=== PATIENT | male | born 1940 | race Caucasian/White ===

== ENCOUNTER → 2018-03-14 14:41 | Outpatient (CLI) | payer MEDICARE, OTHER, SELFPAY ==
[2018-03-14 15:49] LABS: Appearance Urine UA SL CLOUDY; Bilirubin Urine UA NEGATIVE (NEGATIVE); Color Urine UA YELLOW; Glucose Urine UA NEGATIVE (Normal); Ketones Urine UA NEGATIVE (NEGATIVE); Leukocyte Esterase Urine UA 3+ (NEGATIVE); Nitrite Urine UA POSITIVE (Negative); Occult Blood Urine UA TRACE-LYSED (Negative); Protein Urine UA NEGATIVE (Negative); Urobilinogen Urine UA 0.2 E.U./dL (0.2)
[2018-03-14 16:04] LABS: Bacteria Urine Many (>30); Culture Indicated Urine Specimen Cultured; RBC Urine 1-5/HPF (0-5/HPF); Squamous Epithelial Cell Urine 0-1 /HPF; WBC Urine 30-100/HPF (0-5/HPF)
== END ==
PROVIDERS: Family Provider Family Medicine; PCP Family Medicine; Visit Provider Family Medicine
DX: M54.9 Dorsalgia, unspecified (principal); R30.0 Dysuria
CPT/HCPCS: 81003; 81015; 87086

== ENCOUNTER → 2018-08-14 10:43 | Outpatient (CLI) | payer MEDICARE, OTHER, SELFPAY ==
[2018-08-14 11:36] LABS: Hematocrit 41.7 % (41-53); Hemoglobin 13.8 g/dL (13.5-17.5); Mean Corpuscular HGB Conc 33.1 % (30-36); Mean Corpuscular Hemoglobin 30.1 PG (26-34); Mean Corpuscular Volume 91.1 fL (80-100); Platelet Count 223 X10^3/uL (150-400); Red Blood Cell Count 4.58 X10^6/uL (4.5-5.9); Red Cell Distribution Width 13.6 % (11.6-14.8)
[2018-08-14 11:37] LABS: Appearance Urine UA SL CLOUDY; Bilirubin Urine UA NEGATIVE (NEGATIVE); Color Urine UA YELLOW; Glucose Urine UA NEGATIVE (Negative); Ketones Urine UA NEGATIVE (NEGATIVE); Leukocyte Esterase Urine UA 3+ (NEGATIVE); Nitrite Urine UA POSITIVE (Negative); Occult Blood Urine UA TRACE-INTACT (Negative); Protein Urine UA NEGATIVE (Negative); Urobilinogen Urine UA 0.2 E.U./dL (0.2); pH Urine UA 6.5 (4.5-8.0)
[2018-08-14 11:50] LABS: Alanine Aminotransferase 19 IU/L (21-72); Albumin 4.6 g/dL (3.5-5.0); Albumin Globulin Ratio 1.3 (1.0-2.8); Alkaline Phosphatase 89 U/L (38-126); Aspartate Aminotransferase 17 IU/L (17-59); Bilirubin Total 0.6 mg/dL (0.2-1.3); Blood Urea Nitrogen 11 mg/dL (9-20); Calcium 9.5 mg/dL (8.4-10.2); Carbon Dioxide 26 mmol/L (22-32); Chloride 101 mmol/L (98-107); Cholesterol 230 mg/dL (140-199); Estimated Glomerular Filt Rate > 60.0 mL/min (>60); Globulin 3.6 g/dL (1.7-4.1); Glucose 97 mg/dL (80-110); HDL Cholesterol 53 mg/dL (40-60); HEMOLYSIS < 15 (0-50); LDL Cholesterol Calculated 158 mg/dL (<100); Potassium 5.1 mmol/L (3.4-5.1); Sodium 137 mmol/L (137-145); Total Protein 8.2 g/dL (6.3-8.2); Triglycerides 96 mg/dL (35-150)
[2018-08-14 11:51] LABS: RBC Urine 0-1/HPF (0-5/HPF)
[2018-08-14 11:52] LABS: Amorphous Sediment Urine 2+; Bacteria Urine Moderate (10-30); Culture Indicated Urine Specimen Cultured; Squamous Epithelial Cell Urine 0-1 /HPF; WBC Urine 30-100/HPF (0-5/HPF)
[2018-08-14 12:19] LABS: Prostate Specific Antigen Scrn 1.72 ng/mL (0.1-4.0)
[2018-08-14 12:34] LABS: Vitamin D 25 Hydroxy (D3) 40.5 ng/mL (30.0-100.0)
== END ==
PROVIDERS: PCP Family Medicine; Visit Provider Family Medicine
DX: Z00.00 Encounter for general adult medical examination without abnormal findings (principal); E55.9 Vitamin D deficiency, unspecified; Z51.81 Encounter for therapeutic drug level monitoring; Z13.9 Encounter for screening, unspecified; Z12.5 Encounter for screening for malignant neoplasm of prostate
CPT/HCPCS: 36415; 80053; 80061; 81001; 82306; 85027; 87086; G0103

== ENCOUNTER → 2018-10-23 17:05 | Outpatient (CLI) | payer MEDICARE, OTHER, SELFPAY | PROVIDERS: Family Provider Family Medicine; PCP Family Medicine; Visit Provider Family Medicine | DX: R30.0 Dysuria (principal); R35.0 Frequency of micturition | CPT/HCPCS: 87086 ==

== ENCOUNTER → 2020-06-16 11:13 | Outpatient (CLI) | payer MEDICARE, OTHER, SELFPAY ==
[2020-06-16 12:13] LABS: Add Manual Diff / Slide Review NO; Basophils Absolute Auto 100 /uL (0-100); Basophils Percent Auto 1.2 % (0-2); Eosinophils Absolute Auto 200 /uL (0-450); Eosinophils Percent Auto 3.6 % (2-4); Hematocrit 40.5 % (41-53); Hemoglobin 13.7 g/dL (13.5-17.5); Lymphocytes Absolute Auto 1400 /uL (1100-4500); Lymphocytes Percent Auto 21.5 % (25-40); Mean Corpuscular HGB Conc 33.9 % (30-36); Mean Corpuscular Hemoglobin 30.4 PG (26-34); Mean Corpuscular Volume 89.9 fL (80-100); Monocytes Absolute Auto 600 /uL (0-900); Monocytes Percent Auto 9.5 % (3-14); Neutrophils Absolute Auto 4000 /uL (1500-7000); Neutrophils Percent Auto 64.2 % (50-75); Platelet Count 224 X10^3/uL (150-400); Red Cell Distribution Width 14.2 % (11.6-14.8); White Blood Cell Count 6.3 X10^3/uL (4.5-11.0)
[2020-06-16 12:47] LABS: Alanine Aminotransferase 13 IU/L (<50); Albumin 4.4 g/dL (3.5-5.0); Albumin Globulin Ratio 1.5 (1.0-2.8); Alkaline Phosphatase 93 U/L (38-126); Aspartate Aminotransferase 22 IU/L (17-59); BUN Creatinine Ratio 14.6 (6-22); Bilirubin Total 0.5 mg/dL (0.2-1.3); Blood Urea Nitrogen 13 mg/dL (9-20); Calcium 9.8 mg/dL (8.4-10.2); Carbon Dioxide 27 mmol/L (22-32); Chloride 98 mmol/L (98-107); Estimated Glomerular Filt Rate > 60.0 mL/min (>60); Globulin 2.9 g/dL (1.7-4.1); Glucose 97 mg/dL (80-110); HEMOLYSIS < 15 (0-50); Potassium 4.9 mmol/L (3.4-5.1); Sodium 130 mmol/L (137-145); Total Protein 7.3 g/dL (6.3-8.2)
[2020-06-16 13:04] LABS: Appearance Urine UA SL CLOUDY; Bilirubin Urine UA NEGATIVE (NEGATIVE); Color Urine UA YELLOW; Glucose Urine UA NEGATIVE (Negative); Ketones Urine UA NEGATIVE (NEGATIVE); Leukocyte Esterase Urine UA 3+ (NEGATIVE); Nitrite Urine UA POSITIVE (Negative); Occult Blood Urine UA 1+ (Negative); Protein Urine UA NEGATIVE (Negative); Urobilinogen Urine UA 0.2 E.U./dL (0.2); pH Urine UA 6.5 (4.5-8.0)
[2020-06-16 13:14] LABS: Amorphous Sediment Urine 1+; Bacteria Urine Moderate (10-30); Culture Indicated Urine Specimen Cultured; Mucus Urine 1+ (Negative); RBC Urine 1-5/HPF (0-5/HPF); Renal Epithelial Cells Urine 0-1/HPF (0-1/HPF); Squamous Epithelial Cell Urine 1-5 /HPF (0-5/HPF); WBC Urine 30-100/HPF (0-5/HPF)
[2020-06-16 13:17] LABS: TSH w/ Reflex to FT4 1.54 uIU/mL (0.47-4.68)
[2020-06-16 13:18] LABS: Prostate Specific Antigen Scrn 2.98 ng/mL (0.1-4.0)
== END ==
PROVIDERS: Family Provider Family Medicine; PCP Family Medicine; Referring Provider Family Medicine; Visit Provider Family Medicine
DX: Z00.00 Encounter for general adult medical examination without abnormal findings (principal); N40.0 Benign prostatic hyperplasia without lower urinary tract symptoms
CPT/HCPCS: 36415; 80053; 81001; 84153; 84443; 85025; 87086; G0103

== ENCOUNTER → 2020-07-02 11:10 | Outpatient (CLI) | payer MEDICARE, OTHER, SELFPAY ==
--- NOTE | 2020-07-02 11:11 | DI.US.S_ITS ---
PROCEDURE: US SOFT TISSUE HEAD AND NECK INDICATIONS: Cystic mass behind left ear TECHNIQUE: Real-time scanning was performed of the neck region of interest, with image documentation. COMPARISON: [facility], CT, HEAD WITHOUT CONTRAST, 01/07/2017, 12:35. FINDINGS: A cystic mass is identified posterior to the left ear inferiorly, comprised of a hypoechoic fluid-filled structure containing internal debris and septations with internal vascularity involving the septations and overall size 2.4 x 1.9 x 3.7 cm. Anterior and inferior to the right ear a complex predominantly solid mass also is seen with internal vascularity and overall measuring 2.5 x 1.1 x 2.9 cm. IMPRESSION: Bilateral complex masses are present adjacent to each year, measuring up to 3.7 cm on the left and 2.5 cm on the right. Recommend contrast-enhanced facial CT or MR scanning for further characterization. MR scanning would be preferred if possible. Neoplastic process would be suspected based on the imaging findings alone, bilaterally. Dictated by: Tristian Wells M.D. on 07/02/2020 at 13:01 Approved by: Tristian Wells M.D. on 07/02/2020 at 13:05
== END ==
PROVIDERS: Family Provider Family Medicine; PCP Family Medicine; Referring Provider Family Medicine; Visit Provider Family Medicine
DX: R22.1 Localized swelling, mass and lump, neck (principal)
CPT/HCPCS: 76536

== ENCOUNTER → 2020-07-30 11:30 | Outpatient (CLI) | payer MEDICARE, OTHER, SELFPAY ==
--- NOTE | 2020-07-30 11:31 | DI.MRI.S_ITS ---
PROCEDURE: MR ORBITS FACE NECK WO/W CON INDICATIONS: Assess bilateral masses inferior posterior ears TECHNIQUE: Sagittal/axial/coronal T1 spin echo and STIR. After the administration of contrast, axial/coronal/sagittal T1 fast spin echo with fat saturation through the neck. COMPARISON: None. FINDINGS: Image quality: Excellent. Lymph nodes: No enlarged nodes are seen throughout the neck. There is a cluster of small shotty, non pathologically enlarged lymph nodes inferior to the left parotid gland mass. Vessels: Visualized vasculature appears normal, with mony flow voids and enhancement. Neck spaces: The oropharynx, nasopharynx and pharynx are unremarkable, without mucosal lesions seen. Vocal cords, false vocal cords, pyriform sinuses, epiglottis, vallecula, and tongue base all appear normal. Extramucosal spaces of the neck also appear unremarkable. Glands: There are bilateral parotid gland region masses. The left parotid mass is multilobulated and likely cystic with increased T1 signal, measuring 2.4 by 1.9 x 2.4 cm. It does not enhance. The right parotid mass is relatively isointense to the parotid with very minimal peripheral enhancement. It is quite superficial. It measures perhaps 2.5 x 1.6 x 2.2 cm. It is immediately beneath the skin marker. The submandibular glands are unremarkable. Thyroid gland is unremarkable. Miscellaneous: Visualized brain and orbits appear normal. Lung apices appear clear. Superficial soft tissues appear normal. Visualized sinuses and mastoids appear clear. Bones: Marrow has normal overall signal. IMPRESSION: 1. 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 The left parotid gland mass is likely cystic. 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 Comment: Recommend ENT consultation. Dictated by: Juan Diego Welch M.D. on 07/30/2020 at 14:19 Approved by: Juan Diego Welch M.D. on 07/30/2020 at 14:26
== END ==
PROVIDERS: Family Provider Family Medicine; PCP Family Medicine; Referring Provider Family Medicine; Visit Provider Family Medicine
DX: H93.8X3 Other specified disorders of ear, bilateral (principal); R22.1 Localized swelling, mass and lump, neck
CPT/HCPCS: 70543

== ENCOUNTER → 2020-08-18 14:16 | Outpatient (CLI) | payer MEDICARE, OTHER, SELFPAY ==
[2020-08-19 16:27] LABS: Fecal Immunochemical Test Negative (Negative)
== END ==
PROVIDERS: Family Provider Family Medicine; PCP Family Medicine; Referring Provider Family Medicine; Visit Provider Family Medicine
DX: Z12.11 Encounter for screening for malignant neoplasm of colon (principal)
CPT/HCPCS: 82274

== ENCOUNTER 2020-10-20 12:15 | Outpatient (RCR) | payer MEDICARE, OTHER, SELFPAY ==
--- NOTE | 2020-10-06 16:01 | PT.OIE ---
Current Diagnoses Unsteadiness on feet (10/06/20) Past Medical History (Last Updated 06/16/20 @ 12:05 by Hany Mayberry DO) BPH (benign prostatic hyperplasia) Erectile dysfunction Gait instability Neck mass Toenail fungus Uses walker Well adult exam Past Surgical History (Last Updated 10/03/19 @ 20:31 by Chelsie De Luna) Anesthesia History of cataract removal with insertion of prosthetic lens Visit Care Team Role Provider Type Hany Mayberry DO Attending Provider Physician Family Provider Primary Care Provider Referring Provider Specialty: [facility] Address: [address] [place] [address] Email: [email or web address] Initial Evaluation PT-OP-A Visit Information Start: 09/25/20 08:01 Freq: Status: Active Protocol: Document 10/06/20 13:46 MB (Rec: 10/06/20 14:05 MB [id number]) Out-Patient Physical Therapy Visit Information Visit Information Visit Type Initial Evaluation Visit Note Medicare Pt arrives with Glo, family member Visit Start Time 13:46 Visit Stop Time 14:30 Total Visit Minutes 44 Visit Number 1 Precautions Precautions Central appearing mobility, cannot stand or walk without assist PT-OP-B Current Condition Start: 09/25/20 08:01 Freq: Status: Active Protocol: Document 10/06/20 13:46 MB (Rec: 10/06/20 14:05 MB [id number]) Current Condition History of Current Condition Onset Date 10 years Current Complaints Leg weakness History of Current Condition Pt reports that he was on statins for 5 years and his legs got weak. His doctor told him that he could get off of them and his weakness stayed the same. 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 Pt fell 6 months ago over a mat in the bathroom. He could not get up. He reports he bruised his left ribs. Mike has two houses. He has one in [place]. 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 Mike has a life line, uses a rollator, walk-in bath, raised commode. Pt has been using the walker about 5 years . PMH: falls, left sided rib pain 4/10, medial thigh pain, smoking, arthritis, occ dizziness with sharp turns when walking and no dizziness in bed. Pt reports that he is sedentary in general. Treatment Goals Patient/Caregiver Goals To be able to walk again without a wheelchair or walker PT-OP-C Subjective Start: 09/25/20 08:01 Freq: Status: Active Protocol: Document 10/06/20 13:46 MB (Rec: 10/06/20 14:05 MB [id number]) OP-PT Subjective Patient Comments Patient Comments See history of current condition Patient Questionnaires Lower Extremity Functional Scale LEFS Score 17 LEFS Impairment 60 to 79% Impaired (Score 17- 31) PT-OP-D Balance Start: 09/25/20 08:01 Freq: Status: Active Protocol: Document 10/06/20 13:46 MB (Rec: 10/06/20 16:01 MB [id number]) OP-PT Balance Assessment Sitting Balance Static Sitting Balance Ability Fair Dynamic Sitting Balance Ability Fair Sitting Balance Comments UE support for dynamic sitting including LAQ for MMT, posterior lean into w/c Standing Balance Static Standing Balance Ability Poor Dynamic Standing Balance Ability Poor Standing Balance Comments Pt cannot stand upright without use of rollator or forearm assist from PT and he is very uncomfortable with standing without rollator. He has bounce-type response through legs with standing up, ataxic movement and inability to support his weight through his legs. Mod A to stand without AD and CGA for standing with rollator Balance Tests Other Other Balance Tests Performed Unable to tolerate any balance testing Thomas Fall Scale Copyright Permission PT-OP-G Mobility & Gait Start: 09/25/20 08:01 Freq: Status: Active Protocol: Document 10/06/20 13:46 MB (Rec: 10/06/20 16:01 MB [id number]) OP Mobility Evaluation Transfers Sit to Stand Cues to lock w/c and to push up from the w/c. Pte tends to stand up using rollator that is unlocked and then unsafely back in w/c, not stepping back with rollator and not square to seat. CGA and cues Wheelchair Management Assessment Details Pt requires assistance to manage wheelchair as he is weak through arms to push it-- max A to dependent OP Gait Assessment Gait Gait Assistance Required: Contact Guard Assist,1 Person Assist Distance (Feet) 40 Able to Maintain Weight Bearing Status Yes During Gait Assistive Devices Assistive Device Gait Belt,4 Wheeled Walker Orthotic/Prosthetic Devices or Brace: No Gait Deviations General Gait Pattern Ataxic,Decreased Stride Length ,Decreased Feet Clearance, Flexed Trunk,Step-to Gait Factors Limiting Gait Function Factors Limiting Gait Function Abnormal Tonal Influences, Decreased Activity Tolerance, Decreased Strength,Difficulty Following Directions, Incoordination,Poor Balance, Poor Safety Awareness Comments Gait Comments Pt's gait is ataxic and appears to have a tonal/clonus type bounce through his hips and knees that appears to be central in nature--trouble with legs accepting weight when he gets to his feet Stair Climbing Evaluation Comments Stair Climbing Comments Unable to do steps PT-OP-H Neuro Start: 10/06/20 15:41 Freq: Status: Active Protocol: Document 10/06/20 13:46 MB (Rec: 10/06/20 16:01 MB [id number]) Sensation Evaluation Gross Sensation Gross Sensation WNL Comments Summary Comments Pt presents with reduced proprioception left great toe. Right great toe is intact. He reports occ pain through his inner B thighs and unsure if this is sensation description. Coordination Evaluation Upper Extremity Tests Left Pronation/Supination Test Severe Impairment Right Pronation/Supination Test Minimal Impairment Lower Extremity Tests Left Foot Tapping Test Moderate Impairment Right Foot Tapping Test Minimal Impairment Comments Coordination Comments For foot tapping, pt tapping over opposite foot to the floor PT-OP-K Range of Motion Start: 09/25/20 08:01 Freq: Status: Active Protocol: Document 10/06/20 13:46 MB (Rec: 10/06/20 16:01 MB [id number]) TMJ Range of Motion Comments Comments Smile is equal and normal B Shoulder Goniometric Range of Motion Shoulder Bilateral Shoulder ROM WFL Yes Testing Position Sitting Comments Shoulder flexion in sitting assessed Knee Goniometric Range of Motion Knee Bilateral Knee ROM WFL Yes Patient Position Sitting Comments Extension is normal in sitting , movement is dysmetric, ataxic B Ankle and Foot Goniometric Range of Motion Ankle and Foot ROM Limitations Comments Limited B DF and PF, no clonus detected with rapid passive DF PT-OP-M Strength Start: 09/25/20 08:01 Freq: Status: Active Protocol: Document 10/06/20 13:46 MB (Rec: 10/06/20 16:01 MB [id number]) Shoulder Strength Shoulder Manual Muscle Testing Left Flexion 3+ Fair+ Right Flexion 4 Good Knee Strength Knee Manual Muscle Testing Left Extension (L3) 3+ Fair+ Right Extension (L3) 4 Good Ankle/Foot Strength Ankle and Foot Manual Muscle Testing Bilateral Comments Pt does not follow commands well for ankle MMT or great toe MMT, weaker on the left PT-OP-T Assessment and Plan Start: 09/25/20 08:01 Freq: Status: Active Protocol: Document 10/06/20 13:46 MB (Rec: 10/06/20 16:01 MB [id number]) Physical Therapy Assessment Rehab Potential Rehabilitation Potential Fair Evaluation Complexity Number of Personal Factors/Comorbidities 3 or More Number of Body Systems Impaired 3 Clinical Presentation at Evaluation Evolving Impairments Impairments Activity Tolerance,Balance, Coordination,Functional Activities,Functional Mobility ,Gait,Sensation,Strength, Transfers Other Impairments Personal factors include poor historian, smoking, home alone and trouble getting transportation. Body systems include cardiopulmonary, neurological and orthopedic. His clinical presentation is evolving. Other Concerns Fall Risk Yes Goals 3 Care Home Goal (LTG) Pt will perform HEP with I including safe transfers, pre- gait and strengthening exercises to improve I and balance by 12/08/20. LTG Duration 8 weeks 2 Care Home Goal (LTG) Pt will perform WNLs on Tinetti balance test to decrease fall risk by 12/08/20. LTG Duration 8 weeks 1 Care Home Goal (LTG) Pt will perform sit to stand transfers with I and proper hand positioning and distance from chair and AD to decrease fall risk with transfers by 05/21. LTG Duration 8 weeks Assessment Summary Assessment Pt is an 80 y/o male presenting with reports of long onset of LE weakness that he thought might be due to statin use in the past. He denies cardiopulmonary and central processes, spinal and other injuries. Pt presents with trouble with weight acceptance through B LEs and his presentation is bounce- like, dysmetric and ataxic. His gait has a similar pattern . Rapid supination and pronation is dyskinetic left upper extremity and he has greater weakness on his left side compared to this right in both his UEs and LEs. He has reduced proprioception left great toe. Overall, PT is concerned about an underlying central process and recommends return to Dr. Mayberry for further work-up and possible neurology consult. PT can continue to see pt for safety, transfer and gait training to help decrease fall risk and improve function. Physical Therapy Plan Frequency and Duration Frequency of Treatment 2x/Week Duration of Treatment 8 weeks Plan of Care Start Date 10/06/20 Plan of Care End Date 12/08/20 Therapeutic Interventions Therapeutic Interventions Balance Training,Canalithic Repositioning,Coordination Training,Gait Training,Home Exercise Program,Manual Therapy,Neuromuscular Re- education,Patient/Caregiver Education,Self-Care/Home Management,Soft Tissue Mobilization,Taping, Therapeutic Activities, Therapeutic Exercises, Vestibular Rehabilitation, Wheelchair Management Modalities Cold Pack/Ice Massage,Hot Packs Other Referrals/Consults Referrals/Consults Recommended Return to Dr. Mayberry for possible spine and brain diagnostics and neurology consult. Next Visit Focus/Plan Next Note Type Treatment Note Next Visit Plan Initiate recumbent stepper and safe sit to stand training
--- NOTE | 2020-10-06 16:01 | PT.OPPOC ---
Addendum entered and electronically signed by Ela Magana PT 10/13/20 15:29: Resend to Dr. Mayberry Original Note: Physical, Occupational & Speech Therapy At [facility] Current Diagnoses Unsteadiness on feet (10/06/20) Visit Care Team Role Provider Type Hany Mayberry DO Attending Provider Physician Family Provider Primary Care Provider Referring Provider Specialty: Family Practice Address: [address] [place] [address], [facility] Email: [email or web address] PT-OP-T Assessment and Plan Start: 09/25/20 08:01 Freq: Status: Active Protocol: Document 10/06/20 13:46 MB (Rec: 10/06/20 16:01 MB [id number]) Physical Therapy Assessment Rehab Potential Rehabilitation Potential Fair Evaluation Complexity Number of Personal Factors/Comorbidities 3 or More Number of Body Systems Impaired 3 Clinical Presentation at Evaluation Evolving Impairments Impairments Activity Tolerance,Balance, Coordination,Functional Activities,Functional Mobility ,Gait,Sensation,Strength, Transfers Other Impairments Personal factors include poor historian, smoking, home alone and trouble getting transportation. Body systems include cardiopulmonary, neurological and orthopedic. His clinical presentation is evolving. Other Concerns Fall Risk Yes Goals 3 Seed Buyer Goal (LTG) Pt will perform HEP with I including safe transfers, pre- gait and strengthening exercises to improve I and balance by 12/08/20. LTG Duration 8 weeks 2 Seed Buyer Goal (LTG) Pt will perform WNLs on Tinetti balance test to decrease fall risk by 12/08/20. LTG Duration 8 weeks 1 Fpc Goal (LTG) Pt will perform sit to stand transfers with I and proper hand positioning and distance from chair and AD to decrease fall risk with transfers by 05/21. LTG Duration 8 weeks Assessment Summary Assessment Pt is an 80 y/o male presenting with reports of long onset of LE weakness that he thought might be due to statin use in the past. He denies cardiopulmonary and central processes, spinal and other injuries. Pt presents with trouble with weight acceptance through B LEs and his presentation is bounce- like, dysmetric and ataxic. His gait has a similar pattern . Rapid supination and pronation is dyskinetic left upper extremity and he has greater weakness on his left side compared to this right in both his UEs and LEs. He has reduced proprioception left great toe. Overall, PT is concerned about an underlying central process and recommends return to Dr. Mayberry for further work-up and possible neurology consult. PT can continue to see pt for safety, transfer and gait training to help decrease fall risk and improve function. Physical Therapy Plan Frequency and Duration Frequency of Treatment 2x/Week Duration of Treatment 8 weeks Plan of Care Start Date 10/06/20 Plan of Care End Date 12/08/20 Therapeutic Interventions Therapeutic Interventions Balance Training,Canalithic Repositioning,Coordination Training,Gait Training,Home Exercise Program,Manual Therapy,Neuromuscular Re- education,Patient/Caregiver Education,Self-Care/Home Management,Soft Tissue Mobilization,Taping, Therapeutic Activities, Therapeutic Exercises, Vestibular Rehabilitation, Wheelchair Management Modalities Cold Pack/Ice Massage,Hot Packs Other Referrals/Consults Referrals/Consults Recommended Return to Dr. Mayberry for possible spine and brain diagnostics and neurology consult. Next Visit Focus/Plan Next Note Type Treatment Note Next Visit Plan Initiate recumbent stepper and safe sit to stand training Plan of Care Dates Plan of Care Start Date 10/06/20 Plan of Care End Date 12/08/20 Electronically Signed by: Ela Magana PT 10/06/20 [id number] Please Sign and Return: I have reviewed this Plan of Care and certify that the skilled therapy services above are required to meet the patient?s needs. Physician Signature Date Printed Name and Credentials Clinical Instructor Signature Printed Name and Credentials
--- NOTE | 2020-10-13 15:29 | PT.OTN ---
Current Diagnoses Unsteadiness on feet (10/13/20) Weakness (10/13/20) Physical Therapy Treatment Note PT-OP-A Visit Information Start: 09/25/20 08:01 Freq: Status: Active Protocol: Document 10/13/20 13:46 MB (Rec: 10/13/20 14:29 MB [id number]) Out-Patient Physical Therapy Visit Information Visit Information Visit Type Treatment Note Visit Note Medicare Pt's , Glo, comes with him Visit Start Time 13:46 Visit Stop Time 14:30 Total Visit Minutes 44 Visit Number 2 Precautions Precautions Central appearing mobility, cannot stand or walk without assist PT-OP-B Current Condition Start: 09/25/20 08:01 Freq: Status: Active Protocol: Document 10/06/20 13:46 MB (Rec: 10/06/20 14:05 MB [id number]) Current Condition History of Current Condition Onset Date 10 years Current Complaints Leg weakness History of Current Condition Pt reports that he was on statins for 5 years and his legs got weak. His doctor told him that he could get off of them and his weakness stayed the same. 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 Pt fell 6 months ago over a mat in the bathroom. He could not get up. He reports he bruised his left ribs. Pt has two houses. He has one in [place]. 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 Pt has a life line, uses a rollator, walk-in bath, raised commode. Pt has been using the walker about 5 years . PMH: falls, left sided rib pain 4/10, medial thigh pain, smoking, arthritis, occ dizziness with sharp turns when walking and no dizziness in bed. Pt reports that he is sedentary in general. Treatment Goals Patient/Caregiver Goals To be able to walk again without a wheelchair or walker PT-OP-C Subjective Start: 09/25/20 08:01 Freq: Status: Active Protocol: Document 10/13/20 13:46 MB (Rec: 10/13/20 14:29 MB [id number]) OP-PT Subjective Patient Comments Patient Comments Pt denies falls since evaluation. Pt and partner, Glo, state that they have not heard anything from the doctor's office. PT-OP-D Balance Start: 09/25/20 08:01 Freq: Status: Active Protocol: Document 10/06/20 13:46 MB (Rec: 10/06/20 16:01 MB [id number]) OP-PT Balance Assessment Sitting Balance Static Sitting Balance Ability Fair Dynamic Sitting Balance Ability Fair Sitting Balance Comments UE support for dynamic sitting including LAQ for MMT, posterior lean into w/c Standing Balance Static Standing Balance Ability Poor Dynamic Standing Balance Ability Poor Standing Balance Comments Pt cannot stand upright without use of rollator or forearm assist from PT and he is very uncomfortable with standing without rollator. He has bounce-type response through legs with standing up, ataxic movement and inability to support his weight through his legs. Mod A to stand without AD and CGA for standing with rollator Balance Tests Other Other Balance Tests Performed Unable to tolerate any balance testing Thomas Fall Scale Copyright Permission PT-OP-G Mobility & Gait Start: 09/25/20 08:01 Freq: Status: Active Protocol: Document 10/06/20 13:46 MB (Rec: 10/06/20 16:01 MB [id number]) OP Mobility Evaluation Transfers Sit to Stand Cues to lock w/c and to push up from the w/c. Pte tends to stand up using rollator that is unlocked and then unsafely back in w/c, not stepping back with rollator and not square to seat. CGA and cues Wheelchair Management Assessment Details Pt requires assistance to manage wheelchair as he is weak through arms to push it-- max A to dependent OP Gait Assessment Gait Gait Assistance Required: Contact Guard Assist,1 Person Assist Distance (Feet) 40 Able to Maintain Weight Bearing Status Yes During Gait Assistive Devices Assistive Device Gait Belt,4 Wheeled Walker Orthotic/Prosthetic Devices or Brace: No Gait Deviations General Gait Pattern Ataxic,Decreased Stride Length ,Decreased Feet Clearance, Flexed Trunk,Step-to Gait Factors Limiting Gait Function Factors Limiting Gait Function Abnormal Tonal Influences, Decreased Activity Tolerance, Decreased Strength,Difficulty Following Directions, Incoordination,Poor Balance, Poor Safety Awareness Comments Gait Comments Pt's gait is ataxic and appears to have a tonal/clonus type bounce through his hips and knees that appears to be central in nature--trouble with legs accepting weight when he gets to his feet Stair Climbing Evaluation Comments Stair Climbing Comments Unable to do steps PT-OP-H Neuro Start: 10/06/20 15:41 Freq: Status: Active Protocol: Document 10/06/20 13:46 MB (Rec: 10/06/20 16:01 MB [id number]) Sensation Evaluation Gross Sensation Gross Sensation WNL Comments Summary Comments Pt presents with reduced proprioception left great toe. Right great toe is intact. He reports occ pain through his inner B thighs and unsure if this is sensation description. Coordination Evaluation Upper Extremity Tests Left Pronation/Supination Test Severe Impairment Right Pronation/Supination Test Minimal Impairment Lower Extremity Tests Left Foot Tapping Test Moderate Impairment Right Foot Tapping Test Minimal Impairment Comments Coordination Comments For foot tapping, pt tapping over opposite foot to the floor PT-OP-K Range of Motion Start: 09/25/20 08:01 Freq: Status: Active Protocol: Document 10/06/20 13:46 MB (Rec: 10/06/20 16:01 MB [id number]) TMJ Range of Motion Comments Comments Smile is equal and normal B Shoulder Goniometric Range of Motion Shoulder Bilateral Shoulder ROM WFL Yes Testing Position Sitting Comments Shoulder flexion in sitting assessed Knee Goniometric Range of Motion Knee Bilateral Knee ROM WFL Yes Patient Position Sitting Comments Extension is normal in sitting , movement is dysmetric, ataxic B Ankle and Foot Goniometric Range of Motion Ankle and Foot ROM Limitations Comments Limited B DF and PF, no clonus detected with rapid passive DF PT-OP-M Strength Start: 09/25/20 08:01 Freq: Status: Active Protocol: Document 10/06/20 13:46 MB (Rec: 10/06/20 16:01 MB [id number]) Shoulder Strength Shoulder Manual Muscle Testing Left Flexion 3+ Fair+ Right Flexion 4 Good Knee Strength Knee Manual Muscle Testing Left Extension (L3) 3+ Fair+ Right Extension (L3) 4 Good Ankle/Foot Strength Ankle and Foot Manual Muscle Testing Bilateral Comments Pt does not follow commands well for ankle MMT or great toe MMT, weaker on the left PT-OP-Q Treatments Start: 09/25/20 08:01 Freq: Status: Active Protocol: Document 10/13/20 13:46 MB (Rec: 10/13/20 14:29 MB [id number]) Cardio Equipment Recumbent Bicycle Duration (Minutes) 8 Resistance 4 Seat Position 10 Other Sats 99% and HR 94 BPM Therapeutic Activity Therapeutic Activity Sit to stand transfers Comments Pt is very unsafe, reaches forward for whatever is in front of him--unlocked w/c, rollator, machine and then pivots around. Multiple trials sit to stand with cues to back up, touch seat with legs, reach back for and push up from chair for safety. Used w/ c, rollator and RW. Stand pivot transfers as well. Pt holds onto locked rollator, reaches for the back, turns around and then sits, rollator moves and he plops down, uneven in seat. Cues, CGA and PT makes sure equipment is set up well. Dysmetric movement, slow, decreased safety awareness. Multiple transfer trials, at least 10 Gait Training Gait Activity Gait with walker Comments Pt does not bring in rollator and comes in with [facility] w/c. Ed in proper gait training with RW right height 5'9 grossly, and pt has ataxic gait with step-to pattern left and then right foot, bouncing weakness through his legs with stepping , slow gait. 30' with rolling walker and pt presents with worsening dysmetria with gait and unsteadiness. CGA. Several small gait trials with rollator and pt with foot drop and tends to keep right foot out of walker and occ runs over right foot with rollator with right turning. 25'x2 and 5'x4. PT-OP-T Assessment and Plan Start: 09/25/20 08:01 Freq: Status: Active Protocol: Document 10/13/20 13:46 MB (Rec: 10/13/20 14:29 MB [id number]) Physical Therapy Assessment Rehab Potential Rehabilitation Potential Fair Evaluation Complexity Number of Personal Factors/Comorbidities 3 or More Number of Body Systems Impaired 3 Clinical Presentation at Evaluation Evolving Impairments Impairments Activity Tolerance,Balance, Coordination,Functional Activities,Functional Mobility ,Gait,Sensation,Strength, Transfers Other Impairments Personal factors include poor historian, smoking, home alone and trouble getting transportation. Body systems include cardiopulmonary, neurological and orthopedic. His clinical presentation is evolving. Other Concerns Fall Risk Yes Goals 3 Watch Hairspring Assembler Goal (LTG) Pt will perform HEP with I including safe transfers, pre- gait and strengthening exercises to improve I and balance by 12/08/20. LTG Duration 8 weeks 2 Watch Hairspring Assembler Goal (LTG) Pt will perform WNLs on Tinetti balance test to decrease fall risk by 12/08/20. LTG Duration 8 weeks 1 Assisted Goal (LTG) Pt will perform sit to stand transfers with I and proper hand positioning and distance from chair and AD to decrease fall risk with transfers by 05/21. LTG Duration 8 weeks Assessment Summary Assessment PT left message on Dr. Mayberry's VM today about recommendation for pt to follow-up with him and pt's significant other, Glo, goes to his office during PT visit to follow-up about getting another appointment with him. PT con't to be concerned about a central process such as old stroke or spinal issue (possible cervical spine). Initiated exercise today and pt fatigues quickly. Initiated transfer and gait training. Pt requires several rest breaks with recumbent stepper and transfer and gait trials. Physical Therapy Plan Frequency and Duration Frequency of Treatment 2x/Week Duration of Treatment 8 weeks Plan of Care Start Date 10/06/20 Plan of Care End Date 12/08/20 Therapeutic Interventions Therapeutic Interventions Balance Training,Canalithic Repositioning,Coordination Training,Gait Training,Home Exercise Program,Manual Therapy,Neuromuscular Re- education,Patient/Caregiver Education,Self-Care/Home Management,Soft Tissue Mobilization,Taping, Therapeutic Activities, Therapeutic Exercises, Vestibular Rehabilitation, Wheelchair Management Modalities Cold Pack/Ice Massage,Hot Packs Other Referrals/Consults Referrals/Consults Recommended Return to Dr. Mayberry for possible spine and brain diagnostics and neurology consult. Next Visit Focus/Plan Next Note Type Treatment Note Next Visit Plan Progress functional exercises, gait training, stepper
--- NOTE | 2020-10-16 14:37 | PT.OTN ---
Current Diagnoses Unsteadiness on feet (10/16/20) Weakness (10/16/20) Physical Therapy Treatment Note PT-OP-A Visit Information Start: 09/25/20 08:01 Freq: Status: Active Protocol: Document 10/16/20 13:48 MB (Rec: 10/16/20 14:37 MB [id number]) Out-Patient Physical Therapy Visit Information Visit Information Visit Type Treatment Note Visit Note Medicare Glo attends appointment Visit Start Time 13:48 Visit Stop Time 14:15 Total Visit Minutes 42 Visit Number 3 Precautions Precautions Central appearing mobility, cannot stand or walk without assist PT-OP-B Current Condition Start: 09/25/20 08:01 Freq: Status: Active Protocol: Document 10/06/20 13:46 MB (Rec: 10/06/20 14:05 MB [id number]) Current Condition History of Current Condition Onset Date 10 years Current Complaints Leg weakness History of Current Condition Pt reports that he was on statins for 5 years and his legs got weak. His doctor told him that he could get off of them and his weakness stayed the same. 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 Pt fell 6 months ago over a mat in the bathroom. He could not get up. He reports he bruised his left ribs. Pt has two houses. He has one in [place]. 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 Pt has a life line, uses a rollator, walk-in bath, raised commode. Pt has been using the walker about 5 years . PMH: falls, left sided rib pain 4/10, medial thigh pain, smoking, arthritis, occ dizziness with sharp turns when walking and no dizziness in bed. Pt reports that he is sedentary in general. Treatment Goals Patient/Caregiver Goals To be able to walk again without a wheelchair or walker PT-OP-C Subjective Start: 09/25/20 08:01 Freq: Status: Active Protocol: Document 10/16/20 13:48 MB (Rec: 10/16/20 14:37 MB [id number]) OP-PT Subjective Patient Comments Patient Comments Pt and Glo state that they have appointment with Dr. Mayberry on 10/21/20. PT-OP-D Balance Start: 09/25/20 08:01 Freq: Status: Active Protocol: Document 10/06/20 13:46 MB (Rec: 10/06/20 16:01 MB [id number]) OP-PT Balance Assessment Sitting Balance Static Sitting Balance Ability Fair Dynamic Sitting Balance Ability Fair Sitting Balance Comments UE support for dynamic sitting including LAQ for MMT, posterior lean into w/c Standing Balance Static Standing Balance Ability Poor Dynamic Standing Balance Ability Poor Standing Balance Comments Pt cannot stand upright without use of rollator or forearm assist from PT and he is very uncomfortable with standing without rollator. He has bounce-type response through legs with standing up, ataxic movement and inability to support his weight through his legs. Mod A to stand without AD and CGA for standing with rollator Balance Tests Other Other Balance Tests Performed Unable to tolerate any balance testing Thomas Fall Scale Copyright Permission PT-OP-G Mobility & Gait Start: 09/25/20 08:01 Freq: Status: Active Protocol: Document 10/06/20 13:46 MB (Rec: 10/06/20 16:01 MB [id number]) OP Mobility Evaluation Transfers Sit to Stand Cues to lock w/c and to push up from the w/c. Pte tends to stand up using rollator that is unlocked and then unsafely back in w/c, not stepping back with rollator and not square to seat. CGA and cues Wheelchair Management Assessment Details Pt requires assistance to manage wheelchair as he is weak through arms to push it-- max A to dependent OP Gait Assessment Gait Gait Assistance Required: Contact Guard Assist,1 Person Assist Distance (Feet) 40 Able to Maintain Weight Bearing Status Yes During Gait Assistive Devices Assistive Device Gait Belt,4 Wheeled Walker Orthotic/Prosthetic Devices or Brace: No Gait Deviations General Gait Pattern Ataxic,Decreased Stride Length ,Decreased Feet Clearance, Flexed Trunk,Step-to Gait Factors Limiting Gait Function Factors Limiting Gait Function Abnormal Tonal Influences, Decreased Activity Tolerance, Decreased Strength,Difficulty Following Directions, Incoordination,Poor Balance, Poor Safety Awareness Comments Gait Comments Pt's gait is ataxic and appears to have a tonal/clonus type bounce through his hips and knees that appears to be central in nature--trouble with legs accepting weight when he gets to his feet Stair Climbing Evaluation Comments Stair Climbing Comments Unable to do steps PT-OP-H Neuro Start: 10/06/20 15:41 Freq: Status: Active Protocol: Document 10/06/20 13:46 MB (Rec: 10/06/20 16:01 MB [id number]) Sensation Evaluation Gross Sensation Gross Sensation WNL Comments Summary Comments Pt presents with reduced proprioception left great toe. Right great toe is intact. He reports occ pain through his inner B thighs and unsure if this is sensation description. Coordination Evaluation Upper Extremity Tests Left Pronation/Supination Test Severe Impairment Right Pronation/Supination Test Minimal Impairment Lower Extremity Tests Left Foot Tapping Test Moderate Impairment Right Foot Tapping Test Minimal Impairment Comments Coordination Comments For foot tapping, pt tapping over opposite foot to the floor PT-OP-K Range of Motion Start: 09/25/20 08:01 Freq: Status: Active Protocol: Document 10/06/20 13:46 MB (Rec: 10/06/20 16:01 MB [id number]) TMJ Range of Motion Comments Comments Smile is equal and normal B Shoulder Goniometric Range of Motion Shoulder Bilateral Shoulder ROM WFL Yes Testing Position Sitting Comments Shoulder flexion in sitting assessed Knee Goniometric Range of Motion Knee Bilateral Knee ROM WFL Yes Patient Position Sitting Comments Extension is normal in sitting , movement is dysmetric, ataxic B Ankle and Foot Goniometric Range of Motion Ankle and Foot ROM Limitations Comments Limited B DF and PF, no clonus detected with rapid passive DF PT-OP-M Strength Start: 09/25/20 08:01 Freq: Status: Active Protocol: Document 10/06/20 13:46 MB (Rec: 10/06/20 16:01 MB [id number]) Shoulder Strength Shoulder Manual Muscle Testing Left Flexion 3+ Fair+ Right Flexion 4 Good Knee Strength Knee Manual Muscle Testing Left Extension (L3) 3+ Fair+ Right Extension (L3) 4 Good Ankle/Foot Strength Ankle and Foot Manual Muscle Testing Bilateral Comments Pt does not follow commands well for ankle MMT or great toe MMT, weaker on the left PT-OP-Q Treatments Start: 09/25/20 08:01 Freq: Status: Active Protocol: Document 10/16/20 13:48 MB (Rec: 10/16/20 14:37 MB [id number]) Cardio Equipment Recumbent Bicycle Duration (Minutes) 10 Resistance 4 Seat Position 10 Other 5', 2.5', 1', 1.5' rests d/t leg weakness Therapeutic Activity Therapeutic Activity Sit to stand transfers Comments Cues for hand placement on chair to push up, rollator locked, reach back for chair to sit. 6 reps. Pt occ holds onto walker Pt is unsafe with moving from standing at rollator to sitting on it--he does lock it and then reaches around frame and then his right knee twists when he moves to sitting on it and does not end of square on it. Cues for transferring to PT clinic chairs and machine, cues to back up to it. Gait Training Gait Activity Gait with walker Comments Many gait trials with rollator and he presents with ataxic/ bouncing-type gait with trouble with weight acceptance on legs when the spinal cord is loaded. Heavy UE use on rollator and on // bars with gait. Gait several trials with rollator and then in // bars with B UE support and stepping over mini hurdles, made harder when put unstable foams between them. 6 reps of hurdles and pt limits just using right hand and tends to use both PT-OP-T Assessment and Plan Start: 09/25/20 08:01 Freq: Status: Active Protocol: Document 10/16/20 13:48 MB (Rec: 10/16/20 14:37 MB [id number]) Physical Therapy Assessment Rehab Potential Rehabilitation Potential Fair Evaluation Complexity Number of Personal Factors/Comorbidities 3 or More Number of Body Systems Impaired 3 Clinical Presentation at Evaluation Evolving Impairments Impairments Activity Tolerance,Balance, Coordination,Functional Activities,Functional Mobility ,Gait,Sensation,Strength, Transfers Other Impairments Personal factors include poor historian, smoking, home alone and trouble getting transportation. Body systems include cardiopulmonary, neurological and orthopedic. His clinical presentation is evolving. Other Concerns Fall Risk Yes Goals 3 Senior Living Goal (LTG) Pt will perform HEP with I including safe transfers, pre- gait and strengthening exercises to improve I and balance by 12/08/20. LTG Duration 8 weeks 2 Senior Living Goal (LTG) Pt will perform WNLs on Tinetti balance test to decrease fall risk by 12/08/20. LTG Duration 8 weeks 1 Senior Living Goal (LTG) Pt will perform sit to stand transfers with I and proper hand positioning and distance from chair and AD to decrease fall risk with transfers by 05/21. LTG Duration 8 weeks Assessment Summary Assessment Progressed gait exercises today and pt is better with transfers but con't to have some transfers with decreased safety of hand placement and movement of legs. Pt will benefit from ongoing gait training, resisted exercises, consider exercises for home. Physical Therapy Plan Frequency and Duration Frequency of Treatment 2x/Week Duration of Treatment 8 weeks Plan of Care Start Date 10/06/20 Plan of Care End Date 12/08/20 Therapeutic Interventions Therapeutic Interventions Balance Training,Canalithic Repositioning,Coordination Training,Gait Training,Home Exercise Program,Manual Therapy,Neuromuscular Re- education,Patient/Caregiver Education,Self-Care/Home Management,Soft Tissue Mobilization,Taping, Therapeutic Activities, Therapeutic Exercises, Vestibular Rehabilitation, Wheelchair Management Modalities Cold Pack/Ice Massage,Hot Packs Other Referrals/Consults Referrals/Consults Recommended Return to Dr. Mayberry for possible spine and brain diagnostics and neurology consult. Next Visit Focus/Plan Next Note Type Treatment Note Next Visit Plan Con't sit to stands, consider leg press shuttle, further gait and balance training in / / bars, consider 6MWT when ready.
--- NOTE | 2020-10-20 13:15 | PT.OTN ---
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 Visit Start Time 12:20 Visit Stop Time 13:15 Total Visit Minutes 55 Visit Number 4 Number of COOKY MACHINE OPERATOR Visits 5 PT-OP-B Current Condition Start: 09/25/20 08:01 Freq: Status: Active Protocol: Document 10/06/20 13:46 MB (Rec: 10/06/20 14:05 MB [id number]) Current Condition History of Current Condition Onset Date 10 years Current Complaints Leg weakness History of Current Condition Pt reports that he was on statins for 5 years and his legs got weak. His doctor told him that he could get off of them and his weakness stayed the same. 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 Pt fell 6 months ago over a mat in the bathroom. He could not get up. He reports he bruised his left ribs. Pt has two houses. He has one in [place]. 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 Pt has a life line, uses a rollator, walk-in bath, raised commode. Pt has been using the walker about 5 years . PMH: falls, left sided rib pain 4/10, medial thigh pain, smoking, arthritis, occ dizziness with sharp turns when walking and no dizziness in bed. Pt reports that he is sedentary in general. Treatment Goals Patient/Caregiver Goals To be able to walk again without a wheelchair or walker PT-OP-C Subjective Start: 09/25/20 08:01 Freq: Status: Active Protocol: Document 10/20/20 12:20 SP (Rec: 10/20/20 13:46 SP [id number]) OP-PT Subjective Patient Comments Patient Comments Pt and Glo state that they have appointment with Dr. Mayberry on 10/21/20. Pt stated he is hoping to find reasons for decreased balance on L side. PT-OP-D Balance Start: 09/25/20 08:01 Freq: Status: Active Protocol: Document 10/06/20 13:46 MB (Rec: 10/06/20 16:01 MB [id number]) OP-PT Balance Assessment Sitting Balance Static Sitting Balance Ability Fair Dynamic Sitting Balance Ability Fair Sitting Balance Comments UE support for dynamic sitting including LAQ for MMT, posterior lean into w/c Standing Balance Static Standing Balance Ability Poor Dynamic Standing Balance Ability Poor Standing Balance Comments Pt cannot stand upright without use of rollator or forearm assist from PT and he is very uncomfortable with standing without rollator. He has bounce-type response through legs with standing up, ataxic movement and inability to support his weight through his legs. Mod A to stand without AD and CGA for standing with rollator Balance Tests Other Other Balance Tests Performed Unable to tolerate any balance testing Thomas Fall Scale Copyright Permission PT-OP-G Mobility & Gait Start: 09/25/20 08:01 Freq: Status: Active Protocol: Document 10/06/20 13:46 MB (Rec: 10/06/20 16:01 MB [id number]) OP Mobility Evaluation Transfers Sit to Stand Cues to lock w/c and to push up from the w/c. Pte tends to stand up using rollator that is unlocked and then unsafely back in w/c, not stepping back with rollator and not square to seat. CGA and cues Wheelchair Management Assessment Details Pt requires assistance to manage wheelchair as he is weak through arms to push it-- max A to dependent OP Gait Assessment Gait Gait Assistance Required: Contact Guard Assist,1 Person Assist Distance (Feet) 40 Able to Maintain Weight Bearing Status Yes During Gait Assistive Devices Assistive Device Gait Belt,4 Wheeled Walker Orthotic/Prosthetic Devices or Brace: No Gait Deviations General Gait Pattern Ataxic,Decreased Stride Length ,Decreased Feet Clearance, Flexed Trunk,Step-to Gait Factors Limiting Gait Function Factors Limiting Gait Function Abnormal Tonal Influences, Decreased Activity Tolerance, Decreased Strength,Difficulty Following Directions, Incoordination,Poor Balance, Poor Safety Awareness Comments Gait Comments Pt's gait is ataxic and appears to have a tonal/clonus type bounce through his hips and knees that appears to be central in nature--trouble with legs accepting weight when he gets to his feet Stair Climbing Evaluation Comments Stair Climbing Comments Unable to do steps PT-OP-H Neuro Start: 10/06/20 15:41 Freq: Status: Active Protocol: Document 10/06/20 13:46 MB (Rec: 10/06/20 16:01 MB [id number]) Sensation Evaluation Gross Sensation Gross Sensation WNL Comments Summary Comments Pt presents with reduced proprioception left great toe. Right great toe is intact. He reports occ pain through his inner B thighs and unsure if this is sensation description. Coordination Evaluation Upper Extremity Tests Left Pronation/Supination Test Severe Impairment Right Pronation/Supination Test Minimal Impairment Lower Extremity Tests Left Foot Tapping Test Moderate Impairment Right Foot Tapping Test Minimal Impairment Comments Coordination Comments For foot tapping, pt tapping over opposite foot to the floor PT-OP-K Range of Motion Start: 09/25/20 08:01 Freq: Status: Active Protocol: Document 10/06/20 13:46 MB (Rec: 10/06/20 16:01 MB [id number]) TMJ Range of Motion Comments Comments Smile is equal and normal B Shoulder Goniometric Range of Motion Shoulder Bilateral Shoulder ROM WFL Yes Testing Position Sitting Comments Shoulder flexion in sitting assessed Knee Goniometric Range of Motion Knee Bilateral Knee ROM WFL Yes Patient Position Sitting Comments Extension is normal in sitting , movement is dysmetric, ataxic B Ankle and Foot Goniometric Range of Motion Ankle and Foot ROM Limitations Comments Limited B DF and PF, no clonus detected with rapid passive DF PT-OP-M Strength Start: 09/25/20 08:01 Freq: Status: Active Protocol: Document 10/06/20 13:46 MB (Rec: 10/06/20 16:01 MB [id number]) Shoulder Strength Shoulder Manual Muscle Testing Left Flexion 3+ Fair+ Right Flexion 4 Good Knee Strength Knee Manual Muscle Testing Left Extension (L3) 3+ Fair+ Right Extension (L3) 4 Good Ankle/Foot Strength Ankle and Foot Manual Muscle Testing Bilateral Comments Pt does not follow commands well for ankle MMT or great toe MMT, weaker on the left PT-OP-Q Treatments Start: 09/25/20 08:01 Freq: Status: Active Protocol: Document 10/20/20 12:20 SP (Rec: 10/20/20 13:46 SP [id number]) Cardio Equipment Recumbent Bicycle Duration (Minutes) 6 Resistance 8 Seat Position 7 Other 6' 99-100% on RA, HR 110 113bpm Therapeutic Activity Therapeutic Activity Sit to stand transfers Comments Good safety locking 4WW carryover, Multiple reps facing outside //bar from 4WW seat, then sit<> stand from raised table 22 (assimulated bed/ workstation set up) Cues for hand placement on 4WW/ table push up reach back and was able to progress to hands on lap/holding front coat with cuing scoot front, feet back under him then hip hinge forward, noted decrease posterior LE support after multiple reps. Pt had good recall to mechanics and pt and were suprised how easy it is to get up, was using to much of UE to help get up and doing to fast for reps, better and more stable today's strategies. Gait Training Gait Activity Gait with walker Device Used 4WW Level of Assistance SBA Surface level Distance/Duration 20 ', 60', 40' Treatment Focus posture, body close to 4WW, posture Comments Gait across gym and he presents with ataxic/bouncing- type gait with trouble with weight acceptance on legs when the spinal cord is loaded, forward posture Moderate BUE WB on 4WW, little improvement post sit<> stand hip hinge activity w/ decreased UE support mechanics required. Educated awareness of quad/ glut facilitation during stance phase while other LE swing phase to heel strike. PT-OP-T Assessment and Plan Start: 09/25/20 08:01 Freq: Status: Active Protocol: Document 10/20/20 12:20 SP (Rec: 10/20/20 13:46 SP [id number]) Physical Therapy Assessment Goals 3 Custodial Goal (LTG) Pt will perform HEP with I including safe transfers, pre- gait and strengthening exercises to improve I and balance by 12/08/20. 10/20/20: HEP sit<> stand from 4WW/raised table 22 UE as needed for safety/hip hinge strategies. LTG Duration 8 weeks 2 Custodial Goal (LTG) Pt will perform WNLs on Tinetti balance test to decrease fall risk by 12/08/20. LTG Duration 8 weeks 1 Budget Engineer Goal (LTG) Pt will perform sit to stand transfers with I and proper hand positioning and distance from chair and AD to decrease fall risk with transfers by 05/21. LTG Duration 8 weeks Assessment Summary Assessment Pt improved with hip hinge sit<>stands decreased UE support required but surfaces in front there for support as needed during tx. Pt improved in posture and decreased UE WB on 4WW end of tx but only walked 40 ft last distance due to LE tiring from time spent sit<>stands set ups. Physical Therapy Plan Frequency and Duration Frequency of Treatment 2x/Week Duration of Treatment 8 weeks Plan of Care Start Date 10/06/20 Plan of Care End Date 12/08/20 Therapeutic Interventions Therapeutic Interventions Balance Training,Canalithic Repositioning,Coordination Training,Gait Training,Home Exercise Program,Manual Therapy,Neuromuscular Re- education,Patient/Caregiver Education,Self-Care/Home Management,Soft Tissue Mobilization,Taping, Therapeutic Activities, Therapeutic Exercises, Vestibular Rehabilitation, Wheelchair Management Modalities Cold Pack/Ice Massage,Hot Packs Other Referrals/Consults Referrals/Consults Recommended Return to Dr. Mayberry for possible spine and brain diagnostics and neurology consult 10/21/20. Next Visit Focus/Plan Next Note Type Treatment Note Next Visit Plan Assess response to recombent bike, gait, sit<>stands during last tx. Next tx: reassess mechanics sit to stands decr UE support/ hip hinge, consider leg press shuttle, further gait and balance training in // bars, consider 6MWT when ready.
--- NOTE | 2020-10-27 12:21 | PT-OP ANOTE ---
Pt cancelled today's appt due to intestinal issues. No more appts scheduled. Sent message to schedulers to call and schedule more appts 2x/wk x4 weeks.
--- NOTE | 2020-11-11 09:38 | PT.OPDS ---
Current Diagnoses Unsteadiness on feet (10/20/20) Weakness (10/20/20) Visit Care Team Role Provider Type Hany Mayberry DO Attending Provider Physician Family Provider Primary Care Provider Referring Provider Specialty: Family Practice Address: [address] [place] [address], [facility] Email: [email or web address] Visit Number Visit Number 4 Discharge Summary PT-OP-B Current Condition Start: 09/25/20 08:01 Freq: Status: Active Protocol: Document 10/06/20 13:46 MB (Rec: 10/06/20 14:05 MB [id number]) Current Condition History of Current Condition Onset Date 10 years Current Complaints Leg weakness History of Current Condition Pt reports that he was on statins for 5 years and his legs got weak. His doctor told him that he could get off of them and his weakness stayed the same. 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 Pt fell 6 months ago over a mat in the bathroom. He could not get up. He reports he bruised his left ribs. Pt has two houses. He has one in [place]. 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 Pt has a life line, uses a rollator, walk-in bath, raised commode. Pt has been using the walker about 5 years . PMH: falls, left sided rib pain 4/10, medial thigh pain, smoking, arthritis, occ dizziness with sharp turns when walking and no dizziness in bed. Pt reports that he is sedentary in general. Treatment Goals Patient/Caregiver Goals To be able to walk again without a wheelchair or walker PT-OP-C Subjective Start: 09/25/20 08:01 Freq: Status: Active Protocol: Document 10/20/20 12:20 SP (Rec: 10/20/20 13:46 SP [id number]) OP-PT Subjective Patient Comments Patient Comments Pt and Glo state that they have appointment with Dr. Mayberry on 10/21/20. Pt stated he is hoping to find reasons for decreased balance on L side. PT-OP-D Balance Start: 09/25/20 08:01 Freq: Status: Active Protocol: Document 10/06/20 13:46 MB (Rec: 10/06/20 16:01 MB [id number]) OP-PT Balance Assessment Sitting Balance Static Sitting Balance Ability Fair Dynamic Sitting Balance Ability Fair Sitting Balance Comments UE support for dynamic sitting including LAQ for MMT, posterior lean into w/c Standing Balance Static Standing Balance Ability Poor Dynamic Standing Balance Ability Poor Standing Balance Comments Pt cannot stand upright without use of rollator or forearm assist from PT and he is very uncomfortable with standing without rollator. He has bounce-type response through legs with standing up, ataxic movement and inability to support his weight through his legs. Mod A to stand without AD and CGA for standing with rollator Balance Tests Other Other Balance Tests Performed Unable to tolerate any balance testing Thomas Fall Scale Copyright Permission PT-OP-G Mobility & Gait Start: 09/25/20 08:01 Freq: Status: Active Protocol: Document 10/06/20 13:46 MB (Rec: 10/06/20 16:01 MB [id number]) OP Mobility Evaluation Transfers Sit to Stand Cues to lock w/c and to push up from the w/c. Pte tends to stand up using rollator that is unlocked and then unsafely back in w/c, not stepping back with rollator and not square to seat. CGA and cues Wheelchair Management Assessment Details Pt requires assistance to manage wheelchair as he is weak through arms to push it-- max A to dependent OP Gait Assessment Gait Gait Assistance Required: Contact Guard Assist,1 Person Assist Distance (Feet) 40 Able to Maintain Weight Bearing Status Yes During Gait Assistive Devices Assistive Device Gait Belt,4 Wheeled Walker Orthotic/Prosthetic Devices or Brace: No Gait Deviations General Gait Pattern Ataxic,Decreased Stride Length ,Decreased Feet Clearance, Flexed Trunk,Step-to Gait Factors Limiting Gait Function Factors Limiting Gait Function Abnormal Tonal Influences, Decreased Activity Tolerance, Decreased Strength,Difficulty Following Directions, Incoordination,Poor Balance, Poor Safety Awareness Comments Gait Comments Pt's gait is ataxic and appears to have a tonal/clonus type bounce through his hips and knees that appears to be central in nature--trouble with legs accepting weight when he gets to his feet Stair Climbing Evaluation Comments Stair Climbing Comments Unable to do steps PT-OP-H Neuro Start: 10/06/20 15:41 Freq: Status: Active Protocol: Document 10/06/20 13:46 MB (Rec: 10/06/20 16:01 MB [id number]) Sensation Evaluation Gross Sensation Gross Sensation WNL Comments Summary Comments Pt presents with reduced proprioception left great toe. Right great toe is intact. He reports occ pain through his inner B thighs and unsure if this is sensation description. Coordination Evaluation Upper Extremity Tests Left Pronation/Supination Test Severe Impairment Right Pronation/Supination Test Minimal Impairment Lower Extremity Tests Left Foot Tapping Test Moderate Impairment Right Foot Tapping Test Minimal Impairment Comments Coordination Comments For foot tapping, pt tapping over opposite foot to the floor PT-OP-K Range of Motion Start: 09/25/20 08:01 Freq: Status: Active Protocol: Document 10/06/20 13:46 MB (Rec: 10/06/20 16:01 MB [id number]) TMJ Range of Motion Comments Comments Smile is equal and normal B Shoulder Goniometric Range of Motion Shoulder Bilateral Shoulder ROM WFL Yes Testing Position Sitting Comments Shoulder flexion in sitting assessed Knee Goniometric Range of Motion Knee Bilateral Knee ROM WFL Yes Patient Position Sitting Comments Extension is normal in sitting , movement is dysmetric, ataxic B Ankle and Foot Goniometric Range of Motion Ankle and Foot ROM Limitations Comments Limited B DF and PF, no clonus detected with rapid passive DF PT-OP-M Strength Start: 09/25/20 08:01 Freq: Status: Active Protocol: Document 10/06/20 13:46 MB (Rec: 10/06/20 16:01 MB [id number]) Shoulder Strength Shoulder Manual Muscle Testing Left Flexion 3+ Fair+ Right Flexion 4 Good Knee Strength Knee Manual Muscle Testing Left Extension (L3) 3+ Fair+ Right Extension (L3) 4 Good Ankle/Foot Strength Ankle and Foot Manual Muscle Testing Bilateral Comments Pt does not follow commands well for ankle MMT or great toe MMT, weaker on the left PT-OP-T Assessment and Plan Start: 09/25/20 08:01 Freq: Status: Active Protocol: Document 11/11/20 09:34 MB (Rec: 11/11/20 09:37 MB [id number]) Physical Therapy Plan Discharge Physical Therapy Discharge Reasons No Longer Attending PT Discharge Comments Pt had cancelled appointments d/t head CT and pending possible neurological work-up. PT did review head CT results and Dr. Mayberry's note. If the head CT results do not correlate with pt's functional presentation of ataxia and weakness, recommend neurology consult and possible further diagnostics of his brain and cervical spine. Will d/c PT at this time and spoke with pt and asked him to ask provider for another PT referral once his medical presentation is fully worked-up.
== END 2020-11-11 11:34 | disposition home or self-care (01) ==
LOC: PHYS 12:15
PROVIDERS: Family Provider Family Medicine; PCP Family Medicine; Referring Provider Family Medicine; Visit Provider Family Medicine
DX: R26.81 Unsteadiness on feet (principal); R53.1 Weakness
CPT/HCPCS: 97110; 97116; 97162; 97530

== ENCOUNTER → 2020-11-05 12:51 | Outpatient (CLI) | payer MEDICARE, OTHER, SELFPAY ==
--- NOTE | 2020-11-05 12:54 | DI.CT.S_ITS ---
PROCEDURE: CT HEAD/BRAIN WO/W CON INDICATIONS: Persistent ataxia, balance disorder TECHNIQUE: 4.5 mm thick angled axial sections acquired from the foramen magnum to the vertex both before and after the administration of intravenous contrast, with coronal and sagittal reformats. For radiation dose reduction, the following was used: automated exposure control, adjustment of mA and/or kV according to patient size. COMPARISON: [facility], MR, MR ORBITS FACE NECK WO/W CON, 07/30/2020, 12:15. [facility], CT, HEAD WITHOUT CONTRAST, 01/07/2017, 12:35. FINDINGS: Image quality: Excellent. CSF spaces: Basal cisterns are patent. No extra-axial fluid collections. Ventricles are symmetric in size and shape. Brain: No midline shift. No intracranial bleeds or masses. No abnormal intracranial enhancement. There is cerebral volume loss for age. There is periventricular white matter chronic small vessel ischemic change. There is intracranial internal carotid artery atherosclerosis. Skull and face: Calvarium and visualized facial bones appear intact, without suspicious lesions. Sinuses: Visualized sinuses and mastoids are clear. IMPRESSION: No masses or abnormal enhancement can be seen. Note is made of age-appropriate brain parenchymal volume loss and chronic small vessel ischemic changes. Dictated by: Edgar Jessica M.D. on 11/05/2020 at 13:08 Approved by: Edgar Jessica M.D. on 11/05/2020 at 13:10
[2020-11-05 13:42] LABS: BUN Creatinine Ratio 12.7 (6-22); Blood Urea Nitrogen 13 mg/dL (9-20); Calcium 9.4 mg/dL (8.4-10.2); Carbon Dioxide 31 mmol/L (22-32); Chloride 100 mmol/L (98-107); Estimated Glomerular Filt Rate > 60.0 mL/min (>60); Glucose 79 mg/dL (80-110); HEMOLYSIS < 15 (0-50); Potassium 3.5 mmol/L (3.4-5.1); Sodium 135 mmol/L (137-145)
== END ==
PROVIDERS: Family Provider Family Medicine; PCP Family Medicine; Referring Provider Family Medicine; Visit Provider Family Medicine
DX: R26.81 Unsteadiness on feet (principal); E87.1 Hypo-osmolality and hyponatremia
CPT/HCPCS: 36415; 70470; 80048

== ENCOUNTER 2021-07-06 13:17 | Emergency (ER) | payer MEDICARE, OTHER, SELFPAY ==
[2021-07-06] VITALS (17 sets, daily range): BP systolic 146–178; BP diastolic 68–99; PULSE 72–94; RESP 18; TEMP 36.6; O2SAT 93–99; BMI 22.4
--- NOTE | 2021-07-06 16:24 | DI.RAD.S_ITS ---
PROCEDURE: XR FOOT LT MIN 3V INDICATIONS: ?Cellulitis, ?fx TECHNIQUE: Three views of the foot were acquired. COMPARISON: None. FINDINGS: Bones: No fractures or dislocations. Mild subcortical cystic changes and irregularity are present at the tibiotalar articulation. No suspicious bony lesions. Soft tissues: No tibiotalar joint effusion. Achilles tendon appears normal. IMPRESSION: 1. No visible fracture. 2. Mild ankle joint degenerative change. Dictated by: Raya Hannon M.D. on 07/06/2021 at 16:54 Approved by: Raya Hannon M.D. on 07/06/2021 at 16:56
--- NOTE | 2021-07-06 16:24 | ED_ITS ---
HPI - Skin/Abscess/Foreign Bdy <Jorge L Uribe PA-C - Last Filed: 07/06/21 20:57> General Chief complaint: Skin/Abscess/Foreign Body Stated complaint: Severe pain/swelling in left foot Time Seen by Provider: 07/06/21 14:58 Source: patient and family Mode of arrival: Wheelchair Limitations: no limitations History of Present Illness HPI narrative: 80-year-old male with past medical history BPH presents to the ED with 3 days of left foot pain. Patient states that the left foot is exquisitely painful with even the slightest touch. Patient endorses swelling, warmth, erythema around the site that appears to be spreading proximally above his ankle. Patient denies fever, chills, chest pain, shortness of breath, cough, nausea, vomiting, abdominal pain, dysuria, syncope. Patient endorses feeling weak. Patient states that the scratches on his foot and leg are from his cat scratching him. Denies discharge. Patient also states that he fell a few days ago, is unsure if he hurt his foot during the fall. Related Data Previous Rx's Medication Instructions Recorded Disabled parking permit #1 ea 12/27/17 diclofenac sodium 1 % topical gel 2 g TOPICAL QID #100 g 06/16/20 (Voltaren Arthritis Pain) tamsulosin 0.4 mg capsule (Flomax) 0.8 mg PO DAILY #180 cap 10/02/20 sildenafil (pulm.hypertension) 20 20 mg PO DAILY PRN #50 tab 12/16/20 mg tablet finasteride 5 mg tablet See Rx Instructions .ROUTE 06/19/21 .COMPLEX #30 tab sulfamethoxazole 800 1 tab PO BID #10 tab 07/06/21 mg-trimethoprim 160 mg tablet (Bactrim DS) oxazepam 15 mg capsule See Rx Instructions .ROUTE 07/08/21 .COMPLEX #90 cap Allergies Allergy/AdvReac Type Severity Reaction Status Date / Time codeine AdvReac Mild ABD Verified 07/06/21 13:26 PAIN/GI UPSET Review of Systems <Jorge L Uribe PA-C - Last Filed: 07/06/21 20:57> Review of Systems ROS Unobtainable: All systems reviewed & are unremarkable except as noted in HPI and below Constitutional Constitutional: Denies chills, Denies fatigue, Denies fever(s), Denies frequent falls, Denies lethargy and Reports weakness Eyes Eyes: Denies change in vision, Denies eye discharge, Denies irritation and Denies loss of vision ENT Ears, Nose, Mouth, and Throat: Denies change in voice, Denies dizziness, Denies neck pain, Denies sore throat and Denies throat swelling Cardiovascular Cardiovascular: Denies chest pain, Denies irregular heart rhythm, Denies lightheadedness, Denies palpitations, Denies dyspnea, Denies dyspnea on exertion and Denies orthopnea Respiratory Respiratory: Denies cough, Denies dyspnea, Denies dyspnea on exertion and Denies wheezing Gastrointestinal Gastrointestinal: Denies abdominal pain, Denies change in bowel habits, Denies diarrhea, Denies nausea and Denies vomiting Genitourinary Genitourinary: Denies hematuria, Denies flank pain, Denies urinary incontinence and Denies urinary urgency Musculoskeletal Musculoskeletal: Denies back pain, Denies muscle weakness, Denies neck pain, Denies numbness and Denies tingling Integumentary/Breasts Skin/Breast: Denies pruritus, Denies erythema, Denies rash and Denies wounds Comments: Left foot pain, redness, swelling Neurologic Neurologic: Denies behavioral changes, Denies confusion, Denies dizziness, Denies frequent falls, Denies loss of vision, Denies numbness, Denies tingling and Reports weakness Psychiatric Psychiatric: Denies anxiety, Denies behavioral changes, Denies confusion, Denies depression, Denies homicidal ideation and Denies suicidal ideation Endocrine Endocrine: Denies fatigue, Denies flushing and Denies palpitations Hematologic/Lymphatic Hematologic/Lymphatic: Denies easy bruising Allergic/Immunologic Allergic/Immunologic: Denies urticaria, Denies throat swelling and Denies wheezing Patient History <Jorge L Uribe PA-C - Last Filed: 07/06/21 20:57> Medical History BPH (benign prostatic hyperplasia) Erectile dysfunction Gait instability Hyponatremia Neck mass Toenail fungus Uses walker Well adult exam Surgical History Anesthesia History of cataract removal with insertion of prosthetic lens Social History Smoking Status: Current every day smoker Smoking Status: Current every day smoker alcohol intake frequency: 0-2 drinks per day Substance Use Type: does not use Exam <Jorge L Uribe PA-C - Last Filed: 07/06/21 20:57> Initial Vital Signs Initial Vital Signs: Vital Signs Temperature 97.9 F 07/06/21 13:26 Pulse Rate 79 07/06/21 13:26 Respiratory Rate 18 07/06/21 13:26 Blood Pressure 146/68 H 07/06/21 13:26 Pulse Oximetry 99 07/06/21 13:26 Const General: cooperative, healthy appearing and comfortable [facility] Head: normal to inspection Eyes General: appearance normal, both eyes and all related structures Neck Neck: normal visual inspection Chest Chest: normal inspection of the chest Resp Effort & Inspection: normal respiratory effort Auscultation: clear to auscultation bilaterally Cardio Rate: regular rate Rhythm: regular rhythm Skin Other: Several scratches visualized on left lower leg. One scratch on the lateral left foot is the most painful to palpation with erythema, warmth, swelling. Erythema spreading to above the left ankle. Neuro General: patient alert, patient awake and patient oriented x3 Extrem Left lower extremity: normal capillary refill and lower leg Details: erythema, tenderness, localized swelling, abrasion and warmth Psych Appearance: grossly normal <Lena Hart MD - Last Filed: 07/11/21 23:55> Initial Vital Signs Initial Vital Signs: Vital Signs Temperature 97.9 F 07/06/21 13:26 Pulse Rate 79 07/06/21 13:26 Respiratory Rate 18 07/06/21 13:26 Blood Pressure 146/68 H 07/06/21 13:26 Pulse Oximetry 99 07/06/21 13:26 Course <Jorge L Uribe PA-C - Last Filed: 07/06/21 20:57> Course Course Narrative: Labs within normal limits. X-rays negative for fracture/dislocation. Patient's symptoms consistent with cellulitis. Will cover with cephalexin, Bactrim, azithromycin to cover for staph, strep, Bartonella henselae, given patient had cat scratches. Discussed ED return precautions with patient, discharged home. Patient verbalized understanding. Marked borders of erythema with a surgical pen. Orders Ordered: Discontinued Medications Cephalexin HCl (Cephalexin 250 Mg Capsule) 500 mg PO NOW ONE Stop: 07/06/21 17:50 Last Admin: 07/06/21 18:05 Dose: 500 mg Documented by: THERON Azithromycin 500 mg/ Dextrose 250 mls @ 250 mls/hr IV NOW ONE Stop: 07/06/21 17:52 Last Infusion: 07/06/21 20:06 Dose: 0 mls/hr Documented by: Admin: 07/06/21 18:05 Dose: 250 mls/hr Documented by: THERON Ketorolac Tromethamine (Ketorolac 30 Mg/Ml Vial) 15 mg IV NOW ONE Stop: 07/06/21 16:27 Last Admin: 07/06/21 16:55 Dose: 15 mg Documented by: THERON Trimethoprim/Sulfamethoxazole (Trimeth/Sulfa 160/800 (Ds) Tablet) 1 tab PO NOW ONE Stop: 07/06/21 17:50 Last Admin: 07/06/21 18:05 Dose: 1 tab Documented by: THERON Vital Signs Vital signs: Vital Signs - 8 hr 07/06/21 13:26 07/06/21 14:23 07/06/21 14:30 Temperature 97.9 F Pulse Rate 79 75 72 Respiratory Rate 18 Blood Pressure 146/68 H 177/77 H 158/87 H Pulse Oximetry 99 99 97 07/06/21 15:00 07/06/21 15:30 07/06/21 16:00 Temperature Pulse Rate 77 77 80 Respiratory Rate Blood Pressure 154/71 H 157/71 H 169/95 H Pulse Oximetry 94 94 95 07/06/21 16:29 07/06/21 16:30 07/06/21 16:31 Temperature Pulse Rate 94 H 92 H Respiratory Rate Blood Pressure 164/99 H Pulse Oximetry 94 93 07/06/21 17:00 07/06/21 17:30 07/06/21 17:31 Temperature Pulse Rate 78 78 81 Respiratory Rate Blood Pressure 166/70 H 171/77 H Pulse Oximetry 96 96 96 07/06/21 18:00 07/06/21 18:30 07/06/21 19:00 Temperature Pulse Rate 79 80 81 Respiratory Rate Blood Pressure 178/81 H 172/78 H 163/81 H Pulse Oximetry 95 95 94 07/06/21 19:30 07/06/21 20:00 Temperature Pulse Rate 78 77 Respiratory Rate Blood Pressure 157/80 H 160/72 H Pulse Oximetry 94 93 <Lena L Laursen, MD - Last Filed: 07/11/21 23:55> Orders Ordered: Discontinued Medications Cephalexin HCl (Cephalexin 250 Mg Capsule) 500 mg PO NOW ONE Stop: 07/06/21 17:50 Last Admin: 07/06/21 18:05 Dose: 500 mg Documented by: THERON Azithromycin 500 mg/ Dextrose 250 mls @ 250 mls/hr IV NOW ONE Stop: 07/06/21 17:52 Last Infusion: 07/06/21 20:06 Dose: 0 mls/hr Documented by: Admin: 07/06/21 18:05 Dose: 250 mls/hr Documented by: THERON Ketorolac Tromethamine (Ketorolac 30 Mg/Ml Vial) 15 mg IV NOW ONE Stop: 07/06/21 16:27 Last Admin: 07/06/21 16:55 Dose: 15 mg Documented by: THERON Trimethoprim/Sulfamethoxazole (Trimeth/Sulfa 160/800 (Ds) Tablet) 1 tab PO NOW ONE Stop: 07/06/21 17:50 Last Admin: 07/06/21 18:05 Dose: 1 tab Documented by: THERON Vital Signs Vital signs: Vital Signs - 8 hr 07/06/21 13:26 07/06/21 14:23 07/06/21 14:30 Temperature 97.9 F Pulse Rate 79 75 72 Respiratory Rate 18 Blood Pressure 146/68 H 177/77 H 158/87 H Pulse Oximetry 99 99 97 07/06/21 15:00 07/06/21 15:30 07/06/21 16:00 Temperature Pulse Rate 77 77 80 Respiratory Rate Blood Pressure 154/71 H 157/71 H 169/95 H Pulse Oximetry 94 94 95 07/06/21 16:29 07/06/21 16:30 07/06/21 16:31 Temperature Pulse Rate 94 H 92 H Respiratory Rate Blood Pressure 164/99 H Pulse Oximetry 94 93 07/06/21 17:00 07/06/21 17:30 07/06/21 17:31 Temperature Pulse Rate 78 78 81 Respiratory Rate Blood Pressure 166/70 H 171/77 H Pulse Oximetry 96 96 96 07/06/21 18:00 07/06/21 18:30 07/06/21 19:00 Temperature Pulse Rate 79 80 81 Respiratory Rate Blood Pressure 178/81 H 172/78 H 163/81 H Pulse Oximetry 95 95 94 07/06/21 19:30 07/06/21 20:00 Temperature Pulse Rate 78 77 Respiratory Rate Blood Pressure 157/80 H 160/72 H Pulse Oximetry 94 93 MDM - Skin/Abscess/Foreign Bdy <Jorge L Uribe PA-C - Last Filed: 07/06/21 20:57> Lab Data Result diagrams: 07/06/21 16:50 07/06/21 16:50 Labs: Lab Results 07/06/21 07/06/21 07/06/21 Range/Units 16:50 16:50 16:50 WBC 8.2 (4.5-11.0) X10^3/uL RBC 3.89 L (4.5-5.9) X10^6/uL Hgb 12.0 L (13.5-17.5) g/dL Hct 34.1 L (41-53) % MCV 87.6 (80-100) fL MCH 30.9 (26-34) PG MCHC 35.3 (30-36) % RDW 13.4 (11.6-14.8) % Plt Count 222 (150-400) X10^3/uL Neut % (Auto) 70.6 (50-75) % Lymph % (Auto) 15.6 L (25-40) % Potter % (Auto) 10.2 (3-14) % Eos % (Auto) 2.8 (2-4) % Baso % (Auto) 0.8 (0-2) % Neut # (Auto) 5800 (4089-8522) /uL Lymph # (Auto) 1300 (7583-3127) /uL Potter # (Auto) 800 (0-900) /uL Eos # (Auto) 200 (0-450) /uL Baso # (Auto) 100 (0-100) /uL ESR (0-15) MM/HR Sodium 124 L (137-145) mmol/L Potassium 4.5 (3.4-5.1) mmol/L Chloride 92 L (98-107) mmol/L Carbon Dioxide 27 (22-32) mmol/L BUN 13 (9-20) mg/dL Creatinine 1.18 (0.66-1.25) mg/dL Estimated GFR 59.4 L (>60) mL/min BUN/Creatinine Ratio 11.0 (6-22) Glucose 104 (80-110) mg/dL Lactate 0.8 (0.7-2.1) mmol/L Calcium 9.4 (8.4-10.2) mg/dL Total Bilirubin 0.5 (0.2-1.3) mg/dL AST 41 (17-59) IU/L ALT 18 (<50) IU/L Alkaline Phosphatase 94 (38-126) U/L C-Reactive Protein (<1.0) mg/dL Total Protein 7.1 (6.3-8.2) g/dL Albumin 4.0 (3.5-5.0) g/dL Globulin 3.1 (1.7-4.1) g/dL Albumin/Globulin Ratio 1.3 (1.0-2.8) 07/06/21 07/06/21 Range/Units 16:50 16:50 WBC (4.5-11.0) X10^3/uL RBC (4.5-5.9) X10^6/uL Hgb (13.5-17.5) g/dL Hct (41-53) % MCV (80-100) fL MCH (26-34) PG MCHC (30-36) % RDW (11.6-14.8) % Plt Count (150-400) X10^3/uL Neut % (Auto) (50-75) % Lymph % (Auto) (25-40) % Potter % (Auto) (3-14) % Eos % (Auto) (2-4) % Baso % (Auto) (0-2) % Neut # (Auto) (9702-7741) /uL Lymph # (Auto) (8121-6448) /uL Potter # (Auto) (0-900) /uL Eos # (Auto) (0-450) /uL Baso # (Auto) (0-100) /uL ESR 40 H (0-15) MM/HR Sodium (137-145) mmol/L Potassium (3.4-5.1) mmol/L Chloride (98-107) mmol/L Carbon Dioxide (22-32) mmol/L BUN (9-20) mg/dL Creatinine (0.66-1.25) mg/dL Estimated GFR (>60) mL/min BUN/Creatinine Ratio (6-22) Glucose (80-110) mg/dL Lactate (0.7-2.1) mmol/L Calcium (8.4-10.2) mg/dL Total Bilirubin (0.2-1.3) mg/dL AST (17-59) IU/L ALT (<50) IU/L Alkaline Phosphatase (38-126) U/L C-Reactive Protein 5.2 H (<1.0) mg/dL Total Protein (6.3-8.2) g/dL Albumin (3.5-5.0) g/dL Globulin (1.7-4.1) g/dL Albumin/Globulin Ratio (1.0-2.8) MDM Narrative Medical decision making narrative: 80-year-old male with past medical history BPH presents to the ED with 3 days of left foot pain. Patient states that the left foot is exquisitely painful with e perry the slightest touch. Concern for cellulitis versus fracture/dislocation versus osteomyelitis versus sepsis versus bacteremia. Will order labs, lactate, ESR, CRP, x-rays. Will treat the pain with Toradol. Will reassess. <Lena Hart MD - Last Filed: 07/11/21 23:55> Lab Data Labs: Lab Results 07/06/21 07/06/21 07/06/21 Range/Units 16:50 16:50 16:50 WBC 8.2 (4.5-11.0) X10^3/uL RBC 3.89 L (4.5-5.9) X10^6/uL Hgb 12.0 L (13.5-17.5) g/dL Hct 34.1 L (41-53) % MCV 87.6 (80-100) fL MCH 30.9 (26-34) PG MCHC 35.3 (30-36) % RDW 13.4 (11.6-14.8) % Plt Count 222 (150-400) X10^3/uL Neut % (Auto) 70.6 (50-75) % Lymph % (Auto) 15.6 L (25-40) % Potter % (Auto) 10.2 (3-14) % Eos % (Auto) 2.8 (2-4) % Baso % (Auto) 0.8 (0-2) % Neut # (Auto) 5800 (0163-4638) /uL Lymph # (Auto) 1300 (2137-5556) /uL Potter # (Auto) 800 (0-900) /uL Eos # (Auto) 200 (0-450) /uL Baso # (Auto) 100 (0-100) /uL ESR (0-15) MM/HR Sodium 124 L (137-145) mmol/L Potassium 4.5 (3.4-5.1) mmol/L Chloride 92 L (98-107) mmol/L Carbon Dioxide 27 (22-32) mmol/L BUN 13 (9-20) mg/dL Creatinine 1.18 (0.66-1.25) mg/dL Estimated GFR 59.4 L (>60) mL/min BUN/Creatinine Ratio 11.0 (6-22) Glucose 104 (80-110) mg/dL Lactate 0.8 (0.7-2.1) mmol/L Calcium 9.4 (8.4-10.2) mg/dL Total Bilirubin 0.5 (0.2-1.3) mg/dL AST 41 (17-59) IU/L ALT 18 (<50) IU/L Alkaline Phosphatase 94 (38-126) U/L C-Reactive Protein (<1.0) mg/dL Total Protein 7.1 (6.3-8.2) g/dL Albumin 4.0 (3.5-5.0) g/dL Globulin 3.1 (1.7-4.1) g/dL Albumin/Globulin Ratio 1.3 (1.0-2.8) 07/06/21 07/06/21 Range/Units 16:50 16:50 WBC (4.5-11.0) X10^3/uL RBC (4.5-5.9) X10^6/uL Hgb (13.5-17.5) g/dL Hct (41-53) % MCV (80-100) fL MCH (26-34) PG MCHC (30-36) % RDW (11.6-14.8) % Plt Count (150-400) X10^3/uL Neut % (Auto) (50-75) % Lymph % (Auto) (25-40) % Potter % (Auto) (3-14) % Eos % (Auto) (2-4) % Baso % (Auto) (0-2) % Neut # (Auto) (6943-2158) /uL Lymph # (Auto) (8102-2019) /uL Potter # (Auto) (0-900) /uL Eos # (Auto) (0-450) /uL Baso # (Auto) (0-100) /uL ESR 40 H (0-15) MM/HR Sodium (137-145) mmol/L Potassium (3.4-5.1) mmol/L Chloride (98-107) mmol/L Carbon Dioxide (22-32) mmol/L BUN (9-20) mg/dL Creatinine (0.66-1.25) mg/dL Estimated GFR (>60) mL/min BUN/Creatinine Ratio (6-22) Glucose (80-110) mg/dL Lactate (0.7-2.1) mmol/L Calcium (8.4-10.2) mg/dL Total Bilirubin (0.2-1.3) mg/dL AST (17-59) IU/L ALT (<50) IU/L Alkaline Phosphatase (38-126) U/L C-Reactive Protein 5.2 H (<1.0) mg/dL Total Protein (6.3-8.2) g/dL Albumin (3.5-5.0) g/dL Globulin (1.7-4.1) g/dL Albumin/Globulin Ratio (1.0-2.8) Discharge Plan Departure Patient Disposition: Home Clinical Impression: Cellulitis Instructions: DI for Cellulitis -- Adult Prescriptions: New sulfamethoxazole-trimethoprim [Bactrim DS] 800-160 mg tablet 1 tab PO BID Qty: 10 0RF No Action (DME) Disabled parking permit Qty: 1 0RF Dose Instruction: As directed Rx Instructions: Pt unable to walk more than 200 feet without stopping. tamsulosin [Flomax] 0.4 mg capsule 0.8 mg PO DAILY Qty: 180 3RF finasteride 5 mg tablet See Rx Instructions .ROUTE .COMPLEX Qty: 30 2RF Dose Instruction: TAKE 1 TABLET BY MOUTH BEDTIME Rx Instructions: TAKE 1 TABLET BY MOUTH BEDTIME oxazepam 15 mg capsule See Rx Instructions .ROUTE .COMPLEX Qty: 90 1RF Dose Instruction: TAKE 1 CAPSULE BY MOUTH BEDTIME NEEDED FOR SLEEP Rx Instructions: TAKE 1 CAPSULE BY MOUTH BEDTIME NEEDED FOR SLEEP diclofenac sodium [Voltaren Arthritis Pain] 1 % gel 2 g topical QID Qty: 100 1RF Rx Instructions: apply to single elbow, wrist or hand; for hand includes palm/fingers/back of hand sildenafil (pulm.hypertension) 20 mg tablet 20 mg PO DAILY PRN (Reason: sexual activity) Qty: 50 5RF Rx Instructions: Take 3-5 p.o. 45 minutes prior to sexual activity. Maximum dose per day Referrals: Hany Mayberry DO [Primary Care Provider] - <Lena Hart MD - Last Filed: 07/11/21 23:55> Cosign ED Attending Cosignature Attestation: I was immediately available in the department for consultation throughout this patient's visit. I agree with documentation as above. Lena Hart MD
--- NOTE | 2021-07-06 16:25 | DI.RAD.S_ITS ---
PROCEDURE: XR TIBIA FIBULA LT 2V INDICATIONS: ?cellulitis, ?fx TECHNIQUE: 2 views of the tibia and fibula were acquired. COMPARISON: None. FINDINGS: Bones: No fractures or dislocations. No suspicious bony lesions. Soft tissues: No suspicious soft tissue calcifications or masses. IMPRESSION: No visualized cellulitis. No visualized acute fracture or dislocation. However, if clinical concern and/or pain persist, short interval imaging followup in 7-10 days is recommended, as occult injury cannot be definitively excluded. Dictated by: Marilyn Rodrigez M.D. on 07/06/2021 at 16:51 Approved by: Marilyn Rodrigez M.D. on 07/06/2021 at 16:52
--- NOTE | 2021-07-06 16:25 | DI.RAD.S_ITS ---
PROCEDURE: XR ANKLE LT MIN 3V INDICATIONS: ?cellulitis, ?fx TECHNIQUE: 3 views of the ankle were acquired. COMPARISON: None. FINDINGS: Bones: Faint lucency of the medial malleolus, which may reflect osteopenia versus osteomyelitis. The remaining visualized osseous structures appear maintained. Ankle mortise is normally aligned. No suspicious bony lesions. Soft tissues: No tibiotalar joint effusion. IMPRESSION: 1. Faint lucency in the medial malleolus, which may reflect osteopenia versus osteomyelitis. Dictated by: Amilcar Tay M.D. on 07/06/2021 at 16:46 Approved by: Amilcar Tay M.D. on 07/06/2021 at 16:51
[2021-07-06] MEDS: KETOROLAC 30 MG/ML VIAL 15 MG IV (16:55)
[2021-07-06 16:59] LABS: Add Manual Diff / Slide Review NO; Basophils Absolute Auto 100 /uL (0-100); Basophils Percent Auto 0.8 % (0-2); Eosinophils Absolute Auto 200 /uL (0-450); Eosinophils Percent Auto 2.8 % (2-4); Hematocrit 34.1 % (41-53); Lymphocytes Absolute Auto 1300 /uL (1100-4500); Lymphocytes Percent Auto 15.6 % (25-40); Mean Corpuscular HGB Conc 35.3 % (30-36); Mean Corpuscular Hemoglobin 30.9 PG (26-34); Mean Corpuscular Volume 87.6 fL (80-100); Monocytes Absolute Auto 800 /uL (0-900); Monocytes Percent Auto 10.2 % (3-14); Neutrophils Absolute Auto 5800 /uL (1500-7000); Neutrophils Percent Auto 70.6 % (50-75); Platelet Count 222 X10^3/uL (150-400); Red Blood Cell Count 3.89 X10^6/uL (4.5-5.9); Red Cell Distribution Width 13.4 % (11.6-14.8); White Blood Cell Count 8.2 X10^3/uL (4.5-11.0)
[2021-07-06 17:27] LABS: Lactate (Lactic Acid) 0.8 mmol/L (0.7-2.1)
[2021-07-06 17:28] LABS: Alanine Aminotransferase 18 IU/L (<50); Albumin Globulin Ratio 1.3 (1.0-2.8); Alkaline Phosphatase 94 U/L (38-126); Aspartate Aminotransferase 41 IU/L (17-59); Bilirubin Total 0.5 mg/dL (0.2-1.3); Blood Urea Nitrogen 13 mg/dL (9-20); Calcium 9.4 mg/dL (8.4-10.2); Carbon Dioxide 27 mmol/L (22-32); Chloride 92 mmol/L (98-107); Estimated Glomerular Filt Rate 59.4 mL/min (>60); Globulin 3.1 g/dL (1.7-4.1); Glucose 104 mg/dL (80-110); HEMOLYSIS < 15 (0-50); Potassium 4.5 mmol/L (3.4-5.1); Sodium 124 mmol/L (137-145); Total Protein 7.1 g/dL (6.3-8.2)
[2021-07-06 17:33] LABS: C-Reactive Protein Quant 5.2 mg/dL (<1.0)
[2021-07-06 18:01] LABS: Erythrocyte Sedimentation Rate 40 MM/HR (0-15)
[2021-07-06] MEDS: cephALEXin 250 MG CAPSULE 500 MG PO (18:05)
[2021-07-06] MEDS: TRIMETH/SULFA 160/800 (DS) TABLET 1 TAB PO (18:05)
[2021-07-06] MEDS: AZITHROMYCIN 500 MG in DEXTROSE 5% IN WATER 250 ML IV (18:05)
== END 2021-07-06 20:12 | disposition home or self-care (01) ==
PROVIDERS: Emergency Provider Student in an Organized Health Care Education/Training Program; Family Provider Family Medicine; PCP Family Medicine
DX: L03.116 Cellulitis of left lower limb (principal)
CPT/HCPCS: 36415; 73590; 73610; 73630; 80053; 83605; 85025; 85651; 86140; 96365; 96366; 96375; 99284; J1885

== ENCOUNTER → 2021-10-12 14:24 | Outpatient (CLI) | payer MEDICARE, OTHER, SELFPAY ==
[2021-10-12 14:52] LABS: Add Manual Diff / Slide Review NO; Basophils Absolute Auto 100 /uL (0-100); Basophils Percent Auto 1.1 % (0-2); Eosinophils Absolute Auto 200 /uL (0-450); Eosinophils Percent Auto 3.4 % (2-4); Hemoglobin 11.7 g/dL (13.5-17.5); Lymphocytes Absolute Auto 1300 /uL (1100-4500); Lymphocytes Percent Auto 18.9 % (25-40); Mean Corpuscular HGB Conc 35.3 % (30-36); Mean Corpuscular Hemoglobin 30.6 PG (26-34); Mean Corpuscular Volume 86.5 fL (80-100); Monocytes Absolute Auto 700 /uL (0-900); Monocytes Percent Auto 9.9 % (3-14); Neutrophils Absolute Auto 4400 /uL (1500-7000); Neutrophils Percent Auto 66.7 % (50-75); Platelet Count 231 X10^3/uL (150-400); Red Blood Cell Count 3.82 X10^6/uL (4.5-5.9); Red Cell Distribution Width 13.7 % (11.6-14.8); White Blood Cell Count 6.7 X10^3/uL (4.5-11.0)
[2021-10-12 15:10] LABS: Alanine Aminotransferase 14 IU/L (<50); Albumin 3.8 g/dL (3.5-5.0); Albumin Globulin Ratio 1.3 (1.0-2.8); Alkaline Phosphatase 100 U/L (38-126); Aspartate Aminotransferase 31 IU/L (17-59); BUN Creatinine Ratio 16.7 (6-22); Bilirubin Total 0.3 mg/dL (0.2-1.3); Blood Urea Nitrogen 15 mg/dL (9-20); Calcium 8.9 mg/dL (8.4-10.2); Carbon Dioxide 27 mmol/L (22-32); Chloride 92 mmol/L (98-107); Estimated Glomerular Filt Rate > 60.0 mL/min (>60); Glucose 111 mg/dL (80-110); HEMOLYSIS < 15 (0-50); Potassium 4.6 mmol/L (3.4-5.1); Sodium 123 mmol/L (137-145); Total Protein 6.8 g/dL (6.3-8.2)
== END ==
PROVIDERS: Family Provider Family Medicine; PCP Family Medicine; Referring Provider Family Medicine; Visit Provider Family Medicine
DX: E87.1 Hypo-osmolality and hyponatremia (principal); D64.9 Anemia, unspecified
CPT/HCPCS: 36415; 80053; 85025

== ENCOUNTER 2021-12-12 06:12 | Inpatient (IN) | payer MEDICARE, OTHER, SELFPAY ==
[2021-12-12] VITALS (25 sets, daily range): BP systolic 127–182; BP diastolic 60–79; PULSE 75–98; RESP 13–22; TEMP 36.8–37.1; O2SAT 92–98; BMI 19.6; BMI 19.3
--- NOTE | 2021-12-12 06:19 | ED.AMS ---
HPI - Altered Mental Status <Xander Johnston DO - Last Filed: 12/12/21 06:48> General Chief Complaint: Psychiatric Symptoms Stated Complaint: crawling out of his skin Time Seen by Provider: 12/12/21 06:17 History of Present Illness HPI narrative: 81-year-old male daily smoker with history of hyponatremia, left foot pain, erectile dysfunction and recent hospitalization for what sounds like revascularization of peripheral vascular disease in his left leg to have been contributing to poorly healing wounds. He was discharged from [facility] just a few days ago with PICC line in place and IV antibiotics and states that ever since he has been home he feels like his brain is racing and he cannot turn it off. He denies specific symptoms and is a very poor historian at baseline. He states he has become tired and fatigued but denies any chest pain or shortness of breath. He has no fever, chills, nausea or vomiting. Other than the antibiotic he was discharged on he denies any new medications and states he has not had any medications stopped. Related Data Previous Rx's Medication Instructions Recorded Disabled parking permit #1 ea 12/27/17 diclofenac sodium 1 % topical gel 2 g TOPICAL QID #100 g 06/16/20 (Voltaren Arthritis Pain) tamsulosin 0.4 mg capsule (Flomax) 0.8 mg PO DAILY #180 cap 10/02/20 finasteride 5 mg tablet See Rx Instructions .ROUTE 06/19/21 .COMPLEX #30 tab sulfamethoxazole 800 1 tab PO BID #10 tab 07/06/21 mg-trimethoprim 160 mg tablet (Bactrim DS) oxazepam 15 mg capsule See Rx Instructions .ROUTE 07/08/21 .COMPLEX #90 cap terbinafine HCl 250 mg tablet 250 mg PO DAILY #90 tab 08/05/21 sildenafil (pulm.hypertension) 20 20 mg PO DAILY PRN #50 tab 08/06/21 mg tablet cephalexin 500 mg capsule 500 mg PO TID #30 cap 10/05/21 gabapentin 100 mg capsule 100 mg PO BEDTIME PRN #30 cap 10/26/21 Allergies Allergy/AdvReac Type Severity Reaction Status Date / Time codeine AdvReac Mild ABD Verified 10/05/21 15:06 PAIN/GI UPSET Review of Systems <Xander Johnston DO - Last Filed: 12/12/21 06:48> Review of Systems Narrative: GENERAL: Denies chills, fatigue, malaise, fever, sweats. HEENT: Denies sinus pain, ear pain, sore throat, difficulty swallowing, dizziness. RESPIRATORY: Denies dyspnea, cough, wheezing, hemoptysis, sputum. CARDIOVASCULAR: Denies chest pain, palpitations, orthopnea, edema, GASTROINTESTINAL: Denies nausea, vomiting, abdominal pain, diarrhea, constipation, melena. : Denies dysuria, frequency, incontinence, hematuria, urinary retention. MUSCULOSKELETAL: denies weakness, joint pain, or bony pain SKIN: Denies rash, skin lesions, or other NEUROLOGIC: See HPI PSYCHIATRIC: No concerning psychosocial issues. 12 point review of systems is negative except for those stated above Patient History <Xander Johnston DO - Last Filed: 12/12/21 06:48> Medical History BPH (benign prostatic hyperplasia) Erectile dysfunction Gait instability Hyponatremia Left foot pain Neck mass Toenail fungus Uses walker Well adult exam Surgical History Anesthesia History of cataract removal with insertion of prosthetic lens Social History household members: spouse Smoking Status: Current every day smoker Smoking Status: Current every day smoker alcohol intake frequency: 0-2 drinks per day Substance Use Type: does not use Exam <Xander Johnston DO - Last Filed: 12/12/21 06:48> Narrative Exam Narrative: GENERAL: [81] year old patient appears stated age. Well-developed patient, in mild distress. GCS 14 (confused) HEAD: Atraumatic. Normocephalic. EYES: Pupils equal round and reactive. Extraocular motions intact. No scleral icterus. No injection or drainage. ENT: Dry mucous membranes Nose without bleeding, purulent drainage. Throat without erythema, tonsillar hypertrophy or exudate. Airway patent. NECK: Trachea midline. Non tender CARDIOVASCULAR: Regular rate and rhythm without murmurs, gallops, or rubs. RESPIRATORY: Clear to auscultation. Breath sounds equal bilaterally. No wheezes, rales, or rhonchi. GASTROINTESTINAL: Abdomen soft, non-tender, nondistended. EXTREMITIES: No edema or joint tenderness. BACK: Nontender without deformity or crepitance. No flank tenderness. NEURO: AOx3. SKIN: Poor skin turgor. No rash or erythema of visible areas Initial Vital Signs Initial Vital Signs: Vital Signs Temperature 98.2 F 12/12/21 06:25 Pulse Rate 81 12/12/21 06:25 Respiratory Rate 12/12/21 06:25 Blood Pressure 182/74 H 12/12/21 06:25 Pulse Oximetry 97 12/12/21 06:25 <Javid Bazan DO - Last Filed: 12/12/21 16:56> Initial Vital Signs Initial Vital Signs: Vital Signs Temperature 98.2 F 12/12/21 06:25 Pulse Rate 81 12/12/21 06:25 Respiratory Rate 12/12/21 06:25 Blood Pressure 182/74 H 12/12/21 06:25 Pulse Oximetry 97 12/12/21 06:25 <Javid Bazan DO - Last Filed: 12/12/21 16:56> GCS Abril coma scale eye opening: Spontaneous Abril coma scale verbal response: Confused Abril coma scale motor response: Obey commands [place] coma scale total score: 14 Course <Xander Johnston DO - Last Filed: 12/12/21 06:48> Orders Ordered: ED Orders 12/12/21 08:04 Urinalysis and Microscopic Stat Urine Drug Screen, Rapid Stat 12/12/21 10:18 CT head/brain wo con Stat 12/12/21 10:45 Ammonia (NH3) Stat Acetaminophen (Acetaminophen 325 Mg Tablet) 650 mg PO Q6HR PRN PRN Reason: pain, fever Heparin Sodium (Porcine) (Heparin 5,000 Unit/Ml Vial) 5,000 unit SUBCUT BID KACIE Naloxone HCl (Naloxone 0.4 Mg/Ml Vial) 0.2 mg IV Q2MIN PRN PRN Reason: Opiate Reversal Ondansetron HCl (Ondansetron 4 Mg/2 Ml Inj) 4 mg IV Q8HR PRN PRN Reason: Nausea And Vomiting Tamsulosin HCl (Tamsulosin 0.4 Mg Capsule) 0.8 mg PO DAILY KACIE Discontinued Medications Ammonia (Aromatic Spirit) (Ammonia Inhalant 1 Each) 1 each INH NOW ONE Stop: 12/12/21 10:19 Last Admin: 12/12/21 10:44 Dose: Not Given Documented by: KBROTEM Lorazepam (Lorazepam 2 Mg/Ml Inj) 0.5 mg IV NOW ONE Stop: 12/12/21 07:43 Last Admin: 12/12/21 07:57 Dose: 0.5 mg Documented by: COLLIN Lorazepam (Lorazepam 2 Mg/Ml Inj) 1 mg IV NOW ONE Stop: 12/12/21 09:03 Last Admin: 12/12/21 09:08 Dose: 1 mg Documented by: ROBERT Vital Signs Vital signs: Vital Signs - 8 hr 12/12/21 09:00 12/12/21 09:01 12/12/21 09:30 Pulse Rate 89 92 H 91 H Respiratory Rate 20 20 19 Blood Pressure 161/72 H Pulse Oximetry 97 98 98 12/12/21 09:31 12/12/21 10:00 12/12/21 10:30 Pulse Rate 89 98 H 95 H Respiratory Rate 21 20 19 Blood Pressure 164/61 H Pulse Oximetry 92 96 97 12/12/21 10:31 12/12/21 10:58 12/12/21 11:00 Pulse Rate 96 H 88 86 Respiratory Rate 19 20 20 Blood Pressure 178/74 H 161/69 H 165/77 H Pulse Oximetry 97 97 96 12/12/21 11:30 12/12/21 12:00 12/12/21 12:30 Pulse Rate 85 86 86 Respiratory Rate 21 21 17 Blood Pressure 136/66 127/60 Pulse Oximetry 97 97 98 12/12/21 12:31 Pulse Rate 86 Respiratory Rate 17 Blood Pressure 147/65 H Pulse Oximetry 98 <Javid Bazan, DO - Last Filed: 12/12/21 16:56> Orders Ordered: ED Orders 12/12/21 08:04 Urinalysis and Microscopic Stat Urine Drug Screen, Rapid Stat 12/12/21 10:18 CT head/brain wo con Stat 12/12/21 10:45 Ammonia (NH3) Stat Acetaminophen (Acetaminophen 325 Mg Tablet) 650 mg PO Q6HR PRN PRN Reason: pain, fever Heparin Sodium (Porcine) (Heparin 5,000 Unit/Ml Vial) 5,000 unit SUBCUT BID KACIE Naloxone HCl (Naloxone 0.4 Mg/Ml Vial) 0.2 mg IV Q2MIN PRN PRN Reason: Opiate Reversal Ondansetron HCl (Ondansetron 4 Mg/2 Ml Inj) 4 mg IV Q8HR PRN PRN Reason: Nausea And Vomiting Tamsulosin HCl (Tamsulosin 0.4 Mg Capsule) 0.8 mg PO DAILY KACIE Discontinued Medications Ammonia (Aromatic Spirit) (Ammonia Inhalant 1 Each) 1 each INH NOW ONE Stop: 12/12/21 10:19 Last Admin: 12/12/21 10:44 Dose: Not Given Documented by: ROBERT Lorazepam (Lorazepam 2 Mg/Ml Inj) 0.5 mg IV NOW ONE Stop: 12/12/21 07:43 Last Admin: 12/12/21 07:57 Dose: 0.5 mg Documented by: COLLIN Lorazepam (Lorazepam 2 Mg/Ml Inj) 1 mg IV NOW ONE Stop: 12/12/21 09:03 Last Admin: 12/12/21 09:08 Dose: 1 mg Documented by: ROBERT Vital Signs Vital signs: Vital Signs - 8 hr 12/12/21 09:00 12/12/21 09:01 12/12/21 09:30 Pulse Rate 89 92 H 91 H Respiratory Rate 20 20 19 Blood Pressure 161/72 H Pulse Oximetry 97 98 98 12/12/21 09:31 12/12/21 10:00 12/12/21 10:30 Pulse Rate 89 98 H 95 H Respiratory Rate 21 20 19 Blood Pressure 164/61 H Pulse Oximetry 92 96 97 12/12/21 10:31 12/12/21 10:58 12/12/21 11:00 Pulse Rate 96 H 88 86 Respiratory Rate 19 20 20 Blood Pressure 178/74 H 161/69 H 165/77 H Pulse Oximetry 97 97 96 12/12/21 11:30 12/12/21 12:00 12/12/21 12:30 Pulse Rate 85 86 86 Respiratory Rate 21 21 17 Blood Pressure 136/66 127/60 Pulse Oximetry 97 97 98 12/12/21 12:31 Pulse Rate 86 Respiratory Rate 17 Blood Pressure 147/65 H Pulse Oximetry 98 MDM - Altered Mental Status <Xander Johnston DO - Last Filed: 12/12/21 06:48> Lab Data Result diagrams: 12/12/21 06:35 12/12/21 06:35 Labs: Lab Results 12/12/21 12/12/21 12/12/21 Range/Units 06:35 06:35 06:35 WBC 8.7 (4.5-11.0) X10^3/uL RBC 3.25 L (4.5-5.9) X10^6/uL Hgb 9.2 L (13.5-17.5) g/dL Hct 27.4 L (41-53) % MCV 84.3 (80-100) fL MCH 28.3 (26-34) PG MCHC 33.6 (30-36) % RDW 15.0 H (11.6-14.8) % Plt Count 257 (150-400) X10^3/uL Neut % (Auto) 73.8 (50-75) % Lymph % (Auto) 11.0 L (25-40) % [place] % (Auto) 10.7 (3-14) % Eos % (Auto) 3.8 (2-4) % Baso % (Auto) 0.7 (0-2) % Neut # (Auto) 6400 (2144-1071) /uL Lymph # (Auto) 1000 L (6462-9373) /uL [place] # (Auto) 900 (0-900) /uL Eos # (Auto) 300 (0-450) /uL Baso # (Auto) 100 (0-100) /uL Sodium 125 L (137-145) mmol/L Potassium 4.8 (3.4-5.1) mmol/L Chloride 93 L (98-107) mmol/L Carbon Dioxide 22 (22-32) mmol/L BUN 14 (9-20) mg/dL Creatinine 0.85 (0.66-1.25) mg/dL Estimated GFR > 60 (>60) mL/min BUN/Creatinine Ratio 16.5 (6-22) Glucose 102 (80-110) mg/dL Calcium 8.0 L (8.4-10.2) mg/dL Magnesium 2.0 (1.6-2.3) mg/dL Total Bilirubin 0.4 (0.2-1.3) mg/dL AST 31 (17-59) IU/L ALT 15 (<50) IU/L Alkaline Phosphatase 93 (38-126) U/L Ammonia (9-30) umol/L Total Protein 6.9 (6.3-8.2) g/dL Albumin 3.7 (3.5-5.0) g/dL Globulin 3.2 (1.7-4.1) g/dL Albumin/Globulin Ratio 1.2 (1.0-2.8) TSH 1.55 (0.47-4.68) uIU/mL Urine Color Urine Appearance Urine pH (4.5-8.0) Ur Specific [place] (1.000-1.035) Urine Protein (Negative) Urine Glucose (UA) (Negative) g/dL Urine Ketones (NEGATIVE) Urine Occult Blood (Negative) Urine Nitrate (Negative) Urine Bilirubin (NEGATIVE) Urine Urobilinogen (0.2) E.U./dL Ur Leukocyte Esterase (NEGATIVE) Urine RBC (0-5/HPF) Urine WBC (0-5/HPF) Urine Bacteria (None) Ur Culture Indicated? U Opiates 300ng/mL cut (Negative) Ur Oxycodone Screen (Negative) Urine Methadone Screen (Negative) Ur Barbiturates Screen (Negative) U Tricyclic Antidepress (Negative) Ur Phencyclidine Scrn (Negative) Ur Amphetamines Screen (Negative) U Methamphetamines Scrn (Negative) Ur MDMA Scrn (Ecstasy) (Negative) U Benzodiazepines Scrn (Negative) Urine Cocaine Screen (Negative) U Marijuana (THC) Screen (Negative) SARS-CoV-2 (PCR) (Negative) 12/12/21 12/12/21 12/12/21 Range/Units 07:09 08:04 08:04 WBC (4.5-11.0) X10^3/uL RBC (4.5-5.9) X10^6/uL Hgb (13.5-17.5) g/dL Hct (41-53) % MCV (80-100) fL MCH (26-34) PG MCHC (30-36) % RDW (11.6-14.8) % Plt Count (150-400) X10^3/uL Neut % (Auto) (50-75) % Lymph % (Auto) (25-40) % [place] % (Auto) (3-14) % Eos % (Auto) (2-4) % Baso % (Auto) (0-2) % Neut # (Auto) (2883-8980) /uL Lymph # (Auto) (0545-0637) /uL [place] # (Auto) (0-900) /uL Eos # (Auto) (0-450) /uL Baso # (Auto) (0-100) /uL Sodium (137-145) mmol/L Potassium (3.4-5.1) mmol/L Chloride (98-107) mmol/L Carbon Dioxide (22-32) mmol/L BUN (9-20) mg/dL Creatinine (0.66-1.25) mg/dL Estimated GFR (>60) mL/min BUN/Creatinine Ratio (6-22) Glucose (80-110) mg/dL Calcium (8.4-10.2) mg/dL Magnesium (1.6-2.3) mg/dL Total Bilirubin (0.2-1.3) mg/dL AST (17-59) IU/L ALT (<50) IU/L Alkaline Phosphatase (38-126) U/L Ammonia (9-30) umol/L Total Protein (6.3-8.2) g/dL Albumin (3.5-5.0) g/dL Globulin (1.7-4.1) g/dL Albumin/Globulin Ratio (1.0-2.8) TSH (0.47-4.68) uIU/mL Urine Color Yellow Urine Appearance Clear Urine pH 7.0 (4.5-8.0) Ur Specific [place] 1.010 (1.000-1.035) Urine Protein 1+ H (Negative) Urine Glucose (UA) Negative (Negative) g/dL Urine Ketones Negative (NEGATIVE) Urine Occult Blood Trace-intact (Negative) Urine Nitrate Negative (Negative) Urine Bilirubin Negative (NEGATIVE) Urine Urobilinogen 0.2 (0.2) E.U./dL Ur Leukocyte Esterase Negative (NEGATIVE) Urine RBC 1-5/hpf (0-5/HPF) Urine WBC None seen (0-5/HPF) Urine Bacteria None seen (None) Ur Culture Indicated? Cult not indicated U Opiates 300ng/mL cut Negative (Negative) Ur Oxycodone Screen Negative (Negative) Urine Methadone Screen Negative (Negative) Ur Barbiturates Screen Negative (Negative) U Tricyclic Antidepress Negative (Negative) Ur Phencyclidine Scrn Negative (Negative) Ur Amphetamines Screen Negative (Negative) U Methamphetamines Scrn Negative (Negative) Ur MDMA Scrn (Ecstasy) Negative (Negative) U Benzodiazepines Scrn Negative (Negative) Urine Cocaine Screen Negative (Negative) U Marijuana (THC) Screen Negative (Negative) SARS-CoV-2 (PCR) Negative (Negative) 12/12/21 Range/Units 10:45 WBC (4.5-11.0) X10^3/uL RBC (4.5-5.9) X10^6/uL Hgb (13.5-17.5) g/dL Hct (41-53) % MCV (80-100) fL MCH (26-34) PG MCHC (30-36) % RDW (11.6-14.8) % Plt Count (150-400) X10^3/uL Neut % (Auto) (50-75) % Lymph % (Auto) (25-40) % [place] % (Auto) (3-14) % Eos % (Auto) (2-4) % Baso % (Auto) (0-2) % Neut # (Auto) (8389-9972) /uL Lymph # (Auto) (9430-7020) /uL [place] # (Auto) (0-900) /uL Eos # (Auto) (0-450) /uL Baso # (Auto) (0-100) /uL Sodium (137-145) mmol/L Potassium (3.4-5.1) mmol/L Chloride (98-107) mmol/L Carbon Dioxide (22-32) mmol/L BUN (9-20) mg/dL Creatinine (0.66-1.25) mg/dL Estimated GFR (>60) mL/min BUN/Creatinine Ratio (6-22) Glucose (80-110) mg/dL Calcium (8.4-10.2) mg/dL Magnesium (1.6-2.3) mg/dL Total Bilirubin (0.2-1.3) mg/dL AST (17-59) IU/L ALT (<50) IU/L Alkaline Phosphatase (38-126) U/L Ammonia < 9 L (9-30) umol/L Total Protein (6.3-8.2) g/dL Albumin (3.5-5.0) g/dL Globulin (1.7-4.1) g/dL Albumin/Globulin Ratio (1.0-2.8) TSH (0.47-4.68) uIU/mL Urine Color Urine Appearance Urine pH (4.5-8.0) Ur Specific [place] (1.000-1.035) Urine Protein (Negative) Urine Glucose (UA) (Negative) g/dL Urine Ketones (NEGATIVE) Urine Occult Blood (Negative) Urine Nitrate (Negative) Urine Bilirubin (NEGATIVE) Urine Urobilinogen (0.2) E.U./dL Ur Leukocyte Esterase (NEGATIVE) Urine RBC (0-5/HPF) Urine WBC (0-5/HPF) Urine Bacteria (None) Ur Culture Indicated? U Opiates 300ng/mL cut (Negative) Ur Oxycodone Screen (Negative) Urine Methadone Screen (Negative) Ur Barbiturates Screen (Negative) U Tricyclic Antidepress (Negative) Ur Phencyclidine Scrn (Negative) Ur Amphetamines Screen (Negative) U Methamphetamines Scrn (Negative) Ur MDMA Scrn (Ecstasy) (Negative) U Benzodiazepines Scrn (Negative) Urine Cocaine Screen (Negative) U Marijuana (THC) Screen (Negative) SARS-CoV-2 (PCR) (Negative) MDM Narrative Medical decision making narrative: 81M confused and feeling jittery and unable to shut off his brain since recent DC from [facility] (awaiting records). He has a history of hyponatremia, running in the mid to low 120s for almost a year. He denies any medication change other than ABX on DC from hospital. When asked about his gabapentin he states he does not take it. He had a refill in September and was on it in October. We are awaiting [facility] records. No obvious source, will need labs including urine and records from [facility]. Signed out to Dr. Bazan for final disposition. <Javid Bazan, DO - Last Filed: 12/12/21 16:56> Lab Data Labs: Lab Results 12/12/21 12/12/21 12/12/21 Range/Units 06:35 06:35 06:35 WBC 8.7 (4.5-11.0) X10^3/uL RBC 3.25 L (4.5-5.9) X10^6/uL Hgb 9.2 L (13.5-17.5) g/dL Hct 27.4 L (41-53) % MCV 84.3 (80-100) fL MCH 28.3 (26-34) PG MCHC 33.6 (30-36) % RDW 15.0 H (11.6-14.8) % Plt Count 257 (150-400) X10^3/uL Neut % (Auto) 73.8 (50-75) % Lymph % (Auto) 11.0 L (25-40) % [place] % (Auto) 10.7 (3-14) % Eos % (Auto) 3.8 (2-4) % Baso % (Auto) 0.7 (0-2) % Neut # (Auto) 6400 (3226-4202) /uL Lymph # (Auto) 1000 L (5994-7287) /uL [place] # (Auto) 900 (0-900) /uL Eos # (Auto) 300 (0-450) /uL Baso # (Auto) 100 (0-100) /uL Sodium 125 L (137-145) mmol/L Potassium 4.8 (3.4-5.1) mmol/L Chloride 93 L (98-107) mmol/L Carbon Dioxide 22 (22-32) mmol/L BUN 14 (9-20) mg/dL Creatinine 0.85 (0.66-1.25) mg/dL Estimated GFR > 60 (>60) mL/min BUN/Creatinine Ratio 16.5 (6-22) Glucose 102 (80-110) mg/dL Calcium 8.0 L (8.4-10.2) mg/dL Magnesium 2.0 (1.6-2.3) mg/dL Total Bilirubin 0.4 (0.2-1.3) mg/dL AST 31 (17-59) IU/L ALT 15 (<50) IU/L Alkaline Phosphatase 93 (38-126) U/L Ammonia (9-30) umol/L Total Protein 6.9 (6.3-8.2) g/dL Albumin 3.7 (3.5-5.0) g/dL Globulin 3.2 (1.7-4.1) g/dL Albumin/Globulin Ratio 1.2 (1.0-2.8) TSH 1.55 (0.47-4.68) uIU/mL Urine Color Urine Appearance Urine pH (4.5-8.0) Ur Specific [place] (1.000-1.035) Urine Protein (Negative) Urine Glucose (UA) (Negative) g/dL Urine Ketones (NEGATIVE) Urine Occult Blood (Negative) Urine Nitrate (Negative) Urine Bilirubin (NEGATIVE) Urine Urobilinogen (0.2) E.U./dL Ur Leukocyte Esterase (NEGATIVE) Urine RBC (0-5/HPF) Urine WBC (0-5/HPF) Urine Bacteria (None) Ur Culture Indicated? U Opiates 300ng/mL cut (Negative) Ur Oxycodone Screen (Negative) Urine Methadone Screen (Negative) Ur Barbiturates Screen (Negative) U Tricyclic Antidepress (Negative) Ur Phencyclidine Scrn (Negative) Ur Amphetamines Screen (Negative) U Methamphetamines Scrn (Negative) Ur MDMA Scrn (Ecstasy) (Negative) U Benzodiazepines Scrn (Negative) Urine Cocaine Screen (Negative) U Marijuana (THC) Screen (Negative) SARS-CoV-2 (PCR) (Negative) 12/12/21 12/12/21 12/12/21 Range/Units 07:09 08:04 08:04 WBC (4.5-11.0) X10^3/uL RBC (4.5-5.9) X10^6/uL Hgb (13.5-17.5) g/dL Hct (41-53) % MCV (80-100) fL MCH (26-34) PG MCHC (30-36) % RDW (11.6-14.8) % Plt Count (150-400) X10^3/uL Neut % (Auto) (50-75) % Lymph % (Auto) (25-40) % [place] % (Auto) (3-14) % Eos % (Auto) (2-4) % Baso % (Auto) (0-2) % Neut # (Auto) (7024-2517) /uL Lymph # (Auto) (6833-7407) /uL [place] # (Auto) (0-900) /uL Eos # (Auto) (0-450) /uL Baso # (Auto) (0-100) /uL Sodium (137-145) mmol/L Potassium (3.4-5.1) mmol/L Chloride (98-107) mmol/L Carbon Dioxide (22-32) mmol/L BUN (9-20) mg/dL Creatinine (0.66-1.25) mg/dL Estimated GFR (>60) mL/min BUN/Creatinine Ratio (6-22) Glucose (80-110) mg/dL Calcium (8.4-10.2) mg/dL Magnesium (1.6-2.3) mg/dL Total Bilirubin (0.2-1.3) mg/dL AST (17-59) IU/L ALT (<50) IU/L Alkaline Phosphatase (38-126) U/L Ammonia (9-30) umol/L Total Protein (6.3-8.2) g/dL Albumin (3.5-5.0) g/dL Globulin (1.7-4.1) g/dL Albumin/Globulin Ratio (1.0-2.8) TSH (0.47-4.68) uIU/mL Urine Color Yellow Urine Appearance Clear Urine pH 7.0 (4.5-8.0) Ur Specific [place] 1.010 (1.000-1.035) Urine Protein 1+ H (Negative) Urine Glucose (UA) Negative (Negative) g/dL Urine Ketones Negative (NEGATIVE) Urine Occult Blood Trace-intact (Negative) Urine Nitrate Negative (Negative) Urine Bilirubin Negative (NEGATIVE) Urine Urobilinogen 0.2 (0.2) E.U./dL Ur Leukocyte Esterase Negative (NEGATIVE) Urine RBC 1-5/hpf (0-5/HPF) Urine WBC None seen (0-5/HPF) Urine Bacteria None seen (None) Ur Culture Indicated? Cult not indicated U Opiates 300ng/mL cut Negative (Negative) Ur Oxycodone Screen Negative (Negative) Urine Methadone Screen Negative (Negative) Ur Barbiturates Screen Negative (Negative) U Tricyclic Antidepress Negative (Negative) Ur Phencyclidine Scrn Negative (Negative) Ur Amphetamines Screen Negative (Negative) U Methamphetamines Scrn Negative (Negative) Ur MDMA Scrn (Ecstasy) Negative (Negative) U Benzodiazepines Scrn Negative (Negative) Urine Cocaine Screen Negative (Negative) U Marijuana (THC) Screen Negative (Negative) SARS-CoV-2 (PCR) Negative (Negative) 12/12/21 Range/Units 10:45 WBC (4.5-11.0) X10^3/uL RBC (4.5-5.9) X10^6/uL Hgb (13.5-17.5) g/dL Hct (41-53) % MCV (80-100) fL MCH (26-34) PG MCHC (30-36) % RDW (11.6-14.8) % Plt Count (150-400) X10^3/uL Neut % (Auto) (50-75) % Lymph % (Auto) (25-40) % [place] % (Auto) (3-14) % Eos % (Auto) (2-4) % Baso % (Auto) (0-2) % Neut # (Auto) (1308-9186) /uL Lymph # (Auto) (6641-1379) /uL [place] # (Auto) (0-900) /uL Eos # (Auto) (0-450) /uL Baso # (Auto) (0-100) /uL Sodium (137-145) mmol/L Potassium (3.4-5.1) mmol/L Chloride (98-107) mmol/L Carbon Dioxide (22-32) mmol/L BUN (9-20) mg/dL Creatinine (0.66-1.25) mg/dL Estimated GFR (>60) mL/min BUN/Creatinine Ratio (6-22) Glucose (80-110) mg/dL Calcium (8.4-10.2) mg/dL Magnesium (1.6-2.3) mg/dL Total Bilirubin (0.2-1.3) mg/dL AST (17-59) IU/L ALT (<50) IU/L Alkaline Phosphatase (38-126) U/L Ammonia < 9 L (9-30) umol/L Total Protein (6.3-8.2) g/dL Albumin (3.5-5.0) g/dL Globulin (1.7-4.1) g/dL Albumin/Globulin Ratio (1.0-2.8) TSH (0.47-4.68) uIU/mL Urine Color Urine Appearance Urine pH (4.5-8.0) Ur Specific [place] (1.000-1.035) Urine Protein (Negative) Urine Glucose (UA) (Negative) g/dL Urine Ketones (NEGATIVE) Urine Occult Blood (Negative) Urine Nitrate (Negative) Urine Bilirubin (NEGATIVE) Urine Urobilinogen (0.2) E.U./dL Ur Leukocyte Esterase (NEGATIVE) Urine RBC (0-5/HPF) Urine WBC (0-5/HPF) Urine Bacteria (None) Ur Culture Indicated? U Opiates 300ng/mL cut (Negative) Ur Oxycodone Screen (Negative) Urine Methadone Screen (Negative) Ur Barbiturates Screen (Negative) U Tricyclic Antidepress (Negative) Ur Phencyclidine Scrn (Negative) Ur Amphetamines Screen (Negative) U Methamphetamines Scrn (Negative) Ur MDMA Scrn (Ecstasy) (Negative) U Benzodiazepines Scrn (Negative) Urine Cocaine Screen (Negative) U Marijuana (THC) Screen (Negative) SARS-CoV-2 (PCR) (Negative) Imaging Data CT scan - head: Radiologist's Impression: [address] [address] [address] Scan Report Signed Patient: Gene Mane MR#: [id number] : 1940 Acct:[id number] Age/Sex: 81 / M Date of Service: 12/12/21 Loc: ED Accession Number: [id number] ?? Procedure: CT head/brain wo con Ordering Provider: Javid Bazan D.O. PROCEDURE:? CT HEAD/BRAIN WO CON ? INDICATIONS:? confusion ? TECHNIQUE:? Noncontrast 4.5 mm thick angled axial sections acquired from the foramen magnum to the vertex, with coronal and sagittal reformats.? For radiation dose reduction, the following was used:? automated exposure control, adjustment of mA and/or kV according to patient size.? ? COMPARISON:? [facility], CT, HEAD WITHOUT CONTRAST, 01/07/2017, 12:35. ? FINDINGS:? Image quality:? Excellent.? ? CSF spaces:? Basal cisterns are patent.? No extra-axial fluid collections.? The ventricles are symmetric in size and shape.? ? Brain:? No intracranial bleeds or masses.? There is cerebral volume loss for age, with resultant ventricular and sulcal prominence.? There are periventricular and deep white matter chronic small vessel ischemic changes.? There is intracranial internal carotid artery atherosclerosis.? ? Skull and face:? Calvarium and visualized facial bones appear intact, without suspicious lesions.? ? Sinuses:? Air-fluid level within the left maxillary sinus.? Visualized sinuses and mastoids are otherwise clear. ? IMPRESSION:? 1. No acute intracranial abnormality. 2. Left maxillary sinusitis.? ? ? Dictated by: Neo Suarez M.D. on 12/12/2021 at 10:50 ? ? Approved by: Neo Suarez M.D. on 12/12/2021 at 10:50?? ECG Data Attestation: I personally reviewed and interpreted this ECG as follows: Interpretation: Sinus rhythm Ventricular rate of 76 First degree AV block with a LA interval of 212 milliseconds Normal QRS Normal QTC No ST T wave changes MDM Narrative Medical decision making narrative: 81M confused and feeling jittery and unable to shut off his brain since recent DC from [facility] (awaiting records). He has a history of hyponatremia, running in the mid to low 120s for almost a year. He denies any medication change other than ABX on DC from hospital. When asked about his gabapentin he states he does not take it. He had a refill in September and was on it in October. We are awaiting [facility] records. No obvious source, will need labs including urine and records from [facility]. Signed out to Dr. Bazan for final disposition. Dr bazan: Received turned over. Reviewed patient's history and physical exam. Patient is obviously having a difficult time staying still in bed. He is uncomfortable. Was given a small dose of Ativan which did not help his symptoms. Another dose was given which again did not help his symptoms. He did start having hallucinations. Head CT was ordered which is unremarkable. Unsure what is causing his symptoms. He does not specifically into a toxidrome. Potentially be benzodiazepine withdrawal. Potentially gabapentin withdrawal. Potentially reaction to his IV antibiotics. Could also be nicotine overdose. Is afebrile. Patient not improving with any of the interventions provided here in the ER. I did discuss the case with Dr. Montemayor. Will admit for further evaluation and treatment. Discussed the need for admission with the patient. He expressed understanding agreement as well. Discharge Plan Departure Patient Disposition: Admitted as Observation Clinical Impression: Acute confusion, Medication reaction Admit Date/Time: 12/12/21 12:51 Admit Provider: Wayne Montemayor
[2021-12-12 07:06] LABS: Add Manual Diff / Slide Review NO; Basophils Absolute Auto 100 /uL (0-100); Basophils Percent Auto 0.7 % (0-2); Eosinophils Absolute Auto 300 /uL (0-450); Eosinophils Percent Auto 3.8 % (2-4); Hematocrit 27.4 % (41-53); Hemoglobin 9.2 g/dL (13.5-17.5); Lymphocytes Absolute Auto 1000 /uL (1100-4500); Mean Corpuscular HGB Conc 33.6 % (30-36); Mean Corpuscular Hemoglobin 28.3 PG (26-34); Mean Corpuscular Volume 84.3 fL (80-100); Monocytes Absolute Auto 900 /uL (0-900); Monocytes Percent Auto 10.7 % (3-14); Neutrophils Absolute Auto 6400 /uL (1500-7000); Neutrophils Percent Auto 73.8 % (50-75); Platelet Count 257 X10^3/uL (150-400); Red Blood Cell Count 3.25 X10^6/uL (4.5-5.9); White Blood Cell Count 8.7 X10^3/uL (4.5-11.0)
[2021-12-12 07:21] LABS: Alanine Aminotransferase 15 IU/L (<50); Albumin 3.7 g/dL (3.5-5.0); Albumin Globulin Ratio 1.2 (1.0-2.8); Alkaline Phosphatase 93 U/L (38-126); Aspartate Aminotransferase 31 IU/L (17-59); BUN Creatinine Ratio 16.5 (6-22); Bilirubin Total 0.4 mg/dL (0.2-1.3); Blood Urea Nitrogen 14 mg/dL (9-20); Carbon Dioxide 22 mmol/L (22-32); Chloride 93 mmol/L (98-107); Estimated Glomerular Filt Rate > 60 mL/min (>60); Globulin 3.2 g/dL (1.7-4.1); Glucose 102 mg/dL (80-110); HEMOLYSIS < 15 (0-50); Potassium 4.8 mmol/L (3.4-5.1); Sodium 125 mmol/L (137-145); Total Protein 6.9 g/dL (6.3-8.2)
[2021-12-12 07:55] LABS: COVID19 -Nasal RAPID Negative (Negative)
[2021-12-12] MEDS: LORazepam 2 MG/ML INJ 0.5 MG IV (07:57)
[2021-12-12 08:01] LABS: TSH w/ Reflex to FT4 1.55 uIU/mL (0.47-4.68)
[2021-12-12 08:49] LABS: UR Morphine/Opiate cutoff 300 Negative (Negative); Ur Creatinine Normal (Normal); Ur Specific Gravity Normal (Normal); Urine Amphetamines Negative (Negative); Urine Barbiturates Negative (Negative); Urine Benzodiazepines Negative (Negative); Urine Cocaine Negative (Negative); Urine MDMA Negative (Negative); Urine Methadone Negative (Negative); Urine Methamphetamines Negative (Negative); Urine Oxycodone Negative (Negative); Urine Phencyclidine Negative (Negative); Urine Tetrahydrocannabinol Negative (Negative); Urine Tricyclic Antidepressant Negative (Negative); Urine pH Normal (Normal)
[2021-12-12] MEDS: LORazepam 2 MG/ML INJ 1 MG IV (09:08)
[2021-12-12 09:30] LABS: Appearance Urine UA CLEAR; Bilirubin Urine UA NEGATIVE (NEGATIVE); Color Urine UA YELLOW; Glucose Urine UA NEGATIVE (Negative); Ketones Urine UA NEGATIVE (NEGATIVE); Leukocyte Esterase Urine UA NEGATIVE (NEGATIVE); Nitrite Urine UA NEGATIVE (Negative); Occult Blood Urine UA TRACE-INTACT (Negative); Protein Urine UA 1+ (Negative); Urobilinogen Urine UA 0.2 E.U./dL (0.2)
[2021-12-12 09:38] LABS: Bacteria Urine None Seen; RBC Urine 1-5/HPF (0-5/HPF); WBC Urine None Seen (0-5/HPF)
[2021-12-12 09:39] LABS: Culture Indicated Urine Cult Not Indicated
--- NOTE | 2021-12-12 10:18 | DI.CT.S_ITS ---
PROCEDURE: CT HEAD/BRAIN WO CON INDICATIONS: confusion TECHNIQUE: Noncontrast 4.5 mm thick angled axial sections acquired from the foramen magnum to the vertex, with coronal and sagittal reformats. For radiation dose reduction, the following was used: automated exposure control, adjustment of mA and/or kV according to patient size. COMPARISON: [facility], CT, HEAD WITHOUT CONTRAST, 01/07/2017, 12:35. FINDINGS: Image quality: Excellent. CSF spaces: Basal cisterns are patent. No extra-axial fluid collections. The ventricles are symmetric in size and shape. Brain: No intracranial bleeds or masses. There is cerebral volume loss for age, with resultant ventricular and sulcal prominence. There are periventricular and deep white matter chronic small vessel ischemic changes. There is intracranial internal carotid artery atherosclerosis. Skull and face: Calvarium and visualized facial bones appear intact, without suspicious lesions. Sinuses: Air-fluid level within the left maxillary sinus. Visualized sinuses and mastoids are otherwise clear. IMPRESSION: 1. No acute intracranial abnormality. 2. Left maxillary sinusitis. Dictated by: Neo Suarez M.D. on 12/12/2021 at 10:50 Approved by: Noe Suarez M.D. on 12/12/2021 at 10:50
--- NOTE | 2021-12-12 10:18 | PC.NURSE ---
Pt has increased restlessness, asked this nurse about the goats/sheep in his room and states there is something or someone swinging from the light fixture in his tx room. Physician aware.
[2021-12-12 11:03] LABS: Ammonia (NH3) < 9 umol/L (9-30)
[2021-12-12] MEDS: HYDROCODONE/ACET 5/325 TABLET 1 TAB PO ×2 (18:30→23:18)
[2021-12-12] MEDS: MEROPENEM 1 GM in SODIUM CHLORIDE 0.9% 100 ML IV (18:31)
--- NOTE | 2021-12-12 19:47 | P.HP_ITS ---
History of Present Illness History of Present Illness Date Patient Seen: 12/12/21 Time Patient Seen: 18:00 Chief complaint: crawling out of his skin Narrative: Mr. Mane is an 81M with PMH PVD s/p L fem-pop, osteomyelitis of his extremity for which he is receiving IV antibiotics through a PICC. He has been at home and for the last few days has had multiple symptoms. He is somewhat erratic in his story, but he has noted he has become confused, like my mind isn't working He has noted hallucinations, during the interview he noted earlier that he saw the ceiling sprinkler swinging around the ceiling. He has also noted jitteriness in mostly his hands and feet. He feels his mind is racing. He denies fevers/chills. He denies any new medications aside from antibiotics with cefepime for his osteomyelitis. He has been prescribed gabapentin and he can not clearly state how much he takes. He has no headache, lateralizing weakness, nausea/vomiting/diarrhea. He has no dysuria. No cough/sob. In the ED workup was done, vitals notable for elevated blood pressure. Labs notable for WBC 8.2, hgb 9.2, plts 257. Na 125, creatinine 0.85. TSH normal. UA negative. UDS negative. Ammonia negative. COVID negative. CT head shows air- fluid level in the sinus. By the time he got to the floor he was feeling improved. Patient History Medical History BPH (benign prostatic hyperplasia) Erectile dysfunction Gait instability Hyponatremia Left foot pain Neck mass Toenail fungus Uses walker Well adult exam Surgical History Anesthesia History of cataract removal with insertion of prosthetic lens Family & Social History Social History: household members spouse Prior Living Arrangements House Safety & Behavioral: Feels Safe in Current Yes Environment Tobacco & Substance use: Smoking Status Current every day smoker alcohol intake frequency 0-2 drinks per day Substance Use Type does not use Meds Home Medications and Allergies Home Medications Medication Instructions Recorded Confirmed Type Disabled parking permit #1 ea 12/27/17 12/12/21 Rx diclofenac sodium 1 % topical gel 2 g TOPICAL QID #100 g 06/16/20 12/12/21 Rx (Voltaren Arthritis Pain) tamsulosin 0.4 mg capsule (Flomax) 0.8 mg PO DAILY #180 cap 10/02/20 12/12/21 Rx finasteride 5 mg tablet See Rx Instructions .ROUTE 06/19/21 12/12/21 Rx .COMPLEX #30 tab sulfamethoxazole 800 1 tab PO BID #10 tab 07/06/21 12/12/21 Rx mg-trimethoprim 160 mg tablet (Bactrim DS) oxazepam 15 mg capsule See Rx Instructions .ROUTE 07/08/21 12/12/21 Rx .COMPLEX #90 cap terbinafine HCl 250 mg tablet 250 mg PO DAILY #90 tab 08/05/21 12/12/21 Rx sildenafil (pulm.hypertension) 20 20 mg PO DAILY PRN #50 tab 08/06/21 12/12/21 Rx mg tablet cephalexin 500 mg capsule 500 mg PO TID #30 cap 10/05/21 12/12/21 Rx gabapentin 100 mg capsule 100 mg PO BEDTIME PRN #30 cap 10/26/21 12/12/21 Rx Allergies Allergy/AdvReac Type Severity Reaction Status Date / Time codeine AdvReac Mild ABD Verified 10/05/21 15:06 PAIN/GI UPSET Review of Systems Review of Systems Narrative: 14 systems reviewed and negative aside from what is noted in HPI Exam Vital Signs (past 8 hours): - 12/12/21 12:00 12/12/21 12:30 12/12/21 12:31 Temperature Pulse Rate 86 86 86 Respiratory Rate 21 17 17 Blood Pressure 127/60 147/65 H Pulse Oximetry 97 98 98 12/12/21 13:00 12/12/21 13:01 12/12/21 13:30 Temperature 98.8 F Pulse Rate 91 H 87 87 Respiratory Rate 21 13 18 Blood Pressure 154/65 H 138/69 Pulse Oximetry 97 96 98 Oxygen Delivery Method Room Air Oxygen Flow Rate 0 Narrative Exam Narrative: GEN: no acute distress HEENT: moist mucous membranes NECK: trachea midline, no JVD CV: regular rate and rhythm, no murmurs PULM: clear bilaterally, no wheezes, rhonchi, rales ABD: soft, nontender, nondistended, no organomegaly, normal bowel sounds EXT: warm and well perfused with no edema NEURO: awake, alert oriented, no focal deficits, patient is clearly somewhat restless in bed, not tremulous, does not appear anxious Objective Labs Result Diagrams: 12/12/21 06:35 12/12/21 06:35 Labs: Laboratory Results - last 24 hr 12/12/21 12/12/21 12/12/21 06:35 06:35 06:35 WBC 8.7 RBC 3.25 L Hgb 9.2 L Hct 27.4 L MCV 84.3 MCH 28.3 MCHC 33.6 RDW 15.0 H Plt Count 257 Neut % (Auto) 73.8 Lymph % (Auto) 11.0 L [place] % (Auto) 10.7 Eos % (Auto) 3.8 Baso % (Auto) 0.7 Neut # (Auto) 6400 Lymph # (Auto) 1000 L [place] # (Auto) 900 Eos # (Auto) 300 Baso # (Auto) 100 Sodium 125 L Potassium 4.8 Chloride 93 L Carbon Dioxide 22 BUN 14 Creatinine 0.85 Estimated GFR > 60 BUN/Creatinine Ratio 16.5 Glucose 102 Calcium 8.0 L Magnesium 2.0 Total Bilirubin 0.4 AST 31 ALT 15 Alkaline Phosphatase 93 Ammonia Total Protein 6.9 Albumin 3.7 Globulin 3.2 Albumin/Globulin Ratio 1.2 TSH 1.55 Urine Color Urine Appearance Urine pH Ur Specific [place] Urine Protein Urine Glucose (UA) Urine Ketones Urine Occult Blood Urine Nitrate Urine Bilirubin Urine Urobilinogen Ur Leukocyte Esterase Urine RBC Urine WBC Urine Bacteria Ur Culture Indicated? U Opiates 300ng/mL cut Ur Oxycodone Screen Urine Methadone Screen Ur Barbiturates Screen U Tricyclic Antidepress Ur Phencyclidine Scrn Ur Amphetamines Screen U Methamphetamines Scrn Ur MDMA Scrn (Ecstasy) U Benzodiazepines Scrn Urine Cocaine Screen U Marijuana (THC) Screen SARS-CoV-2 (PCR) 12/12/21 12/12/21 12/12/21 07:09 08:04 08:04 WBC RBC Hgb Hct MCV MCH MCHC RDW Plt Count Neut % (Auto) Lymph % (Auto) [place] % (Auto) Eos % (Auto) Baso % (Auto) Neut # (Auto) Lymph # (Auto) [place] # (Auto) Eos # (Auto) Baso # (Auto) Sodium Potassium Chloride Carbon Dioxide BUN Creatinine Estimated GFR BUN/Creatinine Ratio Glucose Calcium Magnesium Total Bilirubin AST ALT Alkaline Phosphatase Ammonia Total Protein Albumin Globulin Albumin/Globulin Ratio TSH Urine Color Yellow Urine Appearance Clear Urine pH 7.0 Ur Specific [place] 1.010 Urine Protein 1+ H Urine Glucose (UA) Negative Urine Ketones Negative Urine Occult Blood Trace-intact Urine Nitrate Negative Urine Bilirubin Negative Urine Urobilinogen 0.2 Ur Leukocyte Esterase Negative Urine RBC 1-5/hpf Urine WBC None seen Urine Bacteria None seen Ur Culture Indicated? Cult not indicated U Opiates 300ng/mL cut Negative Ur Oxycodone Screen Negative Urine Methadone Screen Negative Ur Barbiturates Screen Negative U Tricyclic Antidepress Negative Ur Phencyclidine Scrn Negative Ur Amphetamines Screen Negative U Methamphetamines Scrn Negative Ur MDMA Scrn (Ecstasy) Negative U Benzodiazepines Scrn Negative Urine Cocaine Screen Negative U Marijuana (THC) Screen Negative SARS-CoV-2 (PCR) Negative 12/12/21 10:45 WBC RBC Hgb Hct MCV MCH MCHC RDW Plt Count Neut % (Auto) Lymph % (Auto) [place] % (Auto) Eos % (Auto) Baso % (Auto) Neut # (Auto) Lymph # (Auto) [place] # (Auto) Eos # (Auto) Baso # (Auto) Sodium Potassium Chloride Carbon Dioxide BUN Creatinine Estimated GFR BUN/Creatinine Ratio Glucose Calcium Magnesium Total Bilirubin AST ALT Alkaline Phosphatase Ammonia < 9 L Total Protein Albumin Globulin Albumin/Globulin Ratio TSH Urine Color Urine Appearance Urine pH Ur Specific [place] Urine Protein Urine Glucose (UA) Urine Ketones Urine Occult Blood Urine Nitrate Urine Bilirubin Urine Urobilinogen Ur Leukocyte Esterase Urine RBC Urine WBC Urine Bacteria Ur Culture Indicated? U Opiates 300ng/mL cut Ur Oxycodone Screen Urine Methadone Screen Ur Barbiturates Screen U Tricyclic Antidepress Ur Phencyclidine Scrn Ur Amphetamines Screen U Methamphetamines Scrn Ur MDMA Scrn (Ecstasy) U Benzodiazepines Scrn Urine Cocaine Screen U Marijuana (THC) Screen SARS-CoV-2 (PCR) Assessment & Plan Assessment & Plan narrative: Mr. Mane is an 81M with H PVD s/p recent L fem-pop bypass, currently on treatment for osteomyelitis who presents with hyperactive encephalopathy. 1. Hyperactive encephalopathy -etiology not clear -suspect it is medication related, either withdrawal from medication, or due to antibiotics -attempt to get from family exact dosing of what he is taking -for now stop cefepime, and switch to meropenem 1gm q8 -request records from OSH to determine if antibiotics were ordered based on culture results -CT head with no acute process, only air fluid level in sinus -MR head to rule out other pathology -sodium low at 125, but has been low chronically at this level for months, so suspect this is not the cause, but will monitor 2. Hyponatremia -chronic, near his baseline -on admission was 125 -suspect component of SIADH, as patient appears clinically euvolemic -monitor daily 3. Osteomyelitis -stop cefepime, ordered meropenem for now 4. PVD s/p L fem-pop bypass -graft site looks well healed -pain meds PRN 5. BPH -continue flomax, finasteride CODE: Full Proxy: Glo Mane, friend I have utilized all available resources to reconcile the patient's home medications Time Spent With Patient Critical Care time: I spent a total of [] minutes of critical care time on this patient's care today; this time is exclusive of procedural time.
--- NOTE | 2021-12-12 19:47 | DI.MRI.S_ITS ---
PROCEDURE: MR HEAD/BRAIN WO CON INDICATIONS: confusion TECHNIQUE: Non-contrast axial T1 spin echo, axial T2 fast spin echo, sagittal and axial FLAIR, coronal T2 fast spin echo, axial gradient echo, axial diffusion and ADC through the brain. COMPARISON: [facility], MR, MR ORBITS FACE NECK WO/W CON, 07/30/2020, 12:15. [facility], CT, CT HEAD/BRAIN WO/W CON, 11/05/2020, 13:54. [facility], CT, CT HEAD/BRAIN WO CON, 12/12/2021, 10:38. FINDINGS: Image quality: This examination is limited by involuntary motion artifact. CSF spaces: Ventricles appear symmetric in size and shape. Basal cisterns are patent. No extra-axial fluid collections. Brain: No intracranial bleeds or mass effects. There is cerebral volume loss for age. There are periventricular and deep white matter chronic small vessel ischemic changes. Brainstem appears normal. Diffusion-weighted images show no acute ischemic insults. No chronic ischemic insults. Normal intravascular flow voids are present. Skull and face: This patient has a T2 hyperintense left inferior parotid nodule seen inferiorly that measures up to 1.7 cm on these images. Calvarial bone marrow is normal in signal. Orbits are normal. Note is made of bilateral lens replacements. Sinuses: Focal left maxillary sinus disease is seen, with focal moderate prominent wall thickening. Moderate mucosal thickening is seen within the left ethmoid air cells. Sinuses and mastoids are otherwise relatively clear. IMPRESSION: Limited study demonstrating no findings of acute or subacute infarction. Paranasal sinus disease is noted, which is worst within the left maxillary sinus. Left inferior parotid nodule again seen. Note is made of age-appropriate brain parenchymal volume loss and chronic small vessel ischemic changes. Dictated by: Edgar Jessica M.D. on 12/13/2021 at 12:13 Approved by: Edgar Jessica M.D. on 12/13/2021 at 12:16
[2021-12-12] MEDS: HEPARIN 5,000 UNIT/ML VIAL 5000 UNIT SUBCUT (21:30)
[2021-12-12] MEDS: SODIUM CHLORIDE 0.9% 1,000 ML 84 ML IV (23:28)
[2021-12-13] VITALS: BP 158/65; PULSE 73; RESP 14; TEMP 36.9; O2SAT 99
[2021-12-13] MEDS: MEROPENEM 1 GM in SODIUM CHLORIDE 0.9% 100 ML IV (02:07)
[2021-12-13] MEDS: HYDROCODONE/ACET 5/325 TABLET 1 TAB PO ×2 (06:50→20:52)
[2021-12-13 07:00] VITALS: O2SAT 98
[2021-12-13 07:02] LABS: Add Manual Diff / Slide Review NO; Basophils Absolute Auto 100 /uL (0-100); Basophils Percent Auto 1.3 % (0-2); Eosinophils Absolute Auto 400 /uL (0-450); Hematocrit 27.4 % (41-53); Hemoglobin 9.4 g/dL (13.5-17.5); Lymphocytes Absolute Auto 1500 /uL (1100-4500); Lymphocytes Percent Auto 21.1 % (25-40); Mean Corpuscular HGB Conc 34.3 % (30-36); Mean Corpuscular Hemoglobin 28.5 PG (26-34); Mean Corpuscular Volume 82.9 fL (80-100); Monocytes Absolute Auto 800 /uL (0-900); Monocytes Percent Auto 11.2 % (3-14); Neutrophils Absolute Auto 4400 /uL (1500-7000); Neutrophils Percent Auto 60.4 % (50-75); Platelet Count 271 X10^3/uL (150-400); Red Blood Cell Count 3.31 X10^6/uL (4.5-5.9); Red Cell Distribution Width 15.1 % (11.6-14.8); White Blood Cell Count 7.3 X10^3/uL (4.5-11.0)
[2021-12-13 07:10] LABS: BUN Creatinine Ratio 14.3 (6-22); Blood Urea Nitrogen 12 mg/dL (9-20); Calcium 8.4 mg/dL (8.4-10.2); Carbon Dioxide 23 mmol/L (22-32); Chloride 94 mmol/L (98-107); Estimated Glomerular Filt Rate > 60 mL/min (>60); Glucose 89 mg/dL (80-110); HEMOLYSIS < 15 (0-50); Potassium 4.3 mmol/L (3.4-5.1); Sodium 123 mmol/L (137-145)
[2021-12-13] MEDS: MEROPENEM 500 MG in SODIUM CHLORIDE 0.9% 100 ML 200 MG IV ×3 (09:02→20:53)
[2021-12-13] MEDS: HEPARIN 5,000 UNIT/ML VIAL 5000 UNIT SUBCUT ×2 (09:03→20:53)
[2021-12-13] MEDS: TAMSULOSIN 0.4 MG CAPSULE 0.8 MG PO (09:03)
--- NOTE | 2021-12-13 11:04 | CM.DANOTE ---
DCP: Case received, EMR reviewed and met with patient. Patient has been sleeping, but did speak to patient's ex-, Glo Mane. Introduced self and role. Was able to obtain information regarding patient's recent hospital visit and baseline needs at home, as well as current disciplines. DCP assessment completed with information currently available. Patient is an 81 year old male who admitted yesterday afternoon to the care of the hospitalist team. PCP: Dr. Mayberry. Payer: confirmed: Medicare/[employer]. Patient came to the hospital via ambulance secondary to having concerned that his mind isn't working, and having hallucinations. Patient had mentioned, he saw the ceiling sprinkler swinging around the ceiling of his home. Patient holds diagnosis of hyperactive encephalopathy, etiology not clear, but could be medication related. Patient is currently under [facility] for home medications, and confirmed that patient is also under [facility]. Patient was recently discharged from [facility] with PICC line in place secondary to having revascularization of peripheral vascular disease in his left leg with poor healing. Spoke to Heber in Care Management at [facility]. He stated that patient was not admitted, was treated as outpatient, had his procedure at [facility]. He did fax over some medication records to review. Patient is on IV ABO secondary to osteomyelitis. Spoke to patient's ex-, Glo. Confirmed that patient resides in [facility]. She has been staying with him, and she indicated, he is mostly wheel-chair bound. Stated that home health was supposed to start, but he ended up in the hospital. She also stated, he has a refrigerator full of medications from [facility], wanting to know if that will change, or what's wrong with patient. Let know that hospitalist can provide additional information. Confirmed with Maninder at [facility] that patient is under their services, but did not get to do start of care, since he ended up at [facility]. She indicated, patient may need a new face to face. Spoke to Jessica, pharmacist at [facility] and gave her an update. Patient had been on Cefepime through their services, let her know that patient is currently on Mirapenum, but uncertain if he will go home with this. Let her know that this DC Manager Performance will update them. P: DCP to continue to follow. Plan is home with [facility]. He was ordered RN, P.T, and O.T, and will need these services. Will also update [facility], as medication may change. Christine Dailey RN/Printing Sales Representative Discharge Planning/Care Management Advanced directive, confirm from FAMILY Start: 12/12/21 14:00 Freq: Q24H Status: Active Protocol: Document 12/12/21 14:00 EM (Rec: 12/12/21 14:01 EM [id number]) Advance Directive, confirm on record Time 14:01 Person contacted family Copy received No CM Discharge Assessment Start: 12/13/21 10:59 Freq: Status: Active Protocol: Document 12/13/21 10:59 VM (Rec: 12/13/21 11:04 [id number]) Discharge Planning Assessment Assigned Pca Christine Dailey RN/Printing Sales Representative Advance Directives? Yes Advance Directives on File No History Provided By Patient,Medical Record Prior Living Arrangements House Household Members spouse Type of transporation used prior to Relies on Others admit Is patient alert and oriented? Yes Needs Assistance With Meal Prep,Managing Medications ,Home Chores / Shopping Caregiver for Another No DME Already Rented / Owned Wheelchair Patient/Family Preference Home with Home Health Comment Patient was supposed to start with [facility]. Comment Patient lives alone, but ex- is staying with him temporarily, as they have another home. Discharge Plan Home with Home Health [facility] IV Therapy Transportation Arrangement Through [facility]. Referrals Initiated Other Additional Comment Will update [facility], and will collaborate with [facility] if there are medication changes. Review Status In Process Next Review Type Continued Stay Review Discharge Planning/Care Management Advanced directive, confirm from FAMILY Start: 12/12/21 14:00 Freq: Q24H Status: Active Protocol: Document 12/12/21 14:00 EM (Rec: 12/12/21 14:01 EM [id number]) Advance Directive, confirm on record Time 14:01 Person contacted family Copy received No CM Discharge Assessment Start: 12/13/21 10:59 Freq: Status: Active Protocol: Document 12/13/21 10:59 VM (Rec: 12/13/21 11:04 [id number]) Discharge Planning Assessment Assigned Pca Christine Dailey RN/Printing Sales Representative Advance Directives? Yes Advance Directives on File No History Provided By Patient,Medical Record Prior Living Arrangements House Household Members spouse Type of transporation used prior to Relies on Others admit Is patient alert and oriented? Yes Needs Assistance With Meal Prep,Managing Medications ,Home Chores / Shopping Caregiver for Another No DME Already Rented / Owned Wheelchair Patient/Family Preference Home with Home Health Comment Patient was supposed to start with [facility]. Comment Patient lives alone, but ex- is staying with him temporarily, as they have another home. Discharge Plan Home with Home Health [facility] IV Therapy Transportation Arrangement Through [facility]. Referrals Initiated Other Additional Comment Will update [facility], and will collaborate with [facility] if there are medication changes. Review Status In Process Next Review Type Continued Stay Review
[2021-12-13 11:06] VITALS: O2SAT 98
[2021-12-13 12:54] VITALS: BP 126/62; PULSE 89; RESP 16; TEMP 36.9; O2SAT 99
[2021-12-13] MEDS: SODIUM CHLORIDE 0.9% 1,000 ML 84 ML IV (14:47)
--- NOTE | 2021-12-13 16:04 | PM.PN.1 ---
Subjective Subjective Date Patient Seen: 12/13/21 Time Patient Seen: 08:00 Interval history: Patient feels he is getting close to his baseline. He no longer has restless legs, feels jittery, confused. Exam Vital Signs (past 8 hours): - 12/13/21 11:06 12/13/21 12:54 Temperature 98.5 F Pulse Rate 89 Respiratory Rate 16 Blood Pressure 126/62 Pulse Oximetry 98 99 Oxygen Delivery Method Room Air Oxygen Flow Rate 0 Narrative Exam Narrative: GEN: no acute distress HEENT: moist mucous membranes NECK: trachea midline, no JVD CV: regular rate and rhythm, no murmurs PULM: clear bilaterally, no wheezes, rhonchi, rales ABD: soft, nontender, nondistended, no organomegaly, normal bowel sounds EXT: warm and well perfused with no edema NEURO: awake, alert oriented, no focal deficits Objective Labs Result Diagrams: 12/13/21 06:45 12/13/21 06:45 Labs: Laboratory Results - last 24 hr 12/13/21 12/13/21 06:45 06:45 WBC 7.3 RBC 3.31 L Hgb 9.4 L Hct 27.4 L MCV 82.9 MCH 28.5 MCHC 34.3 RDW 15.1 H Plt Count 271 Neut % (Auto) 60.4 Lymph % (Auto) 21.1 L [place] % (Auto) 11.2 Eos % (Auto) 6.0 H Baso % (Auto) 1.3 Neut # (Auto) 4400 Lymph # (Auto) 1500 [place] # (Auto) 800 Eos # (Auto) 400 Baso # (Auto) 100 Sodium 123 L Potassium 4.3 Chloride 94 L Carbon Dioxide 23 BUN 12 Creatinine 0.84 Estimated GFR > 60 BUN/Creatinine Ratio 14.3 Glucose 89 Calcium 8.4 PFSH Medical History BPH (benign prostatic hyperplasia) Erectile dysfunction Gait instability Hyponatremia Left foot pain Neck mass Toenail fungus Uses walker Well adult exam Surgical History Anesthesia History of cataract removal with insertion of prosthetic lens Social History household members: spouse Smoking Status: Current every day smoker Assessment & Plan Assessment & Plan narrative: Mr. Mane is an 81M with H PVD s/p recent L fem-pop bypass, currently on treatment for osteomyelitis who presents with hyperactive encephalopathy. 1. Hyperactive encephalopathy -etiology not clear, but suspicion is high that it is related to high dose cefepime -other possibility include withdrawal from stopping gabapentin -MRI head with no acute process -for now stop cefepime, and switch to meropenem 1gm q8 -request records from OSH to determine if antibiotics were ordered based on culture results, some records have returned but yet to find why patient was prescribed cefepime -CT head with no acute process, only air fluid level in sinus -sodium low at 125, but has been low chronically at this level for months, so suspect this is not the cause, but will monitor 2. Hyponatremia -chronic, near his baseline -on admission was 125, now 123 -suspect component of SIADH, as patient appears clinically euvolemic -monitor daily, if drops will need to start intervention 3. Osteomyelitis -stop cefepime, ordered meropenem for now -attempting to get outpatient records to determine why needs cefepime, old culture results -will need to follow back with ID once discharge 4. PVD s/p L fem-pop bypass -graft site looks well healed -pain meds PRN 5. BPH -continue flomax, finasteride Time Spent With Patient Critical Care time: I spent a total of [] minutes of critical care time on this patient's care today; this time is exclusive of procedural time.
[2021-12-13 19:00] VITALS: BP 132/56; PULSE 73; RESP 14; TEMP 36.6; O2SAT 97
[2021-12-13 19:35] VITALS: PULSE 73; RESP 16; O2SAT 97
[2021-12-14] MEDS: MEROPENEM 500 MG in SODIUM CHLORIDE 0.9% 100 ML 200 MG IV ×2 (02:14→08:06)
[2021-12-14] MEDS: SODIUM CHLORIDE 0.9% 1,000 ML 84 ML IV (04:01)
[2021-12-14 04:13] VITALS: BP 142/62; PULSE 79; RESP 14; TEMP 36.9; O2SAT 97
[2021-12-14] MEDS: HYDROCODONE/ACET 5/325 TABLET 1 TAB PO (04:14)
[2021-12-14 04:26] LABS: Hematocrit 26.5 % (41-53); Mean Corpuscular HGB Conc 34.1 % (30-36); Mean Corpuscular Hemoglobin 28.5 PG (26-34); Mean Corpuscular Volume 83.6 fL (80-100); Platelet Count 251 X10^3/uL (150-400); Red Blood Cell Count 3.17 X10^6/uL (4.5-5.9); Red Cell Distribution Width 15.3 % (11.6-14.8); White Blood Cell Count 7.5 X10^3/uL (4.5-11.0)
[2021-12-14 04:37] LABS: BUN Creatinine Ratio 15.2 (6-22); Blood Urea Nitrogen 12 mg/dL (9-20); Calcium 8.4 mg/dL (8.4-10.2); Carbon Dioxide 26 mmol/L (22-32); Chloride 99 mmol/L (98-107); Estimated Glomerular Filt Rate > 60 mL/min (>60); Glucose 93 mg/dL (80-110); HEMOLYSIS < 15 (0-50); Potassium 4.3 mmol/L (3.4-5.1); Sodium 126 mmol/L (137-145)
[2021-12-14] MEDS: TAMSULOSIN 0.4 MG CAPSULE 0.8 MG PO (08:07)
[2021-12-14] MEDS: HEPARIN 5,000 UNIT/ML VIAL 5000 UNIT SUBCUT (08:07)
[2021-12-14 08:39] VITALS: O2SAT 96
--- NOTE | 2021-12-14 11:18 | CM.DPC ---
Addendum entered by Christine Dailey R.N. 12/14/21 14:50: Received prescription for patient's antibiotic, will be back on the Cefapime, 2 grams q 12 hours. Updated Chance at [facility], faxed over prescription, and called [facility], updated [facility], via message, and faxed her over orders, face to face, DC Summary. Plan is for patient to discharge home today, his is in the room. Addendum entered by Christine Dailey R.N. 12/14/21 13:29: Hospitalist is working on getting patient discharged on his antibiotic. Patient was on Cefapime, now he is on Merapenum. Patient may be going back to his original medication, hospitalist will see about decreasing the dose. Patient does have medication available, but may need to have dose change. Let Chance at [facility] know that as soon as hospitalist completes RX, will give update him. Addendum entered by Christine Dailey R.N. 12/14/21 12:23: Met with patient in his room. He is alert and oriented, pleasant. He is hoping to go home today, this will depend upon getting his medication ordered if he stays on Mirapenum. Patient indicated, he is mostly in his wheel-chair because of his foot. Let patient know that as soon as the antibiotic is identified that he goes on, will update [facility], and will update [facility]. Original Note: DCP Cont: Patient has been sleeping. Discussed patient during team rounds. Have a different hospitalist today, Dr. Arreola. Let him know that patient is getting services with [facility], was getting Cefipime, but is now on Mirapenum. Spoke to Chance at [facility] and let him know this. Hospitalist is not sure if patient will be ready for discharge today. Will need a new face to face for [facility], as they were not able to open. P: DCP to continue to follow, and will need to find out if patient will be going home on Mirapenum. Christine Dailey RN/Mobile Practice Lead
[2021-12-14 13:12] VITALS: BP 130/63; PULSE 72; RESP 19; TEMP 37.3; O2SAT 99
--- NOTE | 2021-12-14 14:20 | P.DS_ITS ---
History of Present Illness History of Present Illness Date Patient Seen: 12/14/21 Chief complaint: crawling out of his skin Narrative: History of Present Illness Date Patient Seen: 12/12/21 Time Patient Seen: 18:00 Chief complaint: crawling out of his skin Narrative: Mr. Mane is an 81M with PMH PVD s/p L fem-pop, osteomyelitis of his extremity for which he is receiving IV antibiotics through a PICC. He has been at home and for the last few days has had multiple symptoms. He is somewhat erratic in his story, but he has noted he has become confused, like my mind isn't working He has noted hallucinations, during the interview he noted earlier that he saw the ceiling sprinkler swinging around the ceiling. He has also noted jitteriness in mostly his hands and feet. He feels his mind is racing. He denies fevers/chills. He denies any new medications aside from antibiotics with cefepime for his osteomyelitis. He has been prescribed gabapentin and he can not clearly state how much he takes. He has no headache, lateralizing weakness, nausea/vomiting/diarrhea. He has no dysuria. No cough/sob. In the ED workup was done, vitals notable for elevated blood pressure. Labs notable for WBC 8.2, hgb 9.2, plts 257. Na 125, creatinine 0.85. TSH normal. UA negative. UDS negative. Ammonia negative. COVID negative. CT head shows air- fluid level in the sinus. By the time he got to the floor he was feeling improved. Discharge Providers Provider Date of admission: 12/12/21 12:51 Discharge Date: 12/14/21 Primary care physician: Hany Mayberry DO Consults: 12/14/21 14:16 Consult to Home Health Routine Comment: Reason For Exam: Home Health RN, P.T, O.T. Discharge provider: Rajendra Duff DO Summary Hospital Course Discharge Diagnosis: METABOLIC ENCEPHALOPATHY. LIKELY SECONDARY TO HYPONATREMIA. OSTEOMYELITIS. CONTINUE CEFEPIME POSSIBLE MODERATE PROTEIN DEFICIENCY MALNUTRITION BPH. CONTINUE HOME MEDS PHYSICAL DEBILITY/ DECONDITIONING. 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 DISCHARGED ON SODIUM TABLET Hospital Course: THIS IS A 81-YEAR-OLD MALE ADMITTED TO THE HOSPITAL WITH CONFUSION. THIS WAS LIKELY MULTIFACTORIAL. I SUSPECT METABOLIC ENCEPHALOPATHY SECONDARY TO HYPONATREMIA. SODIUM HAS BEEN IMPROVING SINCE ADMISSION. PATIENT WILL BE DISCHARGED ON SODIUM TABLETS AT HE IS REQUESTING TO LEAVE THE HOSPITAL TODAY. ALSO HIS CHANGE IN MENTATION COULD HAVE BEEN ACUTE PSYCHOSIS SECONDARY TO UNDIAGNOSED DEMENTIA. THIS COULD FURTHER BE EVALUATED OUTPATIENT BY NEUROLOGY IF INDICATED. THE ETIOLOGY OF PATIENT DECREASED TO THE LEVEL IS UNCLEAR HE IS NOT ON A DIABETIC THIS COULD BE RELATED TO DECREASED ORAL INTAKE VERSUS POSSIBLE BEER POTOMANIA NOT SURE OF HISTORY OF ETOH ABUSE IN ANY CASE, PATIENT WILL BE DISCHARGED ON SODIUM TABLET HE ALSO WILL BE INSTRUCTED TO MAINTAIN A FLUID RESTRICTION OF 15-1800 CC DAILY WHICH WOULD INCLUDE ALL FLUID INTAKES A 24 HOUR INTERVAL. PATIENT WILL BE CONTINUE ON CEFEPIME I SUSPECT THIS HAS NOT BEEN TO CAUSE O F HIS CONFUSION NO INDICATION TO SWITCH ANTIBIOTIC AT THIS TIME. ADDITIONAL MANAGEMENT WILL BE DEFERRED TO OUTPATIENT PROVIDERS ACTIVITIES TOLERATED PER PRIOR TO ADMISSION REGULAR DIET. HIGH PROTEIN RECOMMENDED FOLLOW-UP WITH PRIMARY CARE PHYSICIAN WITHIN 1 2 WEEKS FLUID RESTRICTION OF 1500 TO 1800 CC DAILY AVOID TOBACCO PRODUCTS AVOID ALCOHOL FOLLOW-UP Status at Discharge Cognitive/behavioral status at discharge: oriented Functional status at discharge: wheelchair bound Overall status at discharge: patient is back to baseline Time Spent with Patient Time spent: Greater than 30 minutes Exam Vital Signs (past 8 hours): - 12/14/21 08:39 12/14/21 13:12 Temperature 99.1 F Pulse Rate 72 Respiratory Rate 19 Blood Pressure 130/63 Pulse Oximetry 96 99 Oxygen Delivery Method Room Air Oxygen Flow Rate 0 Narrative Exam Narrative: NO ACUTE DISTRESS. PATIENT IS ALERT ORIENTED X3. VITAL SIGNS STABLE HEAD ATRAUMATIC NORMOCEPHALIC NECK : SUPPLE WITHOUT ADENOPATHY NO CAROTID BRUITS EYE: EOMI, PERRLA, NORMAL CONJUNCTIVA; NO JAUNDICE CHEST: REGULAR RATE. NO RUBS. PMI IS NON DISPLACED. PULMONARY: DECREASED BS OVER THE BASES. MILD BIBASILAR CRACKLES NOTED; NO INCREASED DULLNESS TO PERCUSSION ABDOMEN: SOFT. NONTENDER. NONDISTENDED. BOWEL SOUNDS ARE PRESENT IN ALL 4 QUADRANTS. NO MASS. EXTREMITIES: NO EDEMA.. NO CYANOSIS CLUBBING NOTED. NEURO: CRANIAL NERVES 2-12 GROSSLY INTACT. NO FOCAL NEUROLOGICAL DEFICIT NOTED. MSK: NORMAL RANGE OF MOTION FOR AGE. NO JOINT EFFUSION.. POOR MUSCULATURE SKIN: NORMAL FOR ETHNICITY; NO ECCHYMOSIS. NO LESION. GOOD TURGOR.; NO RA SHES : NORMAL EXTERNAL GENITALIA. VALD[facility]IN[facility] CATHETER IN PLACE PSYCH : APPROPRIATE MOOD AND AFFECT. ALERT AWAKE ORIENTED X3 Objective Labs Result Diagrams: 12/14/21 04:15 12/14/21 04:15 Labs: Laboratory Results - last 24 hr 12/14/21 12/14/21 04:15 04:15 WBC 7.5 RBC 3.17 L Hgb 9.0 L Hct 26.5 L MCV 83.6 MCH 28.5 MCHC 34.1 RDW 15.3 H Plt Count 251 Sodium 126 L Potassium 4.3 Chloride 99 Carbon Dioxide 26 BUN 12 Creatinine 0.79 Estimated GFR > 60 BUN/Creatinine Ratio 15.2 Glucose 93 Calcium 8.4 PFSH Medical History BPH (benign prostatic hyperplasia) Erectile dysfunction Gait instability Hyponatremia Left foot pain Neck mass Toenail fungus Uses walker Well adult exam Surgical History Anesthesia History of cataract removal with insertion of prosthetic lens Social History household members: spouse Smoking Status: Current every day smoker Discharge Plan Discharge Plan Patient Disposition: Home Nursing Discharge Comment: PLEASE DC [facility] PRIOR TO DISPOSITION ACTIVITIES TOLERATED PLEASE INSTRUCT PATIENT ON FLUID RESTRICTION. 1500-1800CC FLUID ALLOWED DAILY ONLY Discharge orders & Medications Prescriptions: New cefepime 2 gram Recon Soln 2 gm IV Q12H Qty: 80 0RF sodium chloride 1 gram tablet 1,000 mg PO TID Qty: 60 0RF Continued tamsulosin [Flomax] 0.4 mg capsule 0.8 mg PO DAILY Qty: 180 3RF finasteride 5 mg tablet See Rx Instructions .ROUTE .COMPLEX Qty: 30 2RF Dose Instruction: TAKE 1 TABLET BY MOUTH BEDTIME Rx Instructions: TAKE 1 TABLET BY MOUTH BEDTIME oxazepam 15 mg capsule See Rx Instructions .ROUTE .COMPLEX Qty: 90 1RF Dose Instruction: TAKE 1 CAPSULE BY MOUTH BEDTIME NEEDED FOR SLEEP Rx Instructions: TAKE 1 CAPSULE BY MOUTH BEDTIME NEEDED FOR SLEEP sildenafil (pulm.hypertension) 20 mg tablet 20 mg PO DAILY PRN (Reason: sexual activity) Qty: 50 5RF Rx Instructions: Take 3-5 p.o. 45 minutes prior to sexual activity. Maximum dose per day gabapentin 100 mg capsule 100 mg PO BEDTIME PRN (Reason: pain, mild) Qty: 30 0RF diclofenac sodium [Voltaren Arthritis Pain] 1 % gel 2 g topical QID Qty: 100 1RF Rx Instructions: apply to single elbow, wrist or hand; for hand includes palm/fingers/back of hand terbinafine HCl 250 mg tablet 250 mg PO DAILY Qty: 90 1RF Discontinued cephalexin 500 mg capsule 500 mg PO TID Qty: 30 0RF sulfamethoxazole-trimethoprim [Bactrim DS] 800-160 mg tablet 1 tab PO BID Qty: 10 0RF No Action (DME) Disabled parking permit Qty: 1 0RF Dose Instruction: As directed Rx Instructions: Pt unable to walk more than 200 feet without stopping. Follow up/Referrals: Hany Mayberry, [Primary Care Provider] - Discharge Data Primary Care Provider: Hany Mayberry
--- NOTE | 2021-12-14 16:45 | PC.NURSE ---
Discharge Note Patient A&O, VSS, RA. No complaints of pain/discomfort. Avery catheter removed per MD order, patient refusing to void prior to discharge, states retention due to being in the hospital and will pee like a race horse when he gets home. MD updated, per MD patient can follow-up with home health. PICC left intact, patient with home IV antibiotics. Discharge packet reviewed with patient and Glo, medications reviewed with pharmacist and patient. All questions concerns addressed regarding new medications and fluid restriction. Patient able to dress self, patient belongings given to Glo. Patient taken down via wheelchair by family friend.
== END 2021-12-14 16:00 | disposition home or self-care (01) | DRG 640 ==
LOC: ED 12:34 → AC 12-13 09:37
PROVIDERS: Emergency Medicine; Admitting Provider Internal Medicine; Emergency Provider Emergency Medicine; Family Provider Family Medicine; PCP Family Medicine; Referring Provider Emergency Medicine; Visit Provider Internal Medicine
DX: E87.1 Hypo-osmolality and hyponatremia (principal); G93.41 Metabolic encephalopathy; M86.9 Osteomyelitis, unspecified; I73.9 Peripheral vascular disease, unspecified; N40.0 Benign prostatic hyperplasia without lower urinary tract symptoms; B35.1 Tinea unguium; F17.200 Nicotine dependence, unspecified, uncomplicated; Z98.890 Other specified postprocedural states; Z20.822 Contact with and (suspected) exposure to COVID-19
CPT/HCPCS: 36415; 36592; 51798; 70450; 70551; 80048; 80053; 80305; 81001; 82140; 83735; 84443; 85025; 85027; 87635; 93005; 94760; 96374; 96376; 99284; C9803; J1644; J2060; J2185

== ENCOUNTER 2022-01-11 01:54 | Emergency (ER) | payer MEDICARE, OTHER, SELFPAY ==
[2021-12-12 13:58] VITALS: BMI 19.3
--- NOTE | 2022-01-11 02:09 | ED.GENADULT ---
HPI - General Adult General Chief complaint: Neuro Symptoms/Deficit Stated complaint: HAVING THE SHAKES BAD Time Seen by Provider: 01/11/22 01:59 History of Present Illness HPI narrative: 81-year-old gentleman with a history of peripheral artery disease, hypertension, BPH, underwent open left-sided femoral popliteal bypass surgery at [facility] in early November. Apparently developed an ulceration of the left heel with concern for developing osteomyelitis and has been on IV antibiotics and has also been seen [facility]. Currently has a PICC line in place and comes in complaining of shaking chills without fever that have been progressively worse. He had been having diarrhea and his IV antibiotics via PICC line have been discontinued for the past 4 days. His wound does seem to be healing nicely with revascularization of the left lower extremity. Notes from Infectious Disease consultation indicate that he had been on cefepime IV and it did seem to cause increased confusion as well as diarrhea. Infectious Disease and Podiatry physicians collaborated and decided that ciprofloxacin orally would be most appropriate for 14 days beginning on January 07, when IV cefepime was discontinued. Stool sample from diarrhea associated with the cefepime did not show Clostridium difficile. Patient has had recurrent episodes of hyponatremia associated with confusion and reports sodiums below 110 with hospital admission. Most recently was admitted 1 month ago with confusion presumably secondary to sodium level of 125. He was discharged home with instructions to take sodium tablets and free water restriction up to 1800 cc daily. Recent sodium levels for essentialy the last 6 months of consistently been in the 124-127 level. This evening he had increasing shaking, no fever no overt chills no dramatic change to cognitive levels. Because he has had some which issues with hyponatremia and confusion within the last few weeks to months they came in for further evaluation. Related Data Previous Rx's Medication Instructions Recorded Disabled parking permit #1 ea 12/27/17 diclofenac sodium 1 % topical gel 2 g topical QID #100 grams 06/16/20 (Voltaren Arthritis Pain) tamsulosin 0.4 mg capsule (Flomax) 0.8 mg PO DAILY urinary frequency 10/02/20 #180 caps finasteride 5 mg tablet See Rx Instructions .Route 06/19/21 .COMPLEX #30 tabs oxazepam 15 mg capsule See Rx Instructions .Route 07/08/21 .COMPLEX #90 caps terbinafine HCl 250 mg tablet 250 mg PO DAILY #90 tabs 08/05/21 sildenafil (pulm.hypertension) 20 20 mg PO DAILY PRN sexual activity 08/06/21 mg tablet #50 tabs gabapentin 100 mg capsule 100 mg PO BEDTIME PRN pain, mild 10/26/21 #30 caps aspirin 81 mg tablet,delayed 162 mg PO DAILY #120 tabs 12/14/21 release cefepime 2 gram solution for 2 gm IV Q12H #80 ea 12/14/21 injection ferrous sulfate 325 mg (65 mg 325 mg PO BID #120 tabs 12/14/21 iron) tablet rosuvastatin 20 mg tablet (Crestor) 20 mg PO DAILY #60 tabs 12/14/21 sodium chloride 1 gram tablet 1,000 mg PO BID #60 tabs 01/07/22 Allergies Allergy/AdvReac Type Severity Reaction Status Date / Time codeine AdvReac Mild ABD Verified 10/05/21 15:06 PAIN/GI UPSET Review of Systems Review of Systems Narrative: Remainder of complete review of systems is otherwise unremarkable except for that included in the HPI. Patient History Medical History BPH (benign prostatic hyperplasia) Erectile dysfunction Gait instability Hyponatremia Left foot pain Neck mass Toenail fungus Uses walker Well adult exam Surgical History Anesthesia History of cataract removal with insertion of prosthetic lens Social History household members: spouse Smoking Status: Current every day smoker Smoking Status: Current every day smoker alcohol intake frequency: 0-2 drinks per day Substance Use Type: does not use Exam Initial Vital Signs Initial Vital Signs: Vital Signs Temperature 98.5 F 01/11/22 02:11 Pulse Rate 84 01/11/22 02:11 Respiratory Rate 17 01/11/22 02:11 Blood Pressure 163/81 H 01/11/22 02:11 Pulse Oximetry 97 01/11/22 02:11 Oxygen Delivery Method 01/11/22 02:11 General: Thin but otherwise Healthy appearing, in no acute distress. Mild psychomotor agitation, history is supplemented by his HEENT: Moist mucous membranes, normal sclera with reactive pupils, Neck: No JVD, supple Respiratory: Lungs are clear to auscultation, no wheezing no rales no rhonchi. Full and symmetrical air movement Cardiac: Regular rate and rhythm no murmurs no bruits Abdomen: Soft, nontender, good bowel tones, no flank pain Skin: Warm and dry, no rashes Neurologic: Grossly neurologically intact with no obvious asymmetries or abnormalities Extremities: Left fem-pop bypass scar is healed nicely. The wound to the lateral aspect of the left foot is healing beautifully with a small Band-Aid covering the wound only at this time. Well perfused Psych: Cooperative, appropriate insight and affect Course Orders Ordered: ED Orders 01/11/22 02:10 Blood Culture Stat Complete Blood Count AUTO DIFF Stat Comprehensive Metabolic Panel Stat 01/11/22 02:11 XR chest 1V Stat Lactate (Lactic Acid) Stat Magnesium Stat Procalcitonin Stat Troponin I Stat Urinalysis and Microscopic Stat 01/11/22 02:27 COVID19 -Nasal RAPID/Pre-Proc Stat Vital Signs Vital signs: Vital Signs - 8 hr 01/11/22 02:11 Temperature 98.5 F Pulse Rate 84 Respiratory Rate 17 Blood Pressure 163/81 H Pulse Oximetry 97 Oxygen Delivery Method Room Air Medical Decision Making Lab Data Result diagrams: 01/11/22 02:20 01/11/22 02:20 Labs: Lab Results 01/11/22 01/11/22 01/11/22 Range/Units 02:15 02:20 02:20 WBC 8.1 (4.5-11.0) X10^3/uL RBC 3.82 L (4.5-5.9) X10^6/uL Hgb 10.6 L (13.5-17.5) g/dL Hct 31.1 L (41-53) % MCV 81.3 (80-100) fL MCH 27.7 (26-34) PG MCHC 34.0 (30-36) % RDW 16.1 H (11.6-14.8) % Plt Count 252 (150-400) X10^3/uL Neut % (Auto) 62.7 (50-75) % Lymph % (Auto) 17.6 L (25-40) % [place] % (Auto) 10.7 (3-14) % Eos % (Auto) 7.8 H (2-4) % Baso % (Auto) 1.2 (0-2) % Neut # (Auto) 5000 (2690-5681) /uL Lymph # (Auto) 1400 (1614-8534) /uL [place] # (Auto) 900 (0-900) /uL Eos # (Auto) 600 H (0-450) /uL Baso # (Auto) 100 (0-100) /uL Sodium 127 L (137-145) mmol/L Potassium 4.2 (3.4-5.1) mmol/L Chloride 97 L (98-107) mmol/L Carbon Dioxide 24 (22-32) mmol/L BUN 14 (9-20) mg/dL Creatinine 0.85 (0.66-1.25) mg/dL Estimated GFR > 60 (>60) mL/min BUN/Creatinine Ratio 16.5 (6-22) Glucose 97 (80-110) mg/dL Lactate (0.7-2.1) mmol/L Calcium 9.0 (8.4-10.2) mg/dL Magnesium (1.6-2.3) mg/dL Total Bilirubin 0.3 (0.2-1.3) mg/dL AST 27 (17-59) IU/L ALT 13 (<50) IU/L Alkaline Phosphatase 95 (38-126) U/L Troponin I (0.01-0.034) ng/mL Total Protein 7.0 (6.3-8.2) g/dL Albumin 3.9 (3.5-5.0) g/dL Globulin 3.1 (1.7-4.1) g/dL Albumin/Globulin Ratio 1.3 (1.0-2.8) Procalcitonin (<0.5) ng/mL Urine Color Urine Appearance Urine pH (4.5-8.0) Ur Specific [place] (1.000-1.035) Urine Protein (Negative) Urine Glucose (UA) (Negative) g/dL Urine Ketones (NEGATIVE) Urine Occult Blood (Negative) Urine Nitrate (Negative) Urine Bilirubin (NEGATIVE) Urine Urobilinogen (0.2) E.U./dL Ur Leukocyte Esterase (NEGATIVE) Urine RBC (0-5/HPF) Urine WBC (0-5/HPF) Ur Squamous Epith Cells (0-5/HPF) Urine Bacteria (None) Hyaline Casts (None) Ur Culture Indicated? SARS-CoV-2 (PCR) Negative (Negative) 01/11/22 01/11/22 01/11/22 Range/Units 02:20 02:20 02:45 WBC (4.5-11.0) X10^3/uL RBC (4.5-5.9) X10^6/uL Hgb (13.5-17.5) g/dL Hct (41-53) % MCV (80-100) fL MCH (26-34) PG MCHC (30-36) % RDW (11.6-14.8) % Plt Count (150-400) X10^3/uL Neut % (Auto) (50-75) % Lymph % (Auto) (25-40) % [place] % (Auto) (3-14) % Eos % (Auto) (2-4) % Baso % (Auto) (0-2) % Neut # (Auto) (2469-4431) /uL Lymph # (Auto) (7522-9214) /uL [place] # (Auto) (0-900) /uL Eos # (Auto) (0-450) /uL Baso # (Auto) (0-100) /uL Sodium (137-145) mmol/L Potassium (3.4-5.1) mmol/L Chloride (98-107) mmol/L Carbon Dioxide (22-32) mmol/L BUN (9-20) mg/dL Creatinine (0.66-1.25) mg/dL Estimated GFR (>60) mL/min BUN/Creatinine Ratio (6-22) Glucose (80-110) mg/dL Lactate 0.8 (0.7-2.1) mmol/L Calcium (8.4-10.2) mg/dL Magnesium 1.9 (1.6-2.3) mg/dL Total Bilirubin (0.2-1.3) mg/dL AST (17-59) IU/L ALT (<50) IU/L Alkaline Phosphatase (38-126) U/L Troponin I < 0.012 (0.01-0.034) ng/mL Total Protein (6.3-8.2) g/dL Albumin (3.5-5.0) g/dL Globulin (1.7-4.1) g/dL Albumin/Globulin Ratio (1.0-2.8) Procalcitonin 0.05 (<0.5) ng/mL Urine Color Yellow Urine Appearance Clear Urine pH 7.0 (4.5-8.0) Ur Specific [place] 1.015 (1.000-1.035) Urine Protein 1+ H (Negative) Urine Glucose (UA) Negative (Negative) g/dL Urine Ketones Negative (NEGATIVE) Urine Occult Blood Trace-lysed (Negative) Urine Nitrate Negative (Negative) Urine Bilirubin Negative (NEGATIVE) Urine Urobilinogen 0.2 (0.2) E.U./dL Ur Leukocyte Esterase Negative (NEGATIVE) Urine RBC 1-5/hpf (0-5/HPF) Urine WBC None seen (0-5/HPF) Ur Squamous Epith Cells 1-5 /hpf (0-5/HPF) Urine Bacteria Occasional (0-1) (None) Hyaline Casts 0-1/lpf (None) Ur Culture Indicated? Cult not indicated SARS-CoV-2 (PCR) (Negative) MDM Narrative Medical decision making narrative: 81-year-old gentleman with significant medical trials and tribulations with the revascularization, slowly healing but now healed wound as it is getting blood flow to it, side effects with confusion secondary to IV cefepime now on only oral ciprofloxacin and continued issues with moderate hyponatremia have all been contributing. Did have a brief discussion with his regarding possibility of developing dementia. She notes that all of this has developed since the surgery, antibiotics and issues with his sodium levels. We talked about what free water restriction actually looks like. She has been giving him salt tablets and somebody had suggested V8 juice which is an outstanding idea along with [place] soup, both of which have an extraordinary high amount of salt in them. At this time is workup is unremarkable. Has his chronic hyponatremia, there is no evidence of infection, sepsis acute coronary syndrome or alternate explanations that would require hospitalization at this. Findings reviewed with patient and his , questions are answered he is safe for home discharge Discharge Plan Departure Patient Disposition: Home Clinical Impression: Hyponatremia, Episode of shaking Activity Restrictions/Additional Instructions: Thank you for coming in today Your workup has been quite reassuring. I did not find any evidence of overwhelming infection or sepsis. I do not have a full explanation for the shaking episode that you noticed but I do not think that it was chills or rigors related to infection. Your wound continues to look like it is healing appropriately. We discussed increasing sodium intake and free water restriction. Adding V8 juice and [place] Soup are both excellent additions for increasing salt in your diet I wish you the very best as you continue to work through all of these medical issues and I hope very is a light at the end of the tunnel with things returning to normal. Prescriptions: No Action (DME) Disabled parking permit Qty: 1 0RF Dose Instruction: As directed Rx Instructions: Pt unable to walk more than 200 feet without stopping. tamsulosin [Flomax] 0.4 mg capsule 0.8 mg PO DAILY Qty: 180 3RF finasteride 5 mg tablet See Rx Instructions .ROUTE .COMPLEX Qty: 30 2RF Dose Instruction: TAKE 1 TABLET BY MOUTH BEDTIME Rx Instructions: TAKE 1 TABLET BY MOUTH BEDTIME oxazepam 15 mg capsule See Rx Instructions .ROUTE .COMPLEX Qty: 90 1RF Dose Instruction: TAKE 1 CAPSULE BY MOUTH BEDTIME NEEDED FOR SLEEP Rx Instructions: TAKE 1 CAPSULE BY MOUTH BEDTIME NEEDED FOR SLEEP sildenafil (pulm.hypertension) 20 mg tablet 20 mg PO DAILY PRN (Reason: sexual activity) Qty: 50 5RF Rx Instructions: Take 3-5 p.o. 45 minutes prior to sexual activity. Maximum dose per day gabapentin 100 mg capsule 100 mg PO BEDTIME PRN (Reason: pain, mild) Qty: 30 0RF sodium chloride 1 gram tablet 1,000 mg PO BID Qty: 60 0RF diclofenac sodium [Voltaren Arthritis Pain] 1 % gel 2 g topical QID Qty: 100 1RF Rx Instructions: apply to single elbow, wrist or hand; for hand includes palm/fingers/back of hand terbinafine HCl 250 mg tablet 250 mg PO DAILY Qty: 90 1RF cefepime 2 gram Recon Soln 2 gm IV Q12H Qty: 80 0RF rosuvastatin [Crestor] 20 mg tablet 20 mg PO DAILY Qty: 60 0RF aspirin 81 mg tablet,delayed release (DR/EC) 162 mg PO DAILY Qty: 120 0RF ferrous sulfate 325 mg (65 mg iron) tablet 325 mg PO BID Qty: 120 0RF Referrals: Hany Mayberry, DO [Primary Care Provider] -
[2022-01-11 02:11] VITALS: BP 163/81; PULSE 84; RESP 17; TEMP 36.9; O2SAT 97; BMI 20.2
--- NOTE | 2022-01-11 02:11 | DI.RAD.S_ITS ---
PROCEDURE: XR CHEST 1V INDICATIONS: chills/rigors TECHNIQUE: One view of the chest was acquired. COMPARISON: None. FINDINGS: Surgical changes and devices: None. Lungs and pleura: Lungs are clear. No pleural effusions or pneumothorax. Mediastinum: Mediastinal contours appear normal. Heart size is normal. Bones and chest wall: No suspicious bony lesions. Overlying soft tissues appear unremarkable. IMPRESSION: No acute cardiopulmonary disease process. Dictated by: Marina Workman MD, PhD on 01/11/2022 at 7:59 Approved by: Marina Workman MD, PhD on 01/11/2022 at 7:59
[2022-01-11 02:48] LABS: Add Manual Diff / Slide Review NO; Basophils Absolute Auto 100 /uL (0-100); Basophils Percent Auto 1.2 % (0-2); Eosinophils Absolute Auto 600 /uL (0-450); Eosinophils Percent Auto 7.8 % (2-4); Hematocrit 31.1 % (41-53); Hemoglobin 10.6 g/dL (13.5-17.5); Lymphocytes Absolute Auto 1400 /uL (1100-4500); Lymphocytes Percent Auto 17.6 % (25-40); Mean Corpuscular Hemoglobin 27.7 PG (26-34); Mean Corpuscular Volume 81.3 fL (80-100); Monocytes Absolute Auto 900 /uL (0-900); Monocytes Percent Auto 10.7 % (3-14); Neutrophils Absolute Auto 5000 /uL (1500-7000); Neutrophils Percent Auto 62.7 % (50-75); Platelet Count 252 X10^3/uL (150-400); Red Blood Cell Count 3.82 X10^6/uL (4.5-5.9); Red Cell Distribution Width 16.1 % (11.6-14.8); White Blood Cell Count 8.1 X10^3/uL (4.5-11.0)
[2022-01-11 02:54] LABS: Appearance Urine UA CLEAR; Bilirubin Urine UA NEGATIVE (NEGATIVE); Color Urine UA YELLOW; Glucose Urine UA NEGATIVE (Negative); Ketones Urine UA NEGATIVE (NEGATIVE); Leukocyte Esterase Urine UA NEGATIVE (NEGATIVE); Nitrite Urine UA NEGATIVE (Negative); Occult Blood Urine UA TRACE-LYSED (Negative); Protein Urine UA 1+ (Negative); Specific Gravity Urine UA 1.015 (1.000-1.035); Urobilinogen Urine UA 0.2 E.U./dL (0.2)
[2022-01-11 02:57] LABS: Alanine Aminotransferase 13 IU/L (<50); Albumin 3.9 g/dL (3.5-5.0); Albumin Globulin Ratio 1.3 (1.0-2.8); Alkaline Phosphatase 95 U/L (38-126); Aspartate Aminotransferase 27 IU/L (17-59); BUN Creatinine Ratio 16.5 (6-22); Bilirubin Total 0.3 mg/dL (0.2-1.3); Blood Urea Nitrogen 14 mg/dL (9-20); Carbon Dioxide 24 mmol/L (22-32); Chloride 97 mmol/L (98-107); Estimated Glomerular Filt Rate > 60 mL/min (>60); Globulin 3.1 g/dL (1.7-4.1); Glucose 97 mg/dL (80-110); HEMOLYSIS < 15 (0-50); Lactate (Lactic Acid) 0.8 mmol/L (0.7-2.1); Magnesium 1.9 mg/dL (1.6-2.3); Potassium 4.2 mmol/L (3.4-5.1); Sodium 127 mmol/L (137-145)
[2022-01-11 02:58] LABS: COVID19 -Nasal RAPID Negative (Negative)
[2022-01-11 03:01] LABS: RBC Urine 1-5/HPF (0-5/HPF); Squamous Epithelial Cell Urine 1-5 /HPF (0-5/HPF); WBC Urine None Seen (0-5/HPF)
[2022-01-11 03:02] LABS: Bacteria Urine Occasional (0-1); Hyaline Casts Urine 0-1/LPF
[2022-01-11 03:03] LABS: Culture Indicated Urine Cult Not Indicated
[2022-01-11 03:08] LABS: Troponin I < 0.012 ng/mL (0.01-0.034)
[2022-01-11 03:13] LABS: Procalcitonin 0.05 ng/mL (<0.5)
[2022-01-11 04:30] VITALS: BP 114/80; PULSE 96; RESP 18; O2SAT 98
== END 2022-01-11 04:31 | disposition home or self-care (01) ==
PROVIDERS: Emergency Provider Emergency Medicine; Family Provider Family Medicine; PCP Family Medicine
DX: E87.1 Hypo-osmolality and hyponatremia (principal); R25.1 Tremor, unspecified; Z20.822 Contact with and (suspected) exposure to COVID-19
CPT/HCPCS: 36415; 71045; 80053; 81001; 83605; 83735; 84145; 84484; 85025; 87040; 87635; 99283; C9803

== ENCOUNTER 2022-02-11 23:07 | Observation (INO) | payer MEDICARE, OTHER, SELFPAY ==
[2021-12-12 13:58] VITALS: BMI 19.3
[2022-02-11 23:17] VITALS: BP 161/70; PULSE 88; RESP 18; TEMP 37.2; O2SAT 99; BMI 19.1
[2022-02-12] VITALS (13 sets, daily range): BP systolic 137–163; BP diastolic 69–83; PULSE 70–87; RESP 16–19; TEMP 36.7–37.1; O2SAT 93–99; BMI 19.0
--- NOTE | 2022-02-12 02:22 | ED.EXTPRO ---
HPI - Extremity Problem General Chief complaint: Extremity Problem,Nontraumatic Stated complaint: restless leg syndrome Time Seen by Provider: 02/12/22 02:22 Source: patient Mode of arrival: Wheelchair Limitations: no limitations History of Present Illness HPI Narrative: This is an 81-year-old male with history of restless leg, arterial bypass of his lower extremity, iron deficiency anemia and chronic wound which has recently healed and dyslipidemia. Patient presents this evening as his restless legs symptoms have been worsened than typical. Does not take any medication for it, both he and his state that he has not asked his physician about anything for it. Does have some mild memory issues states he is not more confused or altered, patient states he feels like his normal baseline. Denies fevers, chills, no chest pain or shortness of breath. No nausea or vomiting. No new GI or urinary symptoms. He does not have any new pain in his legs, no color changes. Just has this sensation he needs to move them regularly and is more intense than typical. His is concerned as he is had hyponatremia in the past and required hospitalization and would like to recheck his labs today. Patient is allergic to codeine. Related Data Previous Rx's Medication Instructions Recorded Disabled parking permit #1 ea 12/27/17 diclofenac sodium 1 % topical gel 2 g topical QID #100 grams 06/16/20 (Voltaren Arthritis Pain) tamsulosin 0.4 mg capsule (Flomax) 0.8 mg PO DAILY urinary frequency 10/02/20 #180 caps finasteride 5 mg tablet See Rx Instructions .Route 06/19/21 .COMPLEX #30 tabs oxazepam 15 mg capsule See Rx Instructions .Route 07/08/21 .COMPLEX #90 caps terbinafine HCl 250 mg tablet 250 mg PO DAILY #90 tabs 08/05/21 sildenafil (pulm.hypertension) 20 20 mg PO DAILY PRN sexual activity 08/06/21 mg tablet #50 tabs gabapentin 100 mg capsule 100 mg PO BEDTIME PRN pain, mild 10/26/21 #30 caps aspirin 81 mg tablet,delayed 162 mg PO DAILY #120 tabs 12/14/21 release cefepime 2 gram solution for 2 gm IV Q12H #80 ea 12/14/21 injection ferrous sulfate 325 mg (65 mg 325 mg PO BID #120 tabs 12/14/21 iron) tablet rosuvastatin 20 mg tablet (Crestor) 20 mg PO DAILY #60 tabs 12/14/21 sodium chloride 1 gram tablet 1,000 mg PO BID #60 tabs 01/07/22 Allergies Allergy/AdvReac Type Severity Reaction Status Date / Time codeine AdvReac Mild ABD Verified 10/05/21 15:06 PAIN/GI UPSET Review of Systems Review of Systems ROS Unobtainable: All systems reviewed & are unremarkable except as noted in HPI and below Patient History Medical History BPH (benign prostatic hyperplasia) Erectile dysfunction Gait instability Hyponatremia Left foot pain Neck mass Toenail fungus Uses walker Well adult exam Surgical History Anesthesia History of cataract removal with insertion of prosthetic lens Family History (Updated 02/12/22 @ 05:21 by ASAF Fabian) Sister Kidney disease Brother Cancer Social History household members: spouse Smoking Status: Current every day smoker Smoking Status: Current every day smoker alcohol intake frequency: 0-2 drinks per day Substance Use Type: does not use Exam Narrative Exam Narrative: GENERAL: Alert and oriented, elderly male in mild distress. HEENT: Head normocephalic, atraumatic, EOMI, pupils reactive, face symmetric, moist mucous membranes NECK: Supple, full range of motion CARDIOVASCULAR: Regular rate and rhythm without murmurs, rubs or gallops. RESPIRATORY: Breath sounds equal bilaterally, no wheezes rales or rhonchi. ABDOMEN: Soft, nontender. Normoactive bowel sounds all 4 quadrants. No guarding or rebound, rigidity, no mass : No CVA tenderness EXTREMITIES: Normal range of motion, no clubbing or edema. Neurovascularly intact. 5/5 muscle strength. Patient has healed incision on the left inner thigh. No warmth, erythema or skin changes. No swelling. 2+ pulses bilaterally. NEUROLOGICAL: Cranial nerves II through XII grossly intact. Moving all extremities, no tremor. Patient has persistent movement of his extremities which he is in control of but does move frequently. SKIN: Warm, dry, no petechiae, no rashes or lesions. Initial Vital Signs Initial Vital Signs: Vital Signs Temperature 99.0 F 02/11/22 23:17 Pulse Rate 88 02/11/22 23:17 Respiratory Rate 18 02/11/22 23:17 Blood Pressure 161/70 H 02/11/22 23:17 Pulse Oximetry 99 02/11/22 23:17 Oxygen Delivery Method 02/11/22 23:17 Course Orders Ordered: ED Orders 02/12/22 03:00 BMP [Basic Metabolic Panel] Stat CBC Auto Diff [Complete Blood Count AUTO DIFF] Stat 02/12/22 03:45 COVID19 -Nasal RAPID/Pre-Proc Stat 02/12/22 03:55 UA Complete [Urinalysis and Microscopic] Stat 02/12/22 04:07 Education, smoking cessation ONGOING Acetaminophen (Acetaminophen 325 Mg Tablet) 650 mg PO Q6HR PRN PRN Reason: Fever/Mild Pain (1-3) Aspirin (Aspirin Ec 81 Mg Tablet) 162 mg PO DAILY KACIE Enoxaparin Sodium (Enoxaparin 40 Mg/0.4 Ml Syringe) 40 mg SUBCUT DAILY KACIE Ferrous Sulfate (Ferrous Sulfate 325 Mg Tablet) 325 mg PO BIDWM KACIE Finasteride (Finasteride 5 Mg Tablet) 5 mg PO BEDTIME KACIE Gabapentin (Gabapentin 100 Mg Capsule) 100 mg PO BEDTIME PRN PRN Reason: pain, mild Sodium Chloride (Sodium Chloride 1,000 Mg Tablet) 1,000 mg PO BID KACIE Tamsulosin HCl (Tamsulosin 0.4 Mg Capsule) 0.8 mg PO DAILY KACIE Discontinued Medications Sodium Chloride (Hypertonic Saline 3%) 500 mls @ 20 mls/hr IV CONT KACIE Last Admin: 02/12/22 06:06 Dose: Not Given Documented By: MW Lorazepam (Lorazepam 0.5 Mg Tablet) 0.5 mg PO NOW ONE Stop: 02/12/22 02:29 Last Admin: 02/12/22 02:43 Dose: 0.5 mg Documented By: EB Sodium Chloride (Sodium Chloride 1,000 Mg Tablet) 1,000 mg PO NOW ONE Stop: 02/12/22 06:01 Vital Signs Vital signs: Vital Signs - 8 hr 02/11/22 23:17 02/12/22 00:19 02/12/22 00:16 Temperature 99.0 F Pulse Rate 88 77 77 Respiratory Rate 18 19 Blood Pressure 161/70 H 161/73 H Pulse Oximetry 99 98 99 Oxygen Delivery Method Room Air Room Air 02/12/22 00:18 02/12/22 00:18 02/12/22 00:30 Temperature Pulse Rate 77 Respiratory Rate Blood Pressure 161/73 H 159/83 H Pulse Oximetry 98 Oxygen Delivery Method 02/12/22 00:30 02/12/22 01:00 02/12/22 01:01 Temperature Pulse Rate 70 82 82 Respiratory Rate Blood Pressure Pulse Oximetry 97 98 97 Oxygen Delivery Method 02/12/22 01:01 02/12/22 01:30 02/12/22 02:18 Temperature Pulse Rate 87 87 Respiratory Rate Blood Pressure 159/72 H Pulse Oximetry 96 93 Oxygen Delivery Method 02/12/22 04:06 Temperature Pulse Rate Respiratory Rate Blood Pressure Pulse Oximetry 94 Oxygen Delivery Method Room Air MDM - Extremity (Nontraumatic) Lab Data Result diagrams: 02/12/22 03:00 02/12/22 03:00 Labs: Lab Results 02/12/22 02/12/22 02/12/22 Range/Units 03:00 03:00 03:00 WBC 7.3 (4.5-11.0) X10^3/uL RBC 3.80 L (4.5-5.9) X10^6/uL Hgb 10.4 L (13.5-17.5) g/dL Hct 30.9 L (41-53) % MCV 81.3 (80-100) fL MCH 27.3 (26-34) PG MCHC 33.6 (30-36) % RDW 16.3 H (11.6-14.8) % Plt Count 215 (150-400) X10^3/uL Neut % (Auto) 58.1 (50-75) % Lymph % (Auto) 22.9 L (25-40) % Petroleum % (Auto) 10.6 (3-14) % Eos % (Auto) 7.0 H (2-4) % Baso % (Auto) 1.4 (0-2) % Neut # (Auto) 4200 (0327-6283) /uL Lymph # (Auto) 1700 (9716-1818) /uL [place] # (Auto) 800 (0-900) /uL Eos # (Auto) 500 H (0-450) /uL Baso # (Auto) 100 (0-100) /uL Sodium 123 L (137-145) mmol/L Potassium 4.3 (3.4-5.1) mmol/L Chloride 96 L (98-107) mmol/L Carbon Dioxide 22 (22-32) mmol/L BUN 17 (9-20) mg/dL Creatinine 0.78 (0.66-1.25) mg/dL Estimated GFR > 60 (>60) mL/min BUN/Creatinine Ratio 21.8 (6-22) Glucose 93 (80-110) mg/dL Calcium 8.4 (8.4-10.2) mg/dL Magnesium 1.8 (1.6-2.3) mg/dL Urine Color Urine Appearance Urine pH (4.5-8.0) Ur Specific [place] (1.000-1.035) Urine Protein (Negative) Urine Glucose (UA) (Negative) g/dL Urine Ketones (NEGATIVE) Urine Occult Blood (Negative) Urine Nitrate (Negative) Urine Bilirubin (NEGATIVE) Urine Urobilinogen (0.2) E.U./dL Ur Leukocyte Esterase (NEGATIVE) Urine RBC (0-5/HPF) Urine WBC (0-5/HPF) Ur Squamous Epith Cells (0-5/HPF) Urine Bacteria (None) Ur Culture Indicated? SARS-CoV-2 (PCR) (Negative) 02/12/22 02/12/22 Range/Units 03:45 03:55 WBC (4.5-11.0) X10^3/uL RBC (4.5-5.9) X10^6/uL Hgb (13.5-17.5) g/dL Hct (41-53) % MCV (80-100) fL MCH (26-34) PG MCHC (30-36) % RDW (11.6-14.8) % Plt Count (150-400) X10^3/uL Neut % (Auto) (50-75) % Lymph % (Auto) (25-40) % [place] % (Auto) (3-14) % Eos % (Auto) (2-4) % Baso % (Auto) (0-2) % Neut # (Auto) (8797-6898) /uL Lymph # (Auto) (8467-0588) /uL [place] # (Auto) (0-900) /uL Eos # (Auto) (0-450) /uL Baso # (Auto) (0-100) /uL Sodium (137-145) mmol/L Potassium (3.4-5.1) mmol/L Chloride (98-107) mmol/L Carbon Dioxide (22-32) mmol/L BUN (9-20) mg/dL Creatinine (0.66-1.25) mg/dL Estimated GFR (>60) mL/min BUN/Creatinine Ratio (6-22) Glucose (80-110) mg/dL Calcium (8.4-10.2) mg/dL Magnesium (1.6-2.3) mg/dL Urine Color Yellow Urine Appearance Clear Urine pH 6.5 (4.5-8.0) Ur Specific [place] 1.010 (1.000-1.035) Urine Protein Negative (Negative) Urine Glucose (UA) Negative (Negative) g/dL Urine Ketones Negative (NEGATIVE) Urine Occult Blood Negative (Negative) Urine Nitrate Negative (Negative) Urine Bilirubin Negative (NEGATIVE) Urine Urobilinogen 0.2 (0.2) E.U./dL Ur Leukocyte Esterase Trace H (NEGATIVE) Urine RBC 0-1/hpf (0-5/HPF) Urine WBC None seen (0-5/HPF) Ur Squamous Epith Cells 1-5 /hpf (0-5/HPF) Urine Bacteria None seen (None) Ur Culture Indicated? Cult not indicated SARS-CoV-2 (PCR) Negative (Negative) MDM Narrative Medical decision making narrative: 81-year-old male with history of hyponatremia with worsening restless leg. Patient may have some baseline confusion/dementia but after discussion with and patient maybe slightly worsened. No other acute neurologic changes appreciated but sodium today is 123, was 127 in December. Discussed with INFORMATION SECURITY DIRECTOR, hospitalist who accepts for observation. notes that patient has not been restricting his fluids but has been using oral salt tablets, factors that they thought were exacerbating his hyponatremia had been resolved other than fluid not being restricted. Discharge Plan Departure Patient Disposition: Admitted as Observation Clinical Impression: Hyponatremia, Restless leg syndrome Admit Date/Time: 02/12/22 04:07 Admit Provider: Heather Galvez
[2022-02-12] MEDS: LORazepam 0.5 MG TABLET PO (02:43)
[2022-02-12 03:14] LABS: Add Manual Diff / Slide Review NO; Basophils Absolute Auto 100 /uL (0-100); Basophils Percent Auto 1.4 % (0-2); Eosinophils Absolute Auto 500 /uL (0-450); Hematocrit 30.9 % (41-53); Hemoglobin 10.4 g/dL (13.5-17.5); Lymphocytes Absolute Auto 1700 /uL (1100-4500); Lymphocytes Percent Auto 22.9 % (25-40); Mean Corpuscular HGB Conc 33.6 % (30-36); Mean Corpuscular Hemoglobin 27.3 PG (26-34); Mean Corpuscular Volume 81.3 fL (80-100); Monocytes Absolute Auto 800 /uL (0-900); Monocytes Percent Auto 10.6 % (3-14); Neutrophils Absolute Auto 4200 /uL (1500-7000); Neutrophils Percent Auto 58.1 % (50-75); Platelet Count 215 X10^3/uL (150-400); Red Cell Distribution Width 16.3 % (11.6-14.8); White Blood Cell Count 7.3 X10^3/uL (4.5-11.0)
[2022-02-12 03:21] LABS: BUN Creatinine Ratio 21.8 (6-22); Blood Urea Nitrogen 17 mg/dL (9-20); Calcium 8.4 mg/dL (8.4-10.2); Carbon Dioxide 22 mmol/L (22-32); Chloride 96 mmol/L (98-107); Estimated Glomerular Filt Rate > 60 mL/min (>60); Glucose 93 mg/dL (80-110); HEMOLYSIS 15 (0-50); Potassium 4.3 mmol/L (3.4-5.1); Sodium 123 mmol/L (137-145)
[2022-02-12 04:04] LABS: Appearance Urine UA CLEAR; Bilirubin Urine UA NEGATIVE (NEGATIVE); Color Urine UA YELLOW; Glucose Urine UA NEGATIVE (Negative); Ketones Urine UA NEGATIVE (NEGATIVE); Leukocyte Esterase Urine UA TRACE (NEGATIVE); Nitrite Urine UA NEGATIVE (Negative); Occult Blood Urine UA NEGATIVE (Negative); Protein Urine UA NEGATIVE (Negative); Urobilinogen Urine UA 0.2 E.U./dL (0.2); pH Urine UA 6.5 (4.5-8.0)
[2022-02-12 04:20] LABS: COVID19 -Nasal RAPID Negative (Negative)
[2022-02-12 04:24] LABS: Bacteria Urine None Seen; Culture Indicated Urine Cult Not Indicated; RBC Urine 0-1/HPF (0-5/HPF); Squamous Epithelial Cell Urine 1-5 /HPF (0-5/HPF); WBC Urine None Seen (0-5/HPF)
--- NOTE | 2022-02-12 04:31 | P.HP_ITS ---
History of Present Illness History of Present Illness Date Patient Seen: 02/12/22 Time Patient Seen: 04:32 Chief complaint: restless leg syndrome Narrative: Mr. Mane is an 81M with PMH PVD s/p L fem-pop, osteomyelitis, chronic hyponatremia, and BPH presented to the ED this evening complaining restless leg symptoms, while in the ED patient was found to have a sodium of 123. Patient suffers from chronic hyponatremia since June of 2020 patient's sodium levels in 2021 have been 123-127. Patient was last admitted November of 2021 for acute confusion and hyponatremia 125. Dr. Manzo in the ED reports that the patient appears appropriate, the patient's reports that cognitive function is at baseline. Patient denies fever chills, chest pain, nausea, vomiting, abdominal pain, cough, ear eye discomfort, urinary or bowel symptoms, recent illness injury or trauma, no new or changes to medications. When patient was discharged home in November he was instructed to participate in fluid restriction of 0194-2271 cc per day and was given a 1000 mg salt tabs to take twice daily the patient reports he has been compliant. 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 Patient completed a head CT and MRI of the brain in November results were unremarkable. Patient's PCP is Dr. Mayberry. Patient is febrile upon admit temp 99?, BP 161/73, HR 77, R 19, O2 saturation 98% on room air. HGB 10.4, HCT 30.9 this is baseline for patient. Sodium 123, chloride 96, the remainder patient's electrolytes are WNL. Patient is being admitted for observation, acute on chronic hyponatremia. Patient History Medical History BPH (benign prostatic hyperplasia) Erectile dysfunction Gait instability Hyponatremia Left foot pain Neck mass Toenail fungus Uses walker Well adult exam Surgical History Anesthesia History of cataract removal with insertion of prosthetic lens Family & Social History Family History (Updated 02/12/22 @ 05:21 by ASAF Fabian) Sister Kidney disease Brother Cancer Social History: household members spouse Safety & Behavioral: Feels Safe in Current Yes Environment Been Physically Hurt or No Threatened By a Person Tobacco & Substance use: Smoking Status Current every day smoker alcohol intake frequency 0-2 drinks per day Substance Use Type does not use Meds Home Medications and Allergies Home Medications Medication Instructions Recorded Confirmed Type Disabled parking permit #1 ea 12/27/17 12/12/21 Rx diclofenac sodium 1 % topical gel 2 g topical QID #100 grams 06/16/20 12/12/21 Rx (Voltaren Arthritis Pain) tamsulosin 0.4 mg capsule (Flomax) 0.8 mg PO DAILY urinary frequency 10/02/20 12/12/21 Rx #180 caps finasteride 5 mg tablet See Rx Instructions .Route 06/19/21 12/12/21 Rx .COMPLEX #30 tabs oxazepam 15 mg capsule See Rx Instructions .Route 07/08/21 12/12/21 Rx .COMPLEX #90 caps terbinafine HCl 250 mg tablet 250 mg PO DAILY #90 tabs 08/05/21 12/12/21 Rx sildenafil (pulm.hypertension) 20 20 mg PO DAILY PRN sexual activity 08/06/21 12/12/21 Rx mg tablet #50 tabs gabapentin 100 mg capsule 100 mg PO BEDTIME PRN pain, mild 10/26/21 12/12/21 Rx #30 caps aspirin 81 mg tablet,delayed 162 mg PO DAILY #120 tabs 12/14/21 Rx release cefepime 2 gram solution for 2 gm IV Q12H #80 ea 12/14/21 Rx injection ferrous sulfate 325 mg (65 mg 325 mg PO BID #120 tabs 12/14/21 Rx iron) tablet rosuvastatin 20 mg tablet (Crestor) 20 mg PO DAILY #60 tabs 12/14/21 Rx sodium chloride 1 gram tablet 1,000 mg PO BID #60 tabs 01/07/22 Rx Allergies Allergy/AdvReac Type Severity Reaction Status Date / Time codeine AdvReac Mild ABD Verified 10/05/21 15:06 PAIN/GI UPSET Review of Systems Review of Systems Narrative: All 12 point systems reviewed with the patient and are negative except otherwise documented. Exam Vital Signs (past 8 hours): - 02/11/22 23:17 02/12/22 00:19 Temperature 99.0 F Pulse Rate 88 77 Respiratory Rate 18 19 Blood Pressure 161/70 H 161/73 H Pulse Oximetry 99 98 Oxygen Delivery Method Room Air Room Air Oxygen Delivery Method Room Air Narrative Exam Narrative: General: Patient is a elderly male in no distress at this time. HEENT: Normocephalic, atraumatic, extraocular muscles intact, oral pharynx is clear and mucous membranes are moist. Neck is supple and symmetric, trachea is midline, no adenopathy, no thyroid enlargement, nontender, no masses palpated. Negative for JVD Chest: Normal AP diameter and contour without kyphoscoliosis, no nasal flaring, retractions, or tachypneic labored Lungs: Auscultation of all lung david are clear without adventitious sounds, wheezes, rhonchi, or rales. Cardio: S1 & S2 with regular rate and rhythm without murmur, rubs, or gallops, no carotid bruit, no cardiac pulsations present. Abdomen: Soft nontender, negative for organomegaly, or masses. Bowel sounds are present in all 4 quadrants without guarding or rebound, no CVA tenderness. Musculoskeletal: Muscle strength and tone are equal within normal limits, no deformity, crepitus, effusions, cyanosis, clubbing or edema present. Full range of motion intact radial and pedal pulses are normal. Skin: Healed scar to in her left thigh, Warm dry and intact without rashes, ulcerations or petechiae. Neuro: Alert and orientated x3, strength is +5/5 in all extremities, sensation to touch intact, no gross deficits noted of cranial nerves. Psych: Patient has a well-kept appearance, appropriate affect, mental status attitude thought context and judgment are appropriate for age. Objective Labs Result Diagrams: 02/12/22 03:00 02/12/22 03:00 Labs: Laboratory Results - last 24 hr 02/12/22 02/12/22 02/12/22 03:00 03:00 03:45 WBC 7.3 RBC 3.80 L Hgb 10.4 L Hct 30.9 L MCV 81.3 MCH 27.3 MCHC 33.6 RDW 16.3 H Plt Count 215 Neut % (Auto) 58.1 Lymph % (Auto) 22.9 L [place] % (Auto) 10.6 Eos % (Auto) 7.0 H Baso % (Auto) 1.4 Neut # (Auto) 4200 Lymph # (Auto) 1700 [place] # (Auto) 800 Eos # (Auto) 500 H Baso # (Auto) 100 Sodium 123 L Potassium 4.3 Chloride 96 L Carbon Dioxide 22 BUN 17 Creatinine 0.78 Estimated GFR > 60 BUN/Creatinine Ratio 21.8 Glucose 93 Calcium 8.4 Urine Color Urine Appearance Urine pH Ur Specific [place] Urine Protein Urine Glucose (UA) Urine Ketones Urine Occult Blood Urine Nitrate Urine Bilirubin Urine Urobilinogen Ur Leukocyte Esterase Urine RBC Urine WBC Ur Squamous Epith Cells Urine Bacteria Ur Culture Indicated? SARS-CoV-2 (PCR) Negative 02/12/22 03:55 WBC RBC Hgb Hct MCV MCH MCHC RDW Plt Count Neut % (Auto) Lymph % (Auto) [place] % (Auto) Eos % (Auto) Baso % (Auto) Neut # (Auto) Lymph # (Auto) [place] # (Auto) Eos # (Auto) Baso # (Auto) Sodium Potassium Chloride Carbon Dioxide BUN Creatinine Estimated GFR BUN/Creatinine Ratio Glucose Calcium Urine Color Yellow Urine Appearance Clear Urine pH 6.5 Ur Specific [place] 1.010 Urine Protein Negative Urine Glucose (UA) Negative Urine Ketones Negative Urine Occult Blood Negative Urine Nitrate Negative Urine Bilirubin Negative Urine Urobilinogen 0.2 Ur Leukocyte Esterase Trace H Urine RBC 0-1/hpf Urine WBC None seen Ur Squamous Epith Cells 1-5 /hpf Urine Bacteria None seen Ur Culture Indicated? Cult not indicated SARS-CoV-2 (PCR) Assessment & Plan Assessment & Plan narrative: 1. Hyponatremia, acute on chronic, present on admission -chronic, near his baseline -on admission was 123 -hypertonic saline 3% at 20 cc an hour, recheck sodium 8:00 a.m. -continue patient's 1000 mg salt tabs b.i.d. 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 Anemia, chronic, present on admission -HGB 10.4, HCT 30.9 on admission-at baseline -continue ferrous sulfate 3. PVD s/p L fem-pop bypass, chronic, present on admission -graft site looks well healed -pain meds PRN 4. BPH, chronic, present on admission -continue flomax, finasteride 5. History of osteomyelitis, 2021 left foot, not present on admission -resolved patient no longer receiving treatment CODE: Full Proxy: Glo Antonietta, friend COVREZA PCR: Negative DVT/VTE prophylaxis: SCDs and Lovenox Disposition: Patient admitted for observation due to hyponatremia expected length of stay less than 2 midnights I have utilized all available immediate resources to obtain, update, or review the patient's current medications. I confirmed that the patient's advanced care plan is present, Code status is documented and/or surrogate decision maker is listed in the patient's medical record. Time Spent With Patient Critical Care time: I spent a total of [] minutes of critical care time on this patient's care today; this time is exclusive of procedural time. Scores GCS Abril coma scale eye opening: Spontaneous Abril coma scale verbal response: Orientated [place] coma scale motor response: Obey commands Abril coma scale total score: 15
[2022-02-12 04:48] LABS: Magnesium 1.8 mg/dL (1.6-2.3)
[2022-02-12] MEDS: FERROUS SULFATE 325 MG TABLET PO (07:49)
[2022-02-12] MEDS: SODIUM CHLORIDE 1,000 MG TABLET 1000 MG PO ×2 (07:49→09:57)
[2022-02-12 09:17] LABS: Sodium 126 mmol/L (137-145)
[2022-02-12] MEDS: ENOXAPARIN 40 MG/0.4 ML SYRINGE SUBCUT (09:57)
[2022-02-12] MEDS: ASPIRIN EC 81 MG TABLET 162 MG PO (09:57)
[2022-02-12] MEDS: TAMSULOSIN 0.4 MG CAPSULE 0.8 MG PO (09:57)
--- NOTE | 2022-02-12 11:16 | CM.DANOTE ---
Addendum entered by Sadia Power R.N. 02/12/22 12:31: Per , pt medically stable to discharge. Pt to discharge home via spouse POV. Sadia Power RN/JUSTO Original Note: DCP Assessment: Payor: Medicare PCP: MD Jefe Pt is a 81 y.o. M who presented to the ED with restless leg syndrome. Pt has a hx of this as well as iron deficiency anemia and chronic wounds. Pt stated that his RLS symptoms have been getting worse. Pt does have mild memory issue and states that he is not more confused or altered. Labs showed that pt has hyponatremia. Pt admitted for observation of hyponatremia and restless leg syndrome. DCP met with pt this morning bedside. Pt was sleeping. Pt answered questions with in and out of drowsiness. Pt stated that he lives in a 1 story house with his , Glo, in [place]. Pt states that he uses a walker at baseline. DCP to contact Glo for more clarity and information. DCP spoke with Glo over the phone this morning and she confirms that they do live in a 1 story house. Glo states that pt had a surgery in November and has been in a wheelchair ever since. She states that they are trying to transition him out of the use of a wheelchair and back onto his walker. Pt states they have previously had [facility]. Pt states that their home is handicapped accessible and they are able to move about safely. Pt states that she is concerned that this low sodium will be a chronic problem and she is not sure where to turn too. DCP inquired about PCP and if they are monitoring this level. Pt declines. DCP instructed her to contact PCP and that pt will need to follow up with his PCP post discharge. understood. on the way up to hospital today. Glo stated she will contact DCP if any other needs arise. P: Once pt is medically stable, pt to discharge home via spouse POV and r/o . Sadia Power RN/JUSTO Discharge Planning/Care Management Advanced directive, confirm from FAMILY Start: 02/12/22 06:37 Freq: Q24H Status: Active Protocol: Document 02/12/22 06:37 MW (Rec: 02/12/22 06:37 MW [id number]) Advance Directive, confirm on record Time 06:37 Person contacted pt Copy received No CM Discharge Assessment Start: 02/12/22 10:56 Freq: Status: Active Protocol: Document 02/12/22 11:08 EVAN (Rec: 02/12/22 11:16 EVAN [id number]) Discharge Planning Assessment Assigned Lap Runner Sadia Power RN/JUSTO Advance Directives? Yes Advance Directives on File No History Provided By Patient,Family Member,Medical Record Prior Living Arrangements House Household Members spouse Type of transporation used prior to Relies on Others admit Independent with ADL's Yes Is patient alert and oriented? Yes Caregiver for Another No Patient/Family Preference Home with Home Health Comment Patient lives alone, but ex- is staying with him temporarily, as they have another home. Discharge Plan Home with Home Health Referrals Initiated Other Whiteboard Updated in Patient Room with Yes name and ext. # of Lap Runner Comment Instructed to call Review Status In Process Please Provide Date Initial DC 02/12/22 Assessment Was Performed Next Review Type Continued Stay Review
== END 2022-02-12 12:19 | disposition home or self-care (01) ==
LOC: ED 02-12 04:06 → AC 02-12 04:08
PROVIDERS: Admitting Provider Nurse Practitioner Family; Emergency Provider Emergency Medicine; Family Provider Family Medicine; PCP Family Medicine; Referring Provider Emergency Medicine; Visit Provider Nurse Practitioner Family
DX: E87.1 Hypo-osmolality and hyponatremia (principal); D64.9 Anemia, unspecified; I73.9 Peripheral vascular disease, unspecified; N40.0 Benign prostatic hyperplasia without lower urinary tract symptoms; G25.81 Restless legs syndrome; F17.200 Nicotine dependence, unspecified, uncomplicated; Z20.822 Contact with and (suspected) exposure to COVID-19
CPT/HCPCS: 36415; 80048; 81001; 83735; 84295; 85025; 87635; 96372; 99283; 99284; C9803; G0378; J1650

== ENCOUNTER → 2022-03-09 14:14 | Outpatient (CLI) | payer MEDICARE, OTHER, SELFPAY ==
[2022-02-16 11:36] VITALS: BMI 19.0
[2022-03-09 15:01] LABS: Add Manual Diff / Slide Review NO; Basophils Absolute Auto 100 /uL (0-100); Eosinophils Absolute Auto 400 /uL (0-450); Eosinophils Percent Auto 6.7 % (2-4); Hematocrit 35.5 % (41-53); Hemoglobin 12.2 g/dL (13.5-17.5); Lymphocytes Absolute Auto 1500 /uL (1100-4500); Lymphocytes Percent Auto 25.3 % (25-40); Mean Corpuscular HGB Conc 34.3 % (30-36); Mean Corpuscular Hemoglobin 27.8 PG (26-34); Mean Corpuscular Volume 81.1 fL (80-100); Monocytes Absolute Auto 600 /uL (0-900); Monocytes Percent Auto 10.9 % (3-14); Neutrophils Absolute Auto 3200 /uL (1500-7000); Neutrophils Percent Auto 56.1 % (50-75); Platelet Count 220 X10^3/uL (150-400); Red Blood Cell Count 4.38 X10^6/uL (4.5-5.9); Red Cell Distribution Width 17.1 % (11.6-14.8); White Blood Cell Count 5.8 X10^3/uL (4.5-11.0)
[2022-03-09 15:07] LABS: Reticulocyte Count, Percent 1.1 % (0.9-2.6)
[2022-03-09 15:13] LABS: HEMOLYSIS < 15 (0-50); Iron 44 ug/dL (49-181)
[2022-03-09 15:15] LABS: Alanine Aminotransferase 10 IU/L (<50); Albumin 4.1 g/dL (3.5-5.0); Albumin Globulin Ratio 1.3 (1.0-2.8); Alkaline Phosphatase 106 U/L (38-126); Aspartate Aminotransferase 22 IU/L (17-59); BUN Creatinine Ratio 17.1 (6-22); Bilirubin Total 0.3 mg/dL (0.2-1.3); Blood Urea Nitrogen 14 mg/dL (9-20); Calcium 9.1 mg/dL (8.4-10.2); Carbon Dioxide 25 mmol/L (22-32); Chloride 95 mmol/L (98-107); Estimated Glomerular Filt Rate > 60 mL/min (>60); Globulin 3.2 g/dL (1.7-4.1); Glucose 100 mg/dL (80-110); HEMOLYSIS < 15 (0-50); Potassium 5.2 mmol/L (3.4-5.1); Sodium 124 mmol/L (137-145); Total Protein 7.3 g/dL (6.3-8.2)
[2022-03-09 15:25] LABS: Percent Iron Saturation 13 % (20-50); Total Iron Binding Capacity 348 ug/dL (261-462); Transferrin 259 mg/dL (206-381)
[2022-03-09 15:44] LABS: Cortisol Random 10.6 ug/dL
[2022-03-09 15:45] LABS: TSH w/ Reflex to FT4 1.31 uIU/mL (0.47-4.68)
[2022-03-09 15:52] LABS: Sodium Urine Random 42 mmol/L (30-90)
[2022-03-11 16:03] LABS: Osmolality Urine 216 mOsmol/kg (.)
[2022-03-11 16:03] LABS: Osmolality, Serum 265 mOsmol/kg (280-301)
== END ==
PROVIDERS: Family Provider Family Medicine; PCP Family Medicine; Referring Provider Family Medicine; Visit Provider Family Medicine
DX: E87.1 Hypo-osmolality and hyponatremia (principal); D64.9 Anemia, unspecified; R53.83 Other fatigue
CPT/HCPCS: 36415; 80053; 82533; 83540; 83550; 83930; 83935; 84300; 84443; 84588; 85025; 85045

== ENCOUNTER → 2022-09-01 13:08 | Outpatient (CLI) | payer MEDICARE, OTHER, SELFPAY ==
[2022-02-16 11:36] VITALS: BMI 19.0
[2022-09-01 14:04] LABS: Hemoglobin 13.5 g/dL (13.5-17.5)
[2022-09-01 14:35] LABS: BUN Creatinine Ratio 22.7 (6-22); Blood Urea Nitrogen 17 mg/dL (9-20); Calcium 9.3 mg/dL (8.4-10.2); Carbon Dioxide 24 mmol/L (22-32); Chloride 96 mmol/L (98-107); Estimated Glomerular Filt Rate > 60 mL/min (>60); Glucose 88 mg/dL (80-110); HEMOLYSIS < 15 (0-50); Potassium 4.4 mmol/L (3.4-5.1); Sodium 129 mmol/L (137-145)
== END ==
PROVIDERS: Family Provider Family Medicine; PCP Family Medicine; Referring Provider Student in an Organized Health Care Education/Training Program; Visit Provider Student in an Organized Health Care Education/Training Program
DX: N05.9 Unspecified nephritic syndrome with unspecified morphologic changes (principal); D64.9 Anemia, unspecified; R80.9 Proteinuria, unspecified
CPT/HCPCS: 36415; 80048; 85014; 85018

== ENCOUNTER → 2022-09-02 10:58 | Outpatient (CLI) | payer MEDICARE, OTHER, SELFPAY ==
[2022-02-16 11:36] VITALS: BMI 19.0
[2022-09-02 14:25] LABS: Creatinine Urine Random 53.1 mg/dL; Protein (Total) Urine Random 33 mg/dL (0-12); Protein Creatinine Ratio Urine 0.62 GRAM/24H
== END ==
PROVIDERS: Family Provider Family Medicine; PCP Family Medicine; Referring Provider Family Medicine; Visit Provider Family Medicine
DX: N40.0 Benign prostatic hyperplasia without lower urinary tract symptoms (principal)
CPT/HCPCS: 82570; 84156

== ENCOUNTER → 2022-09-27 09:36 | Outpatient (CLI) | payer MEDICARE, OTHER, SELFPAY ==
[2022-02-16 11:36] VITALS: BMI 19.0
[2022-09-27 13:31] LABS: BUN Creatinine Ratio 29.9 (6-22); Blood Urea Nitrogen 23 mg/dL (9-20); Calcium 8.4 mg/dL (8.4-10.2); Carbon Dioxide 23 mmol/L (22-32); Chloride 98 mmol/L (98-107); Estimated Glomerular Filt Rate > 60 mL/min (>60); Glucose 99 mg/dL (80-110); HEMOLYSIS < 15 (0-50); Potassium 4.3 mmol/L (3.4-5.1); Sodium 128 mmol/L (137-145)
[2022-09-27 13:40] LABS: NT-proBNP (BNP-Adult 18+) 48 pg/mL (<450)
[2022-09-27 13:44] LABS: Appearance Urine UA CLOUDY; Bilirubin Urine UA NEGATIVE (NEGATIVE); Color Urine UA YELLOW; Glucose Urine UA NEGATIVE (Negative); Ketones Urine UA NEGATIVE (NEGATIVE); Leukocyte Esterase Urine UA 3+ (NEGATIVE); Nitrite Urine UA NEGATIVE (Negative); Occult Blood Urine UA 1+ (Negative); Protein Urine UA TRACE (Negative); Urobilinogen Urine UA 0.2 E.U./dL (0.2)
[2022-09-27 13:49] LABS: Free T4, Direct Thyroxine 1.24 ng/dL (0.78-2.19)
[2022-09-27 13:53] LABS: Culture Indicated Urine Cult Not Indicated; WBC Urine >100/HPF (0-5/HPF)
[2022-09-27 13:54] LABS: Bacteria Urine Many (>30)
[2022-09-27 13:55] LABS: RBC Urine 1-5/HPF (0-5/HPF); Squamous Epithelial Cell Urine 1-5 /HPF (0-5/HPF)
[2022-09-27 14:01] LABS: Cortisol Random 6.92 ug/dL
[2022-09-27 14:03] LABS: Thyroid Stimulating Hormone 1.13 uIU/mL (0.47-4.68)
[2022-09-27 17:47] LABS: Creatinine Urine Random 46.1 mg/dL; Protein (Total) Urine Random 39 mg/dL (0-12); Protein Creatinine Ratio Urine 0.84 GRAM/24H; Sodium Urine Random 70 mmol/L (30-90)
[2022-09-28 13:07] LABS: Osmolality, Serum 278 mOsmol/kg (280-301)
== END ==
PROVIDERS: Family Provider Family Medicine; PCP Family Medicine; Referring Provider Student in an Organized Health Care Education/Training Program; Visit Provider Student in an Organized Health Care Education/Training Program
DX: I50.32 Chronic diastolic (congestive) heart failure (principal); N05.9 Unspecified nephritic syndrome with unspecified morphologic changes; E87.1 Hypo-osmolality and hyponatremia; E03.9 Hypothyroidism, unspecified; N30.00 Acute cystitis without hematuria; R80.9 Proteinuria, unspecified
CPT/HCPCS: 36415; 80048; 81001; 82533; 82570; 83880; 83930; 84156; 84300; 84439; 84443

== ENCOUNTER → 2022-10-26 13:49 | Outpatient (CLI) | payer MEDICARE, OTHER, SELFPAY ==
[2022-10-11 08:21] VITALS: BMI 19.0
--- NOTE | 2022-10-26 13:54 | DI.RAD.S_ITS ---
PROCEDURE: XR CHEST 2V INDICATIONS: HYPONATREMIA TECHNIQUE: 2 views of the chest were acquired. COMPARISON: [facility], CR, XR CHEST 1V, 01/11/2022, 2:20. FINDINGS: Surgical changes and devices: None. Lungs and pleura: Centrilobular emphysema. Lungs are clear. No pleural effusions or pneumothorax. Mediastinum: Mediastinal contours are normal. Heart size is normal. Bones and chest wall: No suspicious bony abnormalities. Soft tissues appear unremarkable. IMPRESSION: COPD. No evidence of acute pulmonary process. Dictated by: Juan Diego Welch M.D. on 10/26/2022 at 15:50 Approved by: Juan Diego Welch M.D. on 10/26/2022 at 15:56
[2022-10-26 14:55] LABS: Alanine Aminotransferase 15 IU/L (<50); Albumin 3.7 g/dL (3.5-5.0); Albumin Globulin Ratio 1.2 (1.0-2.8); Alkaline Phosphatase 105 U/L (38-126); Aspartate Aminotransferase 17 IU/L (17-59); BUN Creatinine Ratio 38.2 (6-22); Bilirubin Total 0.3 mg/dL (0.2-1.3); Blood Urea Nitrogen 29 mg/dL (9-20); Calcium 8.9 mg/dL (8.4-10.2); Carbon Dioxide 28 mmol/L (22-32); Chloride 99 mmol/L (98-107); Estimated Glomerular Filt Rate > 60 mL/min (>60); Globulin 3.1 g/dL (1.7-4.1); Glucose 98 mg/dL (80-110); HEMOLYSIS < 15 (0-50); Potassium 4.3 mmol/L (3.4-5.1); Sodium 130 mmol/L (137-145); Total Protein 6.8 g/dL (6.3-8.2)
[2022-10-26 15:20] LABS: Creatinine Urine Random 52.1 mg/dL; Protein (Total) Urine Random 32 mg/dL (0-12); Protein Creatinine Ratio Urine 0.61 GRAM/24H
== END ==
PROVIDERS: Family Provider Family Medicine; PCP Family Medicine; Referring Provider Student in an Organized Health Care Education/Training Program; Visit Provider Student in an Organized Health Care Education/Training Program
DX: J44.9 Chronic obstructive pulmonary disease, unspecified (principal); N05.9 Unspecified nephritic syndrome with unspecified morphologic changes; E87.1 Hypo-osmolality and hyponatremia; R80.9 Proteinuria, unspecified; Z72.0 Tobacco use
CPT/HCPCS: 36415; 71046; 80053; 82570; 84156

== ENCOUNTER → 2022-12-06 11:54 | Outpatient (CLI) | payer MEDICARE, OTHER, SELFPAY ==
[2022-10-11 08:21] VITALS: BMI 19.0
--- NOTE | 2022-12-06 11:57 | DI.RAD.S_ITS ---
PROCEDURE: XR SHOULDER RT MIN 2V INDICATIONS: R shoulder pain increasing TECHNIQUE: 3 views of the shoulder were acquired. COMPARISON: [facility], CR, XR CHEST 2V, 10/26/2022, 13:55. FINDINGS: Bones: No fractures or dislocations. No suspicious bony lesions. Visualized ribs appear intact. Mild AC joint hypertrophy. Glenohumeral joint is not well profiled included views, degenerative changes could be present. Soft tissues: No suspicious soft tissue calcifications. IMPRESSION: No acute osseous abnormality. If symptoms persist, follow-up radiographs and/or CT or MRI may be helpful for further evaluation. Dictated by: Delvin Khan M.D. on 12/06/2022 at 18:16 Approved by: Delvin Khan M.D. on 12/06/2022 at 18:18
== END ==
PROVIDERS: Family Provider Family Medicine; PCP Family Medicine; Referring Provider Family Medicine; Visit Provider Family Medicine
DX: M25.511 Pain in right shoulder (principal)
CPT/HCPCS: 73030

== ENCOUNTER → 2023-03-22 12:10 | Outpatient (CLI) | payer MEDICARE, OTHER, SELFPAY ==
[2022-10-11 08:21] VITALS: BMI 19.0
--- NOTE | 2023-03-22 | DI.MRI.S_ITS ---
PROCEDURE: MR SHOULDER RT WO CON INDICATIONS: OSTEOARTHRITIS / RULE OUT ROTATOR CUFF TEAR TECHNIQUE: Noncontrast oblique coronal T2 fast spin echo with fat saturation, oblique sagittal T1 spin echo and T2 fast spin echo with fat saturation, axial T1 spin echo and T2 fast spin echo with fat saturation through the shoulder. COMPARISON: [facility], CR, XR SHOULDER RT MIN 2V, 12/06/2022, 12:06. FINDINGS: Image quality: Good Rotator cuff: Bulk: No significant atrophy Teres minor: Intact Supraspinatus: Partial-thickness articular surface tearing, high-grade, at the footplate. Additional tendinosis. Infraspinatus: [id number] tendinosis and partial-thickness interstitial tears. Subscapularis: [id number] tendinosis. Partial-thickness articular tear at the insertion. Bones and bursae: GH joint: Moderate degenerative changes AC joint: Moderate to severe degenerative changes. Humeral head: Intact Scapula and acromion: Intact Bursa: No pathologic fluid Capsule: Labrum: Mild circumferential attenuation. Superior labral signal abnormality may be from prior injury. Long head biceps tendon: Intra-articular tendinosis. IGHL: Intact Rotator interval: Preserved fat signal Soft tissues: No axillary adenopathy. Lungs are not well seen. IMPRESSION: Advanced glenohumeral and acromioclavicular degenerative changes. No significant rotator cuff atrophy. High-grade partial thickness footplate tear of the supraspinatus. Superimposed scattered rotator cuff tendinosis. No full-thickness defect. Degenerative labral changes. Long head biceps tendinosis. Dictated by: Camilo Hastings M.D. on 03/22/2023 at 15:23 Approved by: Camilo Hastings M.D. on 03/22/2023 at 15:27
== END ==
PROVIDERS: Family Provider Family Medicine; PCP Family Medicine; Referring Provider Orthopaedic Surgery; Visit Provider Orthopaedic Surgery
DX: M75.111 Incomplete rotator cuff tear or rupture of right shoulder, not specified as traumatic (principal); M19.011 Primary osteoarthritis, right shoulder
CPT/HCPCS: 73221

== ENCOUNTER 2023-04-26 05:40 | Emergency (ER) | payer MEDICARE, OTHER, SELFPAY ==
[2022-10-11 08:21] VITALS: BMI 19.0
[2023-04-26 05:49] VITALS: PULSE 95; RESP 41; O2SAT 97
[2023-04-26 05:51] VITALS: BP 162/80; PULSE 95; RESP 20; TEMP 37.3; O2SAT 97; BMI 20.3
[2023-04-26 06:00] VITALS: PULSE 93; RESP 32; O2SAT 95
[2023-04-26 06:01] VITALS: BP 150/80; PULSE 95; RESP 28; O2SAT 96
--- NOTE | 2023-04-26 06:21 | ED.EXTPRO ---
HPI - Extremity Problem <Jenifer Manzo, - Last Filed: 04/27/23 10:45> General Chief complaint: Extremity Problem,Nontraumatic Stated complaint: Legs and arms shaking Time Seen by Provider: 04/26/23 06:20 Source: patient Mode of arrival: Family Vehicle Limitations: no limitations History of Present Illness HPI Narrative: This is a 82-year-old male with history of restless leg, arterial bypass of his lower extremity, iron deficiency anemia who presents with worsening restless leg symptoms. Patient states he is had longstanding, he does take medication pramipexole he states twice daily at 3:00 a.m. in the morning at 9:00 a.m. in the evening. He has been taking his doses regularly he did have a dose this morning. Patient states he is had some mild memory issues but has not had any changes such as confusion or being altered. They both feel like he is at his normal baseline. Denies fevers, chills, no chest pain or shortness of breath, no lightheadedness or passing out. No nausea or vomiting, no recent diarrhea or constipation. No dysuria urgency or frequency that is new. Patient denies any new pain or color changes to his leg. Sensation is at he has to move them. He states most of the time it has been well controlled but he does have flare-ups occasionally. He has had hyponatremia in the past and they were concerned this might be contributing. Patient has had Ativan in the past for this which made him hallucinate. Patient states allergies include arterial bypass for his lower extremity. Allergic to codeine. Patient does use tobacco regularly, does drink alcohol, no illicit or recreational drugs. He is accompanied by his . His primary care is Dr. Mayberry. Related Data Home Medications Medication Instructions Recorded Confirmed diclofenac sodium 1 % topical gel 2 g topical QID PRN 03/23/23 04/08/23 Previous Rx's Medication Instructions Recorded sodium chloride 1,000 mg soluble See Rx Instructions .Route 10/01/22 tablet .COMPLEX #60 tabs Disabled Parking Permint #1 ea 12/07/22 finasteride 5 mg tablet 5 mg PO DAILY #90 tabs 03/23/23 tamsulosin 0.4 mg capsule 0.4 mg PO BEDTIME #90 caps 03/23/23 pramipexole 0.5 mg tablet 0.25 mg PO DAILY #90 tabs 04/15/23 tramadol 50 mg tablet 50 mg PO BID PRN pain #60 tabs 04/15/23 Allergies Allergy/AdvReac Type Severity Reaction Status Date / Time codeine AdvReac Mild ABD Verified 04/08/23 09:36 PAIN/GI UPSET Review of Systems <Jenifer Manzo DO - Last Filed: 04/27/23 10:45> Review of Systems ROS Unobtainable: All systems reviewed & are unremarkable except as noted in HPI and below Patient History <Jenifer Manzo DO - Last Filed: 04/27/23 10:45> Medical History Arthritis of both shoulder regions Atypical nevi Bilateral shoulder pain BPH (benign prostatic hyperplasia) BPH w urinary obs/LUTS Erectile dysfunction Gait instability Hyponatremia Incomplete bladder emptying Left foot pain Neck mass Right anterior shoulder pain Seborrheic keratoses Toenail fungus Uses walker Well adult exam Zoster Surgical History Anesthesia History of cataract removal with insertion of prosthetic lens Family History Sister Kidney disease Brother Cancer Social History household members: spouse Smoking Status: Current every day smoker Smoking Status: Current every day smoker alcohol intake frequency: 0-2 drinks per day Substance Use Type: does not use Exam <Jenifer Manzo DO - Last Filed: 04/27/23 10:45> Narrative Exam Narrative: GEN: Thin elderly male, alert and oriented x 3, patient appears to be in mild distress. HEENT: Atraumatic, pupils are equal round reactive to light, extraocular movements are intact, nares are clear, there is no conjunctival pallor. Throat is clear without any exudates, erythema, tonsillar enlargement or uvular deviation, no facial droop. HEART: Regular rate and rhythm without murmur, clicks, rubs. Pulses are equal in upper and lower extremities LUNGS:Lungs clear to auscultation, no wheezes, rales, crackles, chest moves symmetrically ABD:bowel sounds normal, soft, non-tender, no guarding, rebound, rigidity, no masses noted, no hepatosplenomegaly :No CVA tenderness MSCL: Non-tender, no muscle atrophy, muscles strength 5/5 upper and lower extremities, full range of motion. + pulses bilaterally, no color changes. NEURO:CN 2-12 intact, sensation normal, reflexes 2/4 upper and lower extremities. No tremor noted but patient does frequenly move and lift his legs voluntarily. Initial Vital Signs Initial Vital Signs: Vital Signs Pulse Rate 95 H 04/26/23 05:49 Respiratory Rate 41 H 04/26/23 05:49 Pulse Oximetry 97 04/26/23 05:49 <Javid Bazan DO - Last Filed: 04/26/23 07:25> Initial Vital Signs Initial Vital Signs: Vital Signs Pulse Rate 95 H 04/26/23 05:49 Respiratory Rate 41 H 04/26/23 05:49 Pulse Oximetry 97 04/26/23 05:49 Course <Jenifer Manzo DO - Last Filed: 04/27/23 10:45> Orders Ordered: Discontinued Medications Pramipexole Dihydrochloride (Pramipexole 0.25 Mg Tablet) 0.25 mg PO NOW ONE Stop: 04/26/23 06:36 Last Admin: 04/26/23 06:55 Dose: 0.25 mg Documented By: VINCENT Vital Signs Vital signs: Vital Signs - 8 hr 04/26/23 05:51 04/26/23 05:49 04/26/23 06:00 Temperature 99.1 F Pulse Rate 95 H 95 H 93 H Respiratory Rate 20 41 H 32 H Blood Pressure 162/80 H Pulse Oximetry 97 97 95 Oxygen Delivery Method Room Air 04/26/23 06:01 04/26/23 06:01 04/26/23 06:30 Temperature Pulse Rate 95 H Respiratory Rate 28 H Blood Pressure 150/80 H 146/75 H Pulse Oximetry 96 Oxygen Delivery Method 04/26/23 06:30 Temperature Pulse Rate 96 H Respiratory Rate 30 H Blood Pressure Pulse Oximetry 96 Oxygen Delivery Method <DO John Sampson Last Filed: 04/26/23 07:25> Orders Ordered: Discontinued Medications Pramipexole Dihydrochloride (Pramipexole 0.25 Mg Tablet) 0.25 mg PO NOW ONE Stop: 04/26/23 06:36 Last Admin: 04/26/23 06:55 Dose: 0.25 mg Documented By: GC Vital Signs Vital signs: Vital Signs - 8 hr 04/26/23 05:51 04/26/23 05:49 04/26/23 06:00 Temperature 99.1 F Pulse Rate 95 H 95 H 93 H Respiratory Rate 20 41 H 32 H Blood Pressure 162/80 H Pulse Oximetry 97 97 95 Oxygen Delivery Method Room Air 04/26/23 06:01 04/26/23 06:01 04/26/23 06:30 Temperature Pulse Rate 95 H Respiratory Rate 28 H Blood Pressure 150/80 H 146/75 H Pulse Oximetry 96 Oxygen Delivery Method 04/26/23 06:30 Temperature Pulse Rate 96 H Respiratory Rate 30 H Blood Pressure Pulse Oximetry 96 Oxygen Delivery Method MDM - Extremity (Nontraumatic) <Jenifer Manzo, - Last Filed: 04/27/23 10:45> Lab Data 04/26/23 05:52 04/26/23 05:52 Labs: Lab Results 04/26/23 04/26/23 04/26/23 Range/Units 05:52 05:52 05:52 WBC 7.6 (4.5-11.0) X10^3/uL RBC 4.25 L (4.5-5.9) X10^6/uL Hgb 13.7 (13.5-17.5) g/dL Hct 40.0 L (41-53) % MCV 94.1 (80-100) fL MCH 32.3 (26-34) PG MCHC 34.3 (30-36) % RDW 13.6 (11.6-14.8) % Plt Count 221 (150-400) X10^3/uL Neut % (Auto) 72.1 (50-75) % Lymph % (Auto) 15.4 L (25-40) % Atkinson % (Auto) 8.8 (3-14) % Eos % (Auto) 2.8 (2-4) % Baso % (Auto) 0.9 (0-2) % Neut # (Auto) 5500 (3710-0148) /uL Lymph # (Auto) 1200 (2382-5951) /uL Atkinson # (Auto) 700 (0-900) /uL Eos # (Auto) 200 (0-450) /uL Baso # (Auto) 100 (0-100) /uL Sodium 127 L (137-145) mmol/L Potassium 4.3 (3.4-5.1) mmol/L Chloride 95 L (98-107) mmol/L Carbon Dioxide 26 (22-32) mmol/L BUN 18 (9-20) mg/dL Creatinine 0.63 L (0.66-1.25) mg/dL Estimated GFR > 60 (>60) mL/min BUN/Creatinine Ratio 28.6 H (6-22) Glucose 103 (80-110) mg/dL Calcium 9.2 (8.4-10.2) mg/dL Magnesium 1.9 (1.6-2.3) mg/dL Total Bilirubin 0.6 (0.2-1.3) mg/dL AST 30 (17-59) IU/L ALT 18 (<50) IU/L Alkaline Phosphatase 103 (38-126) U/L Total Protein 7.3 (6.3-8.2) g/dL Albumin 4.1 (3.5-5.0) g/dL Globulin 3.2 (1.7-4.1) g/dL Albumin/Globulin Ratio 1.3 (1.0-2.8) Urine RBC (0-5/HPF) Urine WBC (0-5/HPF) Ur Squamous Epith Cells (0-5/HPF) Urine Bacteria (None) Ur Culture Indicated? Micro UA Comment 04/26/23 Range/Units 06:44 WBC (4.5-11.0) X10^3/uL RBC (4.5-5.9) X10^6/uL Hgb (13.5-17.5) g/dL Hct (41-53) % MCV (80-100) fL MCH (26-34) PG MCHC (30-36) % RDW (11.6-14.8) % Plt Count (150-400) X10^3/uL Neut % (Auto) (50-75) % Lymph % (Auto) (25-40) % Atkinson % (Auto) (3-14) % Eos % (Auto) (2-4) % Baso % (Auto) (0-2) % Neut # (Auto) (6295-9056) /uL Lymph # (Auto) (1818-9844) /uL Atkinson # (Auto) (0-900) /uL Eos # (Auto) (0-450) /uL Baso # (Auto) (0-100) /uL Sodium (137-145) mmol/L Potassium (3.4-5.1) mmol/L Chloride (98-107) mmol/L Carbon Dioxide (22-32) mmol/L BUN (9-20) mg/dL Creatinine (0.66-1.25) mg/dL Estimated GFR (>60) mL/min BUN/Creatinine Ratio (6-22) Glucose (80-110) mg/dL Calcium (8.4-10.2) mg/dL Magnesium (1.6-2.3) mg/dL Total Bilirubin (0.2-1.3) mg/dL AST (17-59) IU/L ALT (<50) IU/L Alkaline Phosphatase (38-126) U/L Total Protein (6.3-8.2) g/dL Albumin (3.5-5.0) g/dL Globulin (1.7-4.1) g/dL Albumin/Globulin Ratio (1.0-2.8) Urine RBC 0-1/hpf (0-5/HPF) Urine WBC 10-30/hpf H (0-5/HPF) Ur Squamous Epith Cells 0-1 /hpf (0-5/HPF) Urine Bacteria None seen (None) Ur Culture Indicated? Specimen cultured Micro UA Comment Urine Dip Bedside Urine Glucose Negative Bedside Urine Bilirubin - Negative Bedside Urine Ketone - Negative Urine Specific [place] 1.010 Bedside Urine Occult Blood ++ Bedside Urine pH 7.0 Bedside Urine Protein - Negative Bedside Urine Urobilinogen - Negative Bedside Urine Leukocytes +++ 500 Esterase MDM Narrative Medical decision making narrative: 82-year-old male comes in with complaint of worsening restless leg symptoms. Patient does appear to have more restless leg, no seizure activity, they appear to be more voluntary movements but he is uncomfortable. Heart rates in the 90s, patient's room air, he is not tachypneic and respiratory rate is in the 20s monitor shows 4130 but this I believe is secondary more to patient's movements. Patient is alert, appropriate his neurologic exam overall is appropriate. Patient does have hyponatremia today is 127 close to his baseline he has been 130s to do any in the past 6 months. No significant anemia hemoglobin is 13.7, normal white count and platelets. Patients notes his last sodium check as outpatient was 126 and 127 is consistent with recent levels. Reviewed his CBC and CMP results, they are aware waiting on mag level. They are agreeable to try an additional dose to see if this is helpful. Patient has not tolerated other medications such as Ativan in the past but isn't on pramipexole. Reviewed will try an additional dose here in the department to see if this is helpful. He is overall well appearing and wants to return home. Patient does have urine sample pending as well as magnesium level. Patient signed out to Dr. Bazan while awaiting these results and response to pramipexole. Dr Bazan: Patient states he would like to go home. He feels that if he is at home where he can sit and stand and move around and sit in his wheelchair he would be better off. His sodium today is at baseline. There was no signs of any specific infection. He is afebrile. I did talk with him that if his symptoms do not improve or continue to work so that he may need to talk with his primary doctor about a referral to see Neurology. He expressed understanding and agreement with. <Javid Bazan, DO - Last Filed: 04/26/23 07:25> Lab Data Labs: Lab Results 04/26/23 04/26/23 04/26/23 Range/Units 05:52 05:52 05:52 WBC 7.6 (4.5-11.0) X10^3/uL RBC 4.25 L (4.5-5.9) X10^6/uL Hgb 13.7 (13.5-17.5) g/dL Hct 40.0 L (41-53) % MCV 94.1 (80-100) fL MCH 32.3 (26-34) PG MCHC 34.3 (30-36) % RDW 13.6 (11.6-14.8) % Plt Count 221 (150-400) X10^3/uL Neut % (Auto) 72.1 (50-75) % Lymph % (Auto) 15.4 L (25-40) % Atkinson % (Auto) 8.8 (3-14) % Eos % (Auto) 2.8 (2-4) % Baso % (Auto) 0.9 (0-2) % Neut # (Auto) 5500 (0092-5820) /uL Lymph # (Auto) 1200 (7176-5851) /uL Atkinson # (Auto) 700 (0-900) /uL Eos # (Auto) 200 (0-450) /uL Baso # (Auto) 100 (0-100) /uL Sodium 127 L (137-145) mmol/L Potassium 4.3 (3.4-5.1) mmol/L Chloride 95 L (98-107) mmol/L Carbon Dioxide 26 (22-32) mmol/L BUN 18 (9-20) mg/dL Creatinine 0.63 L (0.66-1.25) mg/dL Estimated GFR > 60 (>60) mL/min BUN/Creatinine Ratio 28.6 H (6-22) Glucose 103 (80-110) mg/dL Calcium 9.2 (8.4-10.2) mg/dL Magnesium 1.9 (1.6-2.3) mg/dL Total Bilirubin 0.6 (0.2-1.3) mg/dL AST 30 (17-59) IU/L ALT 18 (<50) IU/L Alkaline Phosphatase 103 (38-126) U/L Total Protein 7.3 (6.3-8.2) g/dL Albumin 4.1 (3.5-5.0) g/dL Globulin 3.2 (1.7-4.1) g/dL Albumin/Globulin Ratio 1.3 (1.0-2.8) Urine RBC (0-5/HPF) Urine WBC (0-5/HPF) Ur Squamous Epith Cells (0-5/HPF) Urine Bacteria (None) Ur Culture Indicated? Micro UA Comment 04/26/23 Range/Units 06:44 WBC (4.5-11.0) X10^3/uL RBC (4.5-5.9) X10^6/uL Hgb (13.5-17.5) g/dL Hct (41-53) % MCV (80-100) fL MCH (26-34) PG MCHC (30-36) % RDW (11.6-14.8) % Plt Count (150-400) X10^3/uL Neut % (Auto) (50-75) % Lymph % (Auto) (25-40) % Atkinson % (Auto) (3-14) % Eos % (Auto) (2-4) % Baso % (Auto) (0-2) % Neut # (Auto) (4416-6541) /uL Lymph # (Auto) (8422-9710) /uL Atkinson # (Auto) (0-900) /uL Eos # (Auto) (0-450) /uL Baso # (Auto) (0-100) /uL Sodium (137-145) mmol/L Potassium (3.4-5.1) mmol/L Chloride (98-107) mmol/L Carbon Dioxide (22-32) mmol/L BUN (9-20) mg/dL Creatinine (0.66-1.25) mg/dL Estimated GFR (>60) mL/min BUN/Creatinine Ratio (6-22) Glucose (80-110) mg/dL Calcium (8.4-10.2) mg/dL Magnesium (1.6-2.3) mg/dL Total Bilirubin (0.2-1.3) mg/dL AST (17-59) IU/L ALT (<50) IU/L Alkaline Phosphatase (38-126) U/L Total Protein (6.3-8.2) g/dL Albumin (3.5-5.0) g/dL Globulin (1.7-4.1) g/dL Albumin/Globulin Ratio (1.0-2.8) Urine RBC 0-1/hpf (0-5/HPF) Urine WBC 10-30/hpf H (0-5/HPF) Ur Squamous Epith Cells 0-1 /hpf (0-5/HPF) Urine Bacteria None seen (None) Ur Culture Indicated? Specimen cultured Micro UA Comment Urine Dip Bedside Urine Glucose Negative Bedside Urine Bilirubin - Negative Bedside Urine Ketone - Negative Urine Specific [place] 1.010 Bedside Urine Occult Blood ++ Bedside Urine pH 7.0 Bedside Urine Protein - Negative Bedside Urine Urobilinogen - Negative Bedside Urine Leukocytes +++ 500 Esterase MDM Narrative Medical decision making narrative: 82-year-old male comes in with complaint of worsening restless leg symptoms. Patient does appear to have more restless leg, no seizure activity, they appear to be more voluntary movements but he is uncomfortable. Heart rates in the 90s, patient's room air, he is not tachypneic and respiratory rate is in the 20s monitor shows 4130 but this I believe is secondary more to patient's movements. Patient is alert, appropriate his neurologic exam overall is appropriate. Patient does have hyponatremia today is 127 close to his baseline he has been 130s to do any in the past 6 months. No significant anemia hemoglobin is 13.7, normal white count and platelets. Patients notes his last sodium check as outpatient was 126 and 127 is consistent with recent levels. Reviewed his CBC and CMP results, they are aware waiting on mag level. They are agreeable to try an additional dose to see if this is helpful. Patient has not tolerated other medications such as Ativan in the past but isn't on pramipexole. Reviewed will try an additional dose here in the department to see if this is helpful. Patient does have urine sample pending as well as magnesium level. Patient signed out to Dr. Bazan while awaiting these results and response to pramipexole. Dr Bazan: Patient states he would like to go home. He feels that if he is at home where he can sit and stand and move around and sit in his wheelchair he would be better off. His sodium today is at baseline. There was no signs of any specific infection. He is afebrile. I did talk with him that if his symptoms do not improve or continue to work so that he may need to talk with his primary doctor about a referral to see Neurology. He expressed understanding and agreement with. Discharge Plan Departure Patient Disposition: Home Clinical Impression: Hyponatremia, Restless leg syndrome Instructions: DI for Restless Legs Syndrome Activity Restrictions/Additional Instructions: Your sodium level today is 127. Continue your home medications as prescribed, you can try an additional dose of pramipexole 0.25mg if needed when symptoms are significantly flared. Please return for new or worsening symptoms, altered mental status, new chest pain or shortness breath, vomiting, your GI or urinary symptoms, new weakness numbness or significant changes to movement or other new or concerning changes. Prescriptions: No Action sodium chloride 1,000 mg tablet,soluble See Rx Instructions .ROUTE .COMPLEX Qty: 60 2RF Dose Instruction: TAKE 1 TABLET BY MOUTH TWICE A DAY Rx Instructions: TAKE 1 TABLET BY MOUTH TWICE A DAY pramipexole 0.5 mg tablet 0.25 mg PO DAILY Qty: 90 3RF tramadol 50 mg tablet 50 mg PO BID PRN (Reason: pain) Qty: 60 2RF (DME) Disabled Parking Permint See Rx Instructions .ROUTE .MEDSUPPLY Qty: 1 0RF Rx Instructions: I find this patient to be medically disabled and qualified for Disabled Parking as indicated and signed on the Accompanying Disabled Parking Application for individuals. diclofenac sodium 1 % gel 2 g topical QID PRN Rx Instructions: apply to single elbow, wrist or hand; for hand includes palm/fingers/back of hand finasteride 5 mg tablet 5 mg PO DAILY Qty: 90 3RF tamsulosin 0.4 mg capsule 0.4 mg PO BEDTIME Qty: 90 3RF Referrals: Hany Mayberry, [Primary Care Provider] - Stand Alone Forms: Patient Portal/API
[2023-04-26 06:22] LABS: Add Manual Diff / Slide Review NO; Basophils Absolute Auto 100 /uL (0-100); Basophils Percent Auto 0.9 % (0-2); Eosinophils Absolute Auto 200 /uL (0-450); Eosinophils Percent Auto 2.8 % (2-4); Hemoglobin 13.7 g/dL (13.5-17.5); Lymphocytes Absolute Auto 1200 /uL (1100-4500); Lymphocytes Percent Auto 15.4 % (25-40); Mean Corpuscular HGB Conc 34.3 % (30-36); Mean Corpuscular Hemoglobin 32.3 PG (26-34); Mean Corpuscular Volume 94.1 fL (80-100); Monocytes Absolute Auto 700 /uL (0-900); Monocytes Percent Auto 8.8 % (3-14); Neutrophils Absolute Auto 5500 /uL (1500-7000); Neutrophils Percent Auto 72.1 % (50-75); Platelet Count 221 X10^3/uL (150-400); Red Blood Cell Count 4.25 X10^6/uL (4.5-5.9); Red Cell Distribution Width 13.6 % (11.6-14.8); White Blood Cell Count 7.6 X10^3/uL (4.5-11.0)
[2023-04-26 06:26] LABS: Alanine Aminotransferase 18 IU/L (<50); Albumin 4.1 g/dL (3.5-5.0); Albumin Globulin Ratio 1.3 (1.0-2.8); Alkaline Phosphatase 103 U/L (38-126); Aspartate Aminotransferase 30 IU/L (17-59); BUN Creatinine Ratio 28.6 (6-22); Bilirubin Total 0.6 mg/dL (0.2-1.3); Blood Urea Nitrogen 18 mg/dL (9-20); Calcium 9.2 mg/dL (8.4-10.2); Carbon Dioxide 26 mmol/L (22-32); Chloride 95 mmol/L (98-107); Estimated Glomerular Filt Rate > 60 mL/min (>60); Globulin 3.2 g/dL (1.7-4.1); Glucose 103 mg/dL (80-110); HEMOLYSIS 26 (0-50); Potassium 4.3 mmol/L (3.4-5.1); Sodium 127 mmol/L (137-145); Total Protein 7.3 g/dL (6.3-8.2)
[2023-04-26 06:30] VITALS: BP 146/75; PULSE 96; RESP 30; O2SAT 96
[2023-04-26 06:50] LABS: Magnesium 1.9 mg/dL (1.6-2.3)
[2023-04-26] MEDS: PRAMIPEXOLE 0.25 MG TABLET PO (06:55)
[2023-04-26 07:00] VITALS: BP 154/77; PULSE 98; RESP 20; O2SAT 95
[2023-04-26 07:19] LABS: Bacteria Urine None Seen; Culture Indicated Urine Specimen Cultured; RBC Urine 0-1/HPF (0-5/HPF); Squamous Epithelial Cell Urine 0-1 /HPF (0-5/HPF); WBC Urine 10-30/HPF (0-5/HPF)
== END 2023-04-26 07:42 | disposition home or self-care (01) ==
PROVIDERS: Emergency Medicine; Emergency Provider Emergency Medicine; Family Provider Family Medicine; PCP Family Medicine
DX: G25.81 Restless legs syndrome (principal); E87.1 Hypo-osmolality and hyponatremia
CPT/HCPCS: 36415; 80053; 81003; 81015; 83735; 85025; 87086; 99283; 99284

== ENCOUNTER → 2023-06-13 15:24 | Outpatient (CLI) | payer MEDICARE, OTHER, SELFPAY ==
[2022-10-11 08:21] VITALS: BMI 19.0
[2023-06-13 17:43] LABS: Hematocrit 38.6 % (41-53); Hemoglobin 13.7 g/dL (13.5-17.5)
[2023-06-13 17:57] LABS: BUN Creatinine Ratio 26.8 (6-22); Blood Urea Nitrogen 19 mg/dL (9-20); Calcium 9.1 mg/dL (8.4-10.2); Carbon Dioxide 25 mmol/L (22-32); Chloride 97 mmol/L (98-107); Estimated Glomerular Filt Rate > 60 mL/min (>60); Glucose 88 mg/dL (80-110); HEMOLYSIS < 15 (0-50); Potassium 3.8 mmol/L (3.4-5.1); Sodium 130 mmol/L (137-145)
[2023-06-13 18:02] LABS: Creatinine Urine Random 55.6 mg/dL; Protein (Total) Urine Random 34 mg/dL (0-12); Protein Creatinine Ratio Urine 0.61 GRAM/24H
== END ==
PROVIDERS: Family Provider Family Medicine; PCP Family Medicine; Referring Provider Specialist; Visit Provider Specialist
DX: R80.9 Proteinuria, unspecified (principal); N05.9 Unspecified nephritic syndrome with unspecified morphologic changes; D64.9 Anemia, unspecified
CPT/HCPCS: 36415; 80048; 82570; 84156; 85014; 85018

== ENCOUNTER → 2023-06-27 15:11 | Outpatient (CLI) | payer MEDICARE, OTHER, SELFPAY ==
[2022-10-11 08:21] VITALS: BMI 19.0
[2023-06-27 16:44] LABS: Hematocrit 38.6 % (41-53); Hemoglobin 13.4 g/dL (13.5-17.5)
[2023-06-27 16:57] LABS: BUN Creatinine Ratio 24.3 (6-22); Blood Urea Nitrogen 18 mg/dL (9-20); Calcium 9.3 mg/dL (8.4-10.2); Carbon Dioxide 25 mmol/L (22-32); Chloride 99 mmol/L (98-107); Estimated Glomerular Filt Rate > 60 mL/min (>60); Glucose 99 mg/dL (80-110); HEMOLYSIS < 15 (0-50); Potassium 4.6 mmol/L (3.4-5.1); Sodium 129 mmol/L (137-145)
[2023-06-27 17:28] LABS: Prostate Specific Antigen 1.21 ng/mL (0.10-4.00)
[2023-06-27 17:56] LABS: Creatinine Urine Random 33.5 mg/dL; Protein (Total) Urine Random 36 mg/dL (0-12); Protein Creatinine Ratio Urine 1.07 GRAM/24H
== END ==
PROVIDERS: Family Provider Family Medicine; PCP Family Medicine; Referring Provider Student in an Organized Health Care Education/Training Program; Visit Provider Student in an Organized Health Care Education/Training Program
DX: N05.9 Unspecified nephritic syndrome with unspecified morphologic changes (principal); N40.1 Benign prostatic hyperplasia with lower urinary tract symptoms; D64.9 Anemia, unspecified; R80.9 Proteinuria, unspecified; N13.8 Other obstructive and reflux uropathy
CPT/HCPCS: 36415; 80048; 82570; 84153; 84156; 85014; 85018

== ENCOUNTER → 2023-08-29 12:56 | Outpatient (CLI) | payer MEDICARE, OTHER, SELFPAY ==
[2022-10-11 08:21] VITALS: BMI 19.0
== END ==
LOC: WC 13:17
PROVIDERS: Family Provider Family Medicine; PCP Family Medicine; Referring Provider Physician Assistant; Visit Provider Surgery
DX: I73.9 Peripheral vascular disease, unspecified (principal); L84 Corns and callosities; F17.210 Nicotine dependence, cigarettes, uncomplicated
CPT/HCPCS: 99203; 99213

== ENCOUNTER → 2023-09-06 11:41 | Outpatient (CLI) | payer MEDICARE, OTHER, SELFPAY ==
[2022-10-11 08:21] VITALS: BMI 19.0
--- NOTE | 2023-09-06 11:42 | DI.RAD.S_ITS ---
PROCEDURE: XR SHOULDER LT MIN 2V INDICATIONS: Possible anterior dislocation of shoulder TECHNIQUE: 4 views of the shoulder were acquired. COMPARISON: [facility], CR, XR SHOULDER RT MIN 2V, 12/06/2022, 12:06. FINDINGS: Bones: No fractures or dislocations. Superior migration of humeral head is seen with loss of subcoracoid space concerning for full-thickness rotator cuff tendon rupture. Moderate acromioclavicular joint and glenohumeral joint osteoarthritic changes are seen. No suspicious bony lesions. Visualized ribs appear intact. Soft tissues: No suspicious soft tissue calcifications. IMPRESSION: No acute shoulder fracture or dislocation. Moderate left shoulder joint osteoarthritis. Superior migration of humeral head in relation to glenoid concerning for rotator cuff tendon rupture suggest clinical correlation. Dictated by: Kirt Noel M.D. on 09/06/2023 at 13:21 Approved by: Kirt Noel M.D. on 09/06/2023 at 13:35
== END ==
PROVIDERS: Family Provider Family Medicine; PCP Family Medicine; Referring Provider Physician Assistant; Visit Provider Physician Assistant
DX: M19.012 Primary osteoarthritis, left shoulder (principal); M25.512 Pain in left shoulder; M25.60 Stiffness of unspecified joint, not elsewhere classified
CPT/HCPCS: 73030

== ENCOUNTER → 2023-09-23 13:31 | Outpatient (CLI) | payer MEDICARE, OTHER, SELFPAY ==
[2022-10-11 08:21] VITALS: BMI 19.0
[2023-09-23 15:06] LABS: BUN Creatinine Ratio 22.4 (6-22); Blood Urea Nitrogen 17 mg/dL (9-20); Calcium 9.1 mg/dL (8.4-10.2); Carbon Dioxide 22 mmol/L (22-32); Chloride 96 mmol/L (98-107); Estimated Glomerular Filt Rate > 60 mL/min (>60); Glucose 99 mg/dL (80-110); HEMOLYSIS < 15 (0-50); Potassium 4.5 mmol/L (3.4-5.1); Sodium 128 mmol/L (137-145)
[2023-09-23 15:26] LABS: Protein (Total) Urine Random 28 mg/dL (0-12); Protein Creatinine Ratio Urine 0.87 GRAM/24H
== END ==
PROVIDERS: Family Provider Family Medicine; PCP Family Medicine; Referring Provider Student in an Organized Health Care Education/Training Program; Visit Provider Student in an Organized Health Care Education/Training Program
DX: N05.9 Unspecified nephritic syndrome with unspecified morphologic changes (principal); R80.9 Proteinuria, unspecified
CPT/HCPCS: 36415; 80048; 82570; 84156

== ENCOUNTER → 2023-10-10 11:34 | Outpatient (CLI) | payer MEDICARE, OTHER, SELFPAY ==
[2022-10-11 08:21] VITALS: BMI 19.0
--- NOTE | 2023-10-10 11:35 | DI.MRI.S_ITS ---
PROCEDURE: MR SHOULDER LT WO CON INDICATIONS: Pain in left shoulder TECHNIQUE: Noncontrast oblique coronal T2 fast spin echo with fat saturation, oblique sagittal T1 spin echo and T2 fast spin echo with fat saturation, axial T1 spin echo and T2 fast spin echo with fat saturation through the shoulder. COMPARISON: [facility], MR, MR SHOULDER RT WO CON, 03/22/2023, 12:20. [facility], CR, XR SHOULDER LT MIN 2V, 09/06/2023, 11:45. FINDINGS: Image quality: Diagnostic, but there is motion artifact Rotator cuff: Bulk: Mild fatty atrophy of the teres minor. Moderate fatty atrophy of the supraspinatus and infraspinatus . Mild fatty atrophy of the subscapularis Teres minor: Intact Supraspinatus: Full-thickness tear, with tendinous retraction to the level of the AC joint. Infraspinatus: Partial-thickness articular and interstitial tears. Superimposed tendinosis Subscapularis: Full-thickness partial width tear, particularly involving the superior fibers Superimposed tendinosis. Bones and bursae: GH joint: Moderate degenerative changes and joint effusion AC joint: Moderate degenerative changes Humeral head: No acute fracture Scapula and acromion: Intact Bursa: Effusion extends into the bursa Capsule: Labrum: Circumferential attenuation due to degeneration. Suspected superior labral tear. This likely extends to the anterior superior portion and anterior posterior portion. There is also signal abnormality in the anterior inferior labrum. Long head biceps tendon: Not well seen IGHL: There is thickening and pericapsular edema Rotator interval: Partially efface with edema Soft tissues: No axillary adenopathy. Lungs are not well seen. IMPRESSION: Moderate glenohumeral and acromioclavicular degenerative changes. Glenohumeral effusion extends into the bursa. Moderate atrophy of the supraspinatus and infraspinatus. Mild atrophy of the subscapularis and teres minor. Full-thickness tear of the supraspinatus and partial tears and tendinosis of the subscapularis and infraspinatus. Circumferentially degenerated labrum with suspected semi circumferential superior labral tear. Signal abnormality anterior inferior aspect may also represent prior injury with scar/remodeling. Likely degeneration and tear of the long head biceps tendon, which is not well seen (differential includes prior tenodesis). Edema and thickening at the rotator interval and inferior glenohumeral ligament, sometimes seen with adhesive capsulitis. Dictated by: Camilo Hastings M.D. on 10/10/2023 at 13:27 Approved by: Camilo Hastings M.D. on 10/10/2023 at 13:35
== END ==
PROVIDERS: Family Provider Family Medicine; PCP Family Medicine; Referring Provider Orthopaedic Surgery; Visit Provider Orthopaedic Surgery
DX: M75.122 Complete rotator cuff tear or rupture of left shoulder, not specified as traumatic (principal); M25.512 Pain in left shoulder
CPT/HCPCS: 73221

== ENCOUNTER → 2024-03-27 16:07 | Outpatient (CLI) | payer MEDICARE, OTHER, SELFPAY ==
[2022-10-11 08:21] VITALS: BMI 19.0
[2024-03-27 17:21] LABS: Add Manual Diff / Slide Review NO; Basophils Absolute Auto 100 /uL (0-100); Basophils Percent Auto 1.2 % (0-2); Eosinophils Absolute Auto 300 /uL (0-450); Eosinophils Percent Auto 4.9 % (2-4); Hematocrit 40.6 % (41-53); Hemoglobin 14.2 g/dL (13.5-17.5); Lymphocytes Absolute Auto 1800 /uL (1100-4500); Lymphocytes Percent Auto 26.7 % (25-40); Mean Corpuscular HGB Conc 34.9 % (30-36); Mean Corpuscular Hemoglobin 31.5 PG (26-34); Mean Corpuscular Volume 90.3 fL (80-100); Monocytes Absolute Auto 800 /uL (0-900); Monocytes Percent Auto 11.7 % (3-14); Neutrophils Absolute Auto 3800 /uL (1500-7000); Neutrophils Percent Auto 55.5 % (50-75); Platelet Count 216 X10^3/uL (150-400); Red Blood Cell Count 4.49 X10^6/uL (4.5-5.9); Red Cell Distribution Width 14.1 % (11.6-14.8); White Blood Cell Count 6.8 X10^3/uL (4.5-11.0)
[2024-03-27 18:04] LABS: Alanine Aminotransferase 14 IU/L (<50); Albumin 3.9 g/dL (3.5-5.0); Albumin Globulin Ratio 1.1 (1.0-2.8); Alkaline Phosphatase 114 U/L (38-126); Aspartate Aminotransferase 29 IU/L (17-59); BUN Creatinine Ratio 23.8 (6-22); Bilirubin Total 0.5 mg/dL (0.2-1.3); Blood Urea Nitrogen 19 mg/dL (9-20); Calcium 9.1 mg/dL (8.4-10.2); Carbon Dioxide 20 mmol/L (22-32); Chloride 101 mmol/L (98-107); Estimated Glomerular Filt Rate > 60 mL/min (>60); Globulin 3.4 g/dL (1.7-4.1); Glucose 87 mg/dL (80-110); HEMOLYSIS < 15 (0-50); Potassium 4.1 mmol/L (3.4-5.1); Sodium 128 mmol/L (137-145); Total Protein 7.3 g/dL (6.3-8.2)
[2024-03-27 18:08] LABS: Creatinine Urine Random 28.67 mg/dL; Protein (Total) Urine Random 26 mg/dL (0-12)
[2024-03-27 18:29] LABS: HEMOLYSIS < 15 (0-50); Iron 60 ug/dL (49-181)
[2024-03-27 18:41] LABS: Percent Iron Saturation 18 % (20-50); Total Iron Binding Capacity 327 ug/dL (261-462); Transferrin 257 mg/dL (206-381)
[2024-03-27 19:02] LABS: TSH w/ Reflex to FT4 2.17 uIU/mL (0.47-4.68)
== END ==
PROVIDERS: Family Provider Family Medicine; PCP Family Medicine; Referring Provider Student in an Organized Health Care Education/Training Program; Visit Provider Student in an Organized Health Care Education/Training Program
DX: N05.9 Unspecified nephritic syndrome with unspecified morphologic changes (principal); E87.1 Hypo-osmolality and hyponatremia; R80.9 Proteinuria, unspecified; N40.1 Benign prostatic hyperplasia with lower urinary tract symptoms; N13.8 Other obstructive and reflux uropathy; Z79.899 Other long term (current) drug therapy; G25.81 Restless legs syndrome
CPT/HCPCS: 36415; 80053; 82570; 83540; 83550; 84156; 84443; 85025

== ENCOUNTER → 2024-12-17 16:09 | Outpatient (CLI) | payer MEDICARE, OTHER, SELFPAY ==
[2022-10-11 08:21] VITALS: BMI 19.0
== END ==
LOC: LAB 16:10
PROVIDERS: Family Provider Family Medicine; PCP Family Medicine; Visit Provider Family Medicine
DX: R30.0 Dysuria (principal)
CPT/HCPCS: 87077; 87086; 87186

== ENCOUNTER 2025-01-01 20:21 | Emergency (ER) | payer OTHER, MEDICARE, SELFPAY ==
[2022-10-11 08:21] VITALS: BMI 19.0
[2025-01-01 20:26] VITALS: BP 193/79; PULSE 81; RESP 18; TEMP 36.9; O2SAT 97; BMI 20.7
--- NOTE | 2025-01-01 23:04 | DI.RAD.S_ITS ---
PROCEDURE: XR CHEST 1V INDICATIONS: chest pain TECHNIQUE: One view of the chest was acquired. COMPARISON: [facility], CR, XR CHEST 2V, 10/26/2022, 13:55. [facility], CR, XR CHEST 1V, 01/11/2022, 2:20. FINDINGS AND IMPRESSION: Mild diffuse peribronchial thickening again seen possibly bronchitis. No dense airspace disease or pleural effusions on this single view study. Normal heart size. Aortic calcifications. Degenerative osseous changes. Dictated by: Camilo Hastings M.D. on 01/01/2025 at 23:41 Approved by: Camilo Hastings M.D. on 01/01/2025 at 23:42
[2025-01-01 23:20] VITALS: BP 170/82; PULSE 81; RESP 19; O2SAT 96
[2025-01-01 23:30] VITALS: BP 173/84; PULSE 81; RESP 19; O2SAT 96
--- NOTE | 2025-01-01 23:30 | EKG_ITS ---
[address] [address] Test Date: 2025-01-01 Pat Name: Gene Mane Department: [facility] Room: Gender: Male [employer] Coordinator: JAIME : 1940 Requested By: Order Number: [id number] Reading MD: John Castillo Measurements Intervals [place] Rate: 78 P: 64 VA: 238 QRS: 14 QRSD: 92 T: 57 QT: 358 QTc: 408 Interpretive Statements Sinus rhythm with 1st degree AV block Electronically Signed On 01-03-2025 17:28:59 PDT by John Casitllo
[2025-01-01 23:35] LABS: Add Manual Diff / Slide Review NO; Basophils Absolute Auto 100 /uL (0-100); Basophils Percent Auto 1.1 % (0-2); Eosinophils Absolute Auto 300 /uL (0-450); Eosinophils Percent Auto 4.1 % (2-4); Hemoglobin 11.2 g/dL (13.5-17.5); Lymphocytes Absolute Auto 1500 /uL (1100-4500); Lymphocytes Percent Auto 22.4 % (25-40); Mean Corpuscular HGB Conc 32.9 % (30-36); Mean Corpuscular Hemoglobin 26.7 PG (26-34); Mean Corpuscular Volume 81.1 fL (80-100); Monocytes Absolute Auto 700 /uL (0-900); Monocytes Percent Auto 10.4 % (3-14); Neutrophils Absolute Auto 4100 /uL (1500-7000); Platelet Count 255 X10^3/uL (150-400); Red Blood Cell Count 4.19 X10^6/uL (4.5-5.9); Red Cell Distribution Width 14.9 % (11.6-14.8); White Blood Cell Count 6.6 X10^3/uL (4.5-11.0)
[2025-01-01 23:47] LABS: Alanine Aminotransferase 19 IU/L (<50); Albumin 4.1 g/dL (3.5-5.0); Albumin Globulin Ratio 1.3 (1.0-2.8); Alkaline Phosphatase 107 U/L (38-126); Aspartate Aminotransferase 31 IU/L (17-59); BUN Creatinine Ratio 16.3 (6-22); Bilirubin Total 0.5 mg/dL (0.2-1.3); Blood Urea Nitrogen 16 mg/dL (9-20); Calcium 8.7 mg/dL (8.4-10.2); Carbon Dioxide 21 mmol/L (22-32); Chloride 102 mmol/L (98-107); Creatine Kinase 113 U/L (55-170); Estimated Glomerular Filt Rate > 60 mL/min (>60); Globulin 3.1 g/dL (1.7-4.1); Glucose 100 mg/dL (70-99); HEMOLYSIS < 15 (0-50); Lipase 92 U/L (23-300); Potassium 4.3 mmol/L (3.4-5.1); Sodium 131 mmol/L (137-145); Total Protein 7.2 g/dL (6.3-8.2)
--- NOTE | 2025-01-01 23:53 | INF.NOTE ---
Lungs posterior throughout expiratory wheezing on auscultation.
[2025-01-01 23:59] LABS: NT-proBNP (BNP-Adult 18+) 45 pg/mL (<450); Troponin I < 0.012 ng/mL (0.01-0.034)
--- NOTE | 2025-01-01 23:59 | ED.EXTPRO ---
HPI - Extremity Problem General Chief complaint: Extremity Problem,Nontraumatic Stated complaint: Swollen ankles, numbness x2days Time Seen by Provider: 01/01/25 23:04 Source: patient and family Mode of arrival: Wheelchair History of Present Illness HPI Narrative: 84-year-old male with no known heart failure, liver failure, kidney failure, with chief complaint of bilateral ankle swelling for 2 days. He did admit to tripping over his wheelchair 2 days ago, and twisted both ankles on the way down. No fevers or chills. Denies chest pain shortness of breath, no cough or fevers. Denies abdominal discomfort. No changes in medications or missed doses of any medications, no new medications. Related Data Home Medications ?Medication ?Instructions ?Recorded ?Confirmed sodium chloride 1,000 mg soluble 1,000 mg PO TID 02/21/24 12/17/24 tablet omeprazole magnesium [Prilosec OTC] PO 07/05/24 12/17/24 Previous Rx's ?Medication ?Instructions ?Recorded Disabled Parking Permint #1 ea 12/07/22 tamsulosin 0.4 mg capsule 0.4 mg PO BEDTIME #90 caps 05/31/24 finasteride 5 mg tablet 5 mg PO DAILY #90 tabs 08/17/24 sildenafil (pulm.hypertension) 20 20 mg PO .COMPLEX PRN sexual 09/14/24 mg tablet activity #50 tabs pramipexole 0.25 mg tablet 0.25 mg PO DAILY #30 tabs 11/26/24 nortriptyline 25 mg capsule 25 mg PO BEDTIME #90 caps 12/11/24 cephalexin 500 mg capsule 500 mg PO QID 7 days #28 caps 01/02/25 Allergies Allergy/AdvReac Type Severity Reaction Status Date / Time methocarbamol AdvReac Intermediate Confusion Verified 01/01/25 20:26 codeine AdvReac Mild ABD Verified 01/01/25 20:26 PAIN/GI UPSET Patient History Medical History UTI (urinary tract infection) Tobacco use disorder Insomnia GERD (gastroesophageal reflux disease) Zoster Seborrheic keratoses Incomplete bladder emptying BPH w urinary obs/LUTS Right anterior shoulder pain Atypical nevi Arthritis of both shoulder regions Bilateral shoulder pain Left foot pain Hyponatremia Toenail fungus Gait instability Neck mass Well adult exam Erectile dysfunction Uses walker BPH (benign prostatic hyperplasia) Surgical History Anesthesia History of cataract removal with insertion of prosthetic lens Family History Sister Kidney disease Brother Cancer Social History (System 07/14/23 @ 17:50 by Jamia Narvaez) household members: spouse Smoking Status: Current every day smoker Smoking Status: Current every day smoker tobacco type: cigarettes alcohol intake frequency: 0-2 drinks per day Exam Narrative Exam Narrative: GENERAL: Well-developed patient, in mild distress. HEAD: Atraumatic. Normocephalic. EYES: Pupils equal round and reactive. Extraocular motions intact. No scleral icterus. No injection or drainage. ENT: Nose without bleeding, purulent drainage. Throat without erythema, tonsillar hypertrophy or exudate. Airway patent. NECK: Trachea midline. Non tender CARDIOVASCULAR: Regular rate and rhythm without murmurs, gallops, or rubs. RESPIRATORY: Clear to auscultation. Breath sounds equal bilaterally. No wheezes, rales, or rhonchi. GASTROINTESTINAL: Abdomen soft, non-tender, nondistended. EXTREMITIES: Mild swelling to both ankles but not particular to feet/toes, nor proximal legs, slight erythema to the left lateral foreleg, with some warmth over the left lateral foreleg. Tenderness along medial or lateral joint line both ankles. No gross deformities. Good DP pulses both sides. BACK: Nontender without deformity or crepitance. No flank tenderness. NEURO: AOx3. Motor functions grossly nonfocal SKIN: No rash or erythema of visible areas Initial Vital Signs Initial Vital Signs: Vital Signs Temperature 98.5 F 01/01/25 20:26 Pulse Rate 81 01/01/25 20:26 Respiratory Rate 18 01/01/25 20:26 Blood Pressure 193/79 H 01/01/25 20:26 Pulse Oximetry 97 01/01/25 20:26 Oxygen Delivery Method Room Air 01/01/25 20:26 Course Orders Ordered: ED Orders 01/01/25 23:04 XR chest 1V Stat EKG-12 Lead Stat 01/01/25 23:20 Complete Blood Count AUTO DIFF Stat Comprehensive Metabolic Panel Stat Lipase Stat NT-proBNP (BNP-Adult 18+) Stat Troponin & CK Cardiac Panel Stat 01/02/25 00:09 XR ankle LT min 3V Stat XR ankle RT min 3V Stat Discontinued Medications Cephalexin HCl (Cephalexin 250 Mg Capsule) 500 mg PO NOW ONE Stop: 01/02/25 01:00 Last Admin: 01/02/25 01:16 Dose: 500 mg Documented By: RICK Vital Signs Vital signs: Vital Signs - 8 hr 01/01/25 20:26 01/01/25 23:20 01/01/25 23:20 Temperature 98.5 F Pulse Rate 81 81 Respiratory Rate 18 19 Blood Pressure 193/79 H 170/82 H Pulse Oximetry 97 96 Oxygen Delivery Method Room Air Room Air 01/01/25 23:30 01/01/25 23:30 01/02/25 00:00 Temperature Pulse Rate 81 97 H Respiratory Rate 19 29 H Blood Pressure 173/84 H Pulse Oximetry 96 96 Oxygen Delivery Method Room Air 01/02/25 00:00 01/02/25 00:30 01/02/25 00:30 Temperature Pulse Rate 87 Respiratory Rate 21 Blood Pressure 170/83 H 184/76 H Pulse Oximetry 95 Oxygen Delivery Method 01/02/25 00:30 01/02/25 01:00 01/02/25 01:00 Temperature Pulse Rate 87 86 Respiratory Rate 22 21 Blood Pressure 181/77 H Pulse Oximetry 95 94 Oxygen Delivery Method Room Air MDM - Extremity (Nontraumatic) Lab Data Attestation: I reviewed the patient's lab results. Lab results narrative: White blood cell count 6600, hemoglobin 11.2, platelets adequate. Glucose 100. Normal renal function with BUN 16 and creatinine 0.98. Serum CO2 21 slight decreased. Sodium 131 mildly decreased. Potassium 4.3 normal. Liver functions and lipase normal. BNP not elevated. Troponin negative/unmeasurable. 01/01/25 23:20 01/01/25 23:20 Labs: Lab Results 01/01/25 Range/Units 23:20 WBC 6.6 (4.5-11.0) X10^3/uL RBC 4.19 L (4.5-5.9) X10^6/uL Hgb 11.2 L (13.5-17.5) g/dL Hct 34.0 L (41-53) % MCV 81.1 (80-100) fL MCH 26.7 (26-34) PG MCHC 32.9 (30-36) % RDW 14.9 H (11.6-14.8) % Plt Count 255 (150-400) X10^3/uL Neut % (Auto) 62.0 (50-75) % Lymph % (Auto) 22.4 L (25-40) % [place] % (Auto) 10.4 (3-14) % Eos % (Auto) 4.1 H (2-4) % Baso % (Auto) 1.1 (0-2) % Neut # (Auto) 4100 (6013-9789) /uL Lymph # (Auto) 1500 (4522-5742) /uL [place] # (Auto) 700 (0-900) /uL Eos # (Auto) 300 (0-450) /uL Baso # (Auto) 100 (0-100) /uL Sodium 131 L (137-145) mmol/L Potassium 4.3 (3.4-5.1) mmol/L Chloride 102 (98-107) mmol/L Carbon Dioxide 21 L (22-32) mmol/L BUN 16 (9-20) mg/dL Creatinine 0.98 (0.66-1.25) mg/dL Estimated GFR > 60 (>60) mL/min BUN/Creatinine Ratio 16.3 (6-22) Glucose 100 H (70-99) mg/dL Calcium 8.7 (8.4-10.2) mg/dL Total Bilirubin 0.5 (0.2-1.3) mg/dL AST 31 (17-59) IU/L ALT 19 (<50) IU/L Alkaline Phosphatase 107 (38-126) U/L Total Creatine Kinase 113 (55-170) U/L Troponin I < 0.012 (0.01-0.034) ng/mL NT-Pro-B Natriuret Pep 45 (<450) pg/mL Total Protein 7.2 (6.3-8.2) g/dL Albumin 4.1 (3.5-5.0) g/dL Globulin 3.1 (1.7-4.1) g/dL Albumin/Globulin Ratio 1.3 (1.0-2.8) Lipase 92 (23-300) U/L Imaging Data Chest x-ray: Radiologist's Impression: [address] [address] XRay Report Signed Patient: Gene Mane MR#: [id number] : 1940 Acct:[id number] Age/Sex: 84 / M Date of Service: 01/01/25 Loc: ED Accession Number: [id number] Procedure: XR chest 1V Ordering Provider: Jhony Fish MD PROCEDURE: XR CHEST 1V INDICATIONS: chest pain TECHNIQUE: One view of the chest was acquired. COMPARISON: [facility], CR, XR CHEST 2V, 10/26/2022, 13:55. [facility], CR, XR CHEST 1V, 01/11/2022, 2:20. FINDINGS AND IMPRESSION: Mild diffuse peribronchial thickening again seen possibly bronchitis. No dense airspace disease or pleural effusions on this single view study. Normal heart size. Aortic calcifications. Degenerative osseous changes. Dictated by: Camilo Hastings M.D. on 01/01/2025 at 23:41 Approved by: Camilo Hastings M.D. on 01/01/2025 at 23:42 Extremity x-ray #1: Radiologist's Impression: [address] [address] XRay Report Signed Patient: Gene Mane MR#: [id number] : 1940 Acct:[id number] Age/Sex: 84 / M Date of Service: 01/02/25 Loc: ED Accession Number: [id number] Procedure: XR ankle RT min 3V Ordering Provider: Jhony Fish MD PROCEDURE: XR ANKLE RT MIN 3V INDICATIONS: R ankle pain swelling, tripped TECHNIQUE: 3 views of the ankle were acquired. COMPARISON: [facility], CR, XR ANKLE LT MIN 3V, 07/06/2021, 16:28. FINDINGS AND IMPRESSION: Mild background arthrosis. No acute displaced fracture or dislocation. Soft tissue swelling is present, ligamentous injury remains possible. If there is high concern for occult injury, consider cross-sectional imaging. Dictated by: Camilo Hastings M.D. on 01/02/2025 at 0:52 Approved by: Camilo Hastings M.D. on 01/02/2025 at 0:53 Extremity x-ray #2: Radiologist's Impression: Close Ankle X-Ray (Signed) Camilo Hastings - 01/02/25 Ankle X-Ray (Signed) Venkata,Camilo - 01/02/25 Chest X-Ray (Signed) Venkata,Camilo - 01/01/25 Launch?Image [address] [address] XRay Report Signed Patient: Gene Mane MR#: [id number] : 1940 Acct:[id number] Age/Sex: 84 / M Date of Service: 01/02/25 Loc: ED Accession Number: [id number] Procedure: XR ankle LT min 3V Ordering Provider: Jhony Fish MD PROCEDURE: XR ANKLE LT MIN 3V INDICATIONS: left ankle pain swelling, tripped TECHNIQUE: 3 views of the ankle were acquired. COMPARISON: [facility], CR, XR ANKLE LT MIN 3V, 07/06/2021, 16:28. FINDINGS AND IMPRESSION: No acute displaced fracture or dislocation. [id number] background arthrosis of the midfoot and tibiotalar joint. Diffuse heterogeneity of the bones, asymmetric to the contralateral ankle. Differential includes infection and heterogeneous demineralization. Consider cross-sectional imaging if there is further clinical concern. Dictated by: Camilo Hastings M.D. on 01/02/2025 at 0:49 Approved by: Camilo Hastings M.D. on 01/02/2025 at 0:51 ECG Data Attestation EKG: I personally reviewed and interpreted this ECG as follows: Interpretation: Normal sinus rhythm with first-degree AV block, ventricular rate 78, RI 238. No obvious ST segment elevation or depression changes. QRS 92. QTC 408. MDM Narrative Medical decision making narrative: 84 year-old male with bilateral ankle pain and swelling. Did not recall prior history of CHF, renal failure, liver problems. No prior blood clots to legs or lungs. He did in fact have recent injury 2 days ago at onset of swelling, when he tripped over his wheelchair. Triage studies initiate chest pain workup, including BNP, to evaluate for cardiopulmonary or liver or renal causes of bilateral lower extremity swelling. By history and examination seems more mechanical/injuries. X-rays bilateral ankles also requested. EKG without obvious ischemic changes. Chest x-ray and laboratory studies pending. Chest x-ray possible bronchitic changes. No recent cough symptoms. No mention of any lobar infiltrates or fluid overload changes. See radiology report. Lab studies: White blood cell count 6600, hemoglobin 11.2, platelets adequate. Glucose 100. Normal renal function with BUN 16 and creatinine 0.98. Serum CO2 21 slight decreased. Sodium 131 mildly decreased. Potassium 4.3 normal. Liver functions and lipase normal. BNP 45 not elevated. Troponin negative/unmeasurable. X-ray right ankle with arthritic change, no acute changes. See radiology report. X-ray left ankle with arthritic change, no acute changes. See radiology report. Redness to lateral aspect distal foreleg, possible cellulitis we will give oral Keflex 1st dose, send prescription further course to his pharmacy. Discharged home with . Wound recheck advised in clinic 2 days. Return precautions discussed. Discharge Plan Departure Patient Disposition: Home Clinical Impression: Left ankle strain, Right ankle strain, Cellulitis of left leg Instructions: DI for Cellulitis -- Adult, DI for Ankle Sprain Activity Restrictions/Additional Instructions: Swelling to both ankles, given advanced age this often is due to heart failure or liver failure or kidney failure. Screening studies were obtained which were unremarkable. By history however you had recent fall 2 days ago with ankle injuries to both sides. Ankle x-rays today showed no acute fractures or dislocations, arthritic changes noted both sides. On examination there some redness to the left distal foreleg, possible cellulitis skin infection. No fever on triage. Oral cephalexin antibiotic initial dose given in the emergency department, further prescription for more antibiotics sent to your pharmacy. Take antibiotics as directed. Recheck your left leg in follow up with your regular doctor in the next couple of days. Take Tylenol as needed for discomfort. Return earlier to this/nearest emergency department for any change worsening symptoms or any concerns prior. Prescriptions: New cephalexin 500 mg capsule 500 mg PO QID 7 Days Qty: 28 0RF No Action tamsulosin 0.4 mg capsule 0.4 mg PO BEDTIME Qty: 90 3RF finasteride 5 mg tablet 5 mg PO DAILY Qty: 90 3RF sildenafil (pulm.hypertension) 20 mg tablet 20 mg PO .COMPLEX PRN (Reason: sexual activity) Qty: 50 5RF Rx Instructions: 20 mg orally PRN; Take 3-5 p.o. 45 minutes prior to sexual activity. pramipexole 0.25 mg tablet 0.25 mg PO DAILY Qty: 30 6RF nortriptyline 25 mg capsule 25 mg PO BEDTIME Qty: 90 0RF (DME) Disabled Parking Permint See Rx Instructions .ROUTE .MEDSUPPLY Qty: 1 0RF Rx Instructions: I find this patient to be medically disabled and qualified for Disabled Parking as indicated and signed on the Accompanying Disabled Parking Application for individuals. sodium chloride 1,000 mg tablet,soluble 1,000 mg PO TID omeprazole magnesium [Prilosec OTC] PO Referrals: Hany Mayberry DO [Primary Care Provider, Family Practice] Stand Alone Forms: Patient Portal/API
[2025-01-02] VITALS: BP 170/83; PULSE 97; RESP 29; O2SAT 96
--- NOTE | 2025-01-02 00:09 | DI.RAD.S_ITS ---
PROCEDURE: XR ANKLE RT MIN 3V INDICATIONS: R ankle pain swelling, tripped TECHNIQUE: 3 views of the ankle were acquired. COMPARISON: [facility], CR, XR ANKLE LT MIN 3V, 07/06/2021, 16:28. FINDINGS AND IMPRESSION: Mild background arthrosis. No acute displaced fracture or dislocation. Soft tissue swelling is present, ligamentous injury remains possible. If there is high concern for occult injury, consider cross-sectional imaging. Dictated by: Camilo Hastings M.D. on 01/02/2025 at 0:52 Approved by: Camilo Hastings M.D. on 01/02/2025 at 0:53
--- NOTE | 2025-01-02 00:09 | DI.RAD.S_ITS ---
PROCEDURE: XR ANKLE LT MIN 3V INDICATIONS: left ankle pain swelling, tripped TECHNIQUE: 3 views of the ankle were acquired. COMPARISON: [facility], CR, XR ANKLE LT MIN 3V, 07/06/2021, 16:28. FINDINGS AND IMPRESSION: No acute displaced fracture or dislocation. [id number] background arthrosis of the midfoot and tibiotalar joint. Diffuse heterogeneity of the bones, asymmetric to the contralateral ankle. Differential includes infection and heterogeneous demineralization. Consider cross-sectional imaging if there is further clinical concern. Dictated by: Camilo Hastings M.D. on 01/02/2025 at 0:49 Approved by: Camilo Hastings M.D. on 01/02/2025 at 0:51
[2025-01-02 00:30] VITALS: BP 184/76; PULSE 87; RESP 21; RESP 22; O2SAT 95
[2025-01-02 01:00] VITALS: BP 181/77; PULSE 86; RESP 21; O2SAT 94
[2025-01-02] MEDS: cephALEXin 250 MG CAPSULE 500 MG PO (01:16)
== END 2025-01-02 01:26 | disposition home or self-care (01) ==
PROVIDERS: Emergency Provider Emergency Medicine; Family Provider Family Medicine; PCP Family Medicine
DX: S96.912A Strain of unspecified muscle and tendon at ankle and foot level, left foot, initial encounter (principal); S96.911A Strain of unspecified muscle and tendon at ankle and foot level, right foot, initial encounter; L03.116 Cellulitis of left lower limb; I50.9 Heart failure, unspecified; K72.90 Hepatic failure, unspecified without coma; N19 Unspecified kidney failure; R07.9 Chest pain, unspecified; W01.0XXA Fall on same level from slipping, tripping and stumbling without subsequent striking against object, initial encounter
CPT/HCPCS: 36415; 71045; 73610; 80053; 82550; 83690; 83880; 84484; 85025; 93005; 99284

== ENCOUNTER → 2025-06-04 14:22 | Outpatient (CLI) | payer MEDICARE, OTHER, SELFPAY ==
[2025-05-31 12:50] VITALS: BMI 19.0
[2025-06-04 15:19] LABS: Protein (Total) Urine Random 77 mg/dL (0-12); Protein Creatinine Ratio Urine 2.49 GRAM/24H
[2025-06-04 15:32] LABS: Blood Urea Nitrogen 19 mg/dL (9-20); Calcium 9.1 mg/dL (8.4-10.2); Carbon Dioxide 26 mmol/L (22-32); Chloride 98 mmol/L (98-107); Estimated Glomerular Filt Rate > 60 mL/min (>60); Glucose 93 mg/dL (70-99); HEMOLYSIS 20 (0-50); Potassium 5.3 mmol/L (3.4-5.1); Sodium 130 mmol/L (137-145)
== END ==
PROVIDERS: Family Provider Family Medicine; PCP Family Medicine; Referring Provider Student in an Organized Health Care Education/Training Program; Visit Provider Student in an Organized Health Care Education/Training Program
DX: N05.9 Unspecified nephritic syndrome with unspecified morphologic changes (principal); R80.9 Proteinuria, unspecified
CPT/HCPCS: 36415; 80048; 82570; 84156

== ENCOUNTER → 2025-06-17 11:18 | Outpatient (CLI) | payer MEDICARE, OTHER, SELFPAY ==
[2025-05-31 12:50] VITALS: BMI 19.0
[2025-06-17 14:35] LABS: HEMOLYSIS < 15 (0-50); Potassium 5.3 mmol/L (3.4-5.1)
== END ==
PROVIDERS: Family Provider Family Medicine; PCP Family Medicine; Referring Provider Student in an Organized Health Care Education/Training Program; Visit Provider Student in an Organized Health Care Education/Training Program
DX: E87.5 Hyperkalemia (principal)
CPT/HCPCS: 36415; 84132